=== PATIENT | male | born 1940 | race Caucasian/White ===

== ENCOUNTER 2017-06-18 17:03 | Inpatient (IN) ==
[2017-06-18] MEDS ORDERED: CEFTRIAXONE 1 G in NS 100 ML IV ONE (17:29)
[2017-06-18] MEDS ORDERED: NS 1,000 ML IV ONE (17:29)
--- OUTSIDE RECORDS SUMMARY | 2017-06-18 17:30 | External Medical Summary | Referral Summary ---
:1940 Author Organization [facility] [place], [address] [place] [address] Care Team Providers Name Role Phone Bhaskar Echols Primary Care Physician Encounter VC Date(s): 09/06/15 - 09/06/15 [facility] [place] [place] [phone] [place] Discharge Disposition: 01-Home or Self Care Attending Physician: Bhaskar Echols MD Admitting Physician: Bhaskar Echols MD Vital Signs Most recent to oldest [Reference Range]: 1 Blood Pressure [90-140/60-90 mmHg] 154/62 mmHg *HI* (09/06/15 4:07 PM) Problem List Condition Effective Dates Status Health Status Informant Allergies(Confirmed) Active Benign prostatic Active hypertrophy(Confirmed) Bronchitis(Confirmed) Active Cardiomegaly - Active hypertensive(Confirmed) Cataracts(Confirmed) Active Angina/Chest Pain(Confirmed) < 08/18/14 Resolved Chronic gingivitis, plaque Active induced(Confirmed) Coronary artery disease(Confirmed) Active Macular degeneration(Confirmed) Active Depression(Confirmed) Active Hearing loss(Confirmed) Active Herpes zoster(Confirmed) Active Hyperlipidemia(Confirmed) Active Hypertension(Confirmed) Active Ear infections(Confirmed) Active Bronchitis with flu(Confirmed) Active Irritable bowel syndrome(Confirmed) Active Obesity(Confirmed) Active patient Osteoarthritis(Confirmed) Active Peptic ulcers(Confirmed) Active Pneumonia(Confirmed) Active Sinus infections(Confirmed) Active Tinea cruris(Confirmed) Active Chicken pox(Confirmed) Active Allergies, Adverse Reactions, Alerts Substance Reaction Severity Status pseudoephedrine Active Medications Aspir 81 81 mg, Oral, Daily, 0 Refill(s) Start Date: 04/07/14 Status: Orderedatenolol 25 mg oral tablet 25 mg 1 tabs, Oral, Daily, # 30 tabs, 3 Refill(s), Pharmacy: [facility] # [id number], Pt needs to be seen for further refills or refer to PCP., 1 tabs Oral Daily Start Date: 06/14/15 Status: Orderedcitalopram 40 mg oral tablet tabs, Oral, Daily, 0 Refill(s) Start Date: 04/07/14 Status: Ordereddocusate Daily, as needed, 0 Refill(s) Start Date: 04/07/14 Status: OrderedFiberCon 625 mg oral tablet 635m 3 daily, 0 Refill(s) Start Date: 04/07/14 Status: OrderedLovaza 1 gm, Oral, BID, 0 Refill(s) Start Date: 04/07/14 Status: Orderedpravastatin 40 mg oral tablet See Instructions, TAKE ONE TABLET BY MOUTH EVERY DAY, # 90 tabs, 3 Refill(s), eRx: [facility] #[id number], TAKE ONE TABLET BY MOUTH EVERY DAY Start Date: 04/20/15 Status: OrderedVitamin B Complex oral tablet 1 tabs, Oral, Daily, 0 Refill(s) Start Date: 04/07/14 Status: OrderedVitamin D3 400 Intl_Units, Oral, Daily, 0 Refill(s) Start Date: 08/24/15 Status: OrderedWellbutrin 100 mg oral tablet 1 tabs, Oral, Daily, 0 Refill(s) Start Date: 04/07/14 Status: Ordered Results No data available for this section Immunizations Vaccine Date Refusal Reason influenza virus vaccine, live 08/26/12 pneumococcal 23-polyvalent vaccine 08/06/06 Procedures Procedure Date Related Diagnosis Body Site Colonoscopy 10/21/99 Cardiac Bypass Tonsillectomy Social History Social History Type Response Smoking Status Never smoker Assessment and Plan No data available for this section
--- OUTSIDE RECORDS SUMMARY | 2017-06-18 17:31 | External Medical Summary | Referral Summary ---
:1940 Author Organization [facility] [place] [place] [address] Care Team Providers Name Role Phone Bhaskar Echols Primary Care Physician Encounter [facility] [id number] Date(s): 08/01/16 - 08/01/16 [facility] [place] [place] [phone] [place] Discharge Diagnosis: Chronic gingivitis Discharge Disposition: 01-Home or Self Care Attending Physician: Bhaskar Echols MD Admitting Physician: Bhaskar Echols MD Vital Signs Most recent to oldest [Reference Range]: 1 Peripheral Pulse Rate [60-100 bpm] 77 bpm (08/01/16 2:48 PM) Blood Pressure [90-140/60-90 mmHg] 160/68 mmHg *HI* (08/01/16 2:48 PM) SpO2 92 % (08/01/16 2:48 PM) Problem List Condition Effective Dates Status [...] Active Sinus infections(Confirmed) Active Tinea cruris(Confirmed) Active Tinea cruris(Confirmed) Active Chicken pox(Confirmed) Active Allergies, Adverse Reactions, Alerts Substance Reaction Severity Status pseudoephedrine Active Medications Aspir 81 81 mg, Oral, Daily, 0 Refill(s) Start Date: 04/07/14 Status: Orderedatenolol 25 mg oral tablet 25 mg 1 tabs, Oral, Daily, # 90 tabs, 2 Refill(s), Pharmacy: [id number], 1 tabs Oral Daily Start Date: 04/19/16 Status: Orderedcitalopram 40 mg oral tablet tabs, Oral, Daily, 0 Refill(s) Start Date: 04/07/14 Status: OrderedFiberCon 625 mg oral tablet 635m 3 daily, 0 Refill(s) Start Date: 04/07/14 Status: OrderedKeflex 500 mg oral capsule 500 mg 1 caps, Oral, QID, X 10 days, # 40 caps, 0 Refill(s), Pharmacy: [id number], 1 caps Oral QID,x10 days Start Date: 07/31/16 Stop Date: 08/10/16 Status: OrderedLovaza 1 gm, Oral, BID, 0 Refill(s) Start Date: 04/07/14 Status: Orderedpravastatin 40 mg oral tablet 40 mg 1 tabs, Oral, Bedtime (once a day), X 90 days, # 90 tabs, 2 Refill(s), Pharmacy: [id number], 1 tabs Oral Bedtime (once a day),x90 days Start Date: 04/19/16 Stop Date: 01/14/17 Status: OrderedVitamin B Complex oral tablet 1 tabs, Oral, Daily, 0 Refill(s) Start Date: 04/07/14 Status: OrderedWellbutrin 100 mg oral tablet 200 mg 2 tabs, Oral, Daily, 0 Refill(s) Start Date: 04/07/14 Status: Ordered Results No data available for this section Immunizations Vaccine Date Refusal Reason influenza virus vaccine, live 08/26/12 pneumococcal 23-polyvalent vaccine 08/06/06 Procedures Procedure Date Related Diagnosis Body Site Colonoscopy 10/21/99 Cardiac Bypass Tonsillectomy Social History Social History Type Response Smoking Status Never smoker Assessment and Plan Extracted from: Title: Ambulatory Patient Education Author: Bhaskar Echols MD Date: Dentistry Gingivitis Gingivitis is a form of gum (periodontal) disease that causes redness, soreness , and swelling (inflammation) of your gums. CAUSES The most common cause of gingivitis is poor oral hygiene. A sticky substance made of bacteria, mucus, and food particles (plaque), is deposited on the exposed part of teeth. As plaque builds up, it reac ts with the saliva in your mouth to form something called tartar. Tartar is a hard deposit that becomes trapped around the base of the tooth. Plaque and tartar irritate the gums, leading to the formati on of gingivitis. Other factors that increase your risk for gingivitis include: Tobacco use. Diabetes. Older age. Certain medications. Certain viral or fungal infections. Dry mouth. Hormonal changes such as during . Poor nutrition. Substance abuse. Poor fitting dental restorations or appliances. SYMPTOMS You may notice inflammation of the soft tissue (gingiva) around the teeth. When these tissues become inflamed, they bleed easily, especially during flossing or brushing. The gums may also be: Tender to the touch. Bright red, purple red, or have a shiny appearance. Swollen. Wearing away from the teeth (receding), which exposes more of the tooth. Bad breath is often present. Continued infection around teeth can eventually cause cavities and loosen teeth. This may lead to eventual tooth loss. DIAGNOSIS A medical and dental history will be taken. Your mouth, teeth, and gums will be examined. Your dentist will look for soft, swollen purple-red, irritated gums. There may be deposits of plaque and tartar at the base of the teeth. Your gums will be looked at for the degree of redness , puffiness, and bleeding tendencies. Your dentist will see if any of the teeth are loose. X-rays may be taken to see if th e inflammation has spread to the supporting structures of the teeth. TREATMENT The goal is to reduce and reverse the inflammation. Proper treatment can usually reverse the symptoms of gingivitis and prevent further progression of the disease. Have your teeth cleaned. During the cl eaning, all plaque and tartar will be removed. Instruction for proper home care will be given. You will need regular professional cleanings and check-ups in the future. HOME CARE INSTRUCTIONS [place] your teeth twice a day and floss at least once per day. When flossing, it is best to floss first then brush. Limit sugar between meals and maintain a well-balanced diet. Even the best dental hygiene will not prevent plaque from developing. It is necessary for you to see your dentist on a regular basis for cleaning and regular checkups. Your dentist can recommend proper oral hygiene and mouth care and suggest special toothpastes or mouth rinses. Stop smoking. SEEK DENTAL OR MEDICAL CARE IF: You have painful, reddened tissue around your teeth, or you have puffy swollen gums. You have difficulty chewing. You notice any loose or infected teeth. You have swollen glands. Your gums bleed easily when you brush your teeth or are very tender to the touch. This information is not intended to replace advice given to you by your health care provider. Make sure you discuss any questions you have with your health care provider. Document Released: 03/19/2002 Document Revised: 12/15/2012 Document Reviewed: 12/28/2011 [employer] Patient Education 2016 [employer] No follow up information was provided. Extracted from: Title: Office Visit Note Author: Bhaskar Echols MD Date: 08/01/16 Assessment/Plan 1.Chronic gingivitis Continue with the Keflex which seems to be working and he can afford it. Also would suggest warm salt water gargles. He needs to get into the dentist and have the teeth pulled. Ordered: Office Visit Level 2 Est 38588
--- OUTSIDE RECORDS SUMMARY | 2017-06-18 17:31 | External Medical Summary | Referral Summary ---
:1940 [facility] Address [address] [place] [address] [place] [address] Care Team Providers Name Role Phone Bhaskar Echols Primary Care Physician Encounter [facility] Date(s): 11/25/15 - 11/25/15 [facility] [place] [place] [phone] [place] Discharge Disposition: 01-Home or Self Care Attending Physician: Bhaskar Echols MD Admitting Physician: Bhaskar Echols MD Vital Signs Most recent to oldest [Reference Range]: 1 Peripheral Pulse Rate [60-100 bpm] 67 bpm (11/25/15 2:58 PM) Blood Pressure [90-140/60-90 mmHg] 132/64 mmHg (11/25/15 2:58 PM) SpO2 93 % (11/25/15 2:58 PM) Problem List Condition Effective Dates Status [...] 04/07/14 Status: Orderedatenolol 25 mg oral tablet See Instructions, TAKE ONE TABLET BY MOUTH DAILY; needs to schedule appt for further refills, or getfrom PCP, # 14 tabs, 0 Refill(s), Pharmacy: [facility] #[id number], TAKE ONE TABLET BY MOUTH DAILY; needs to schedule appt for further refills, or g... Start Date: 11/18/15 Status: Orderedcitalopram 40 mg oral tablet tabs, Oral, Daily, 0 Refill(s) Start Date: 04/07/14 Status: OrderedFiberCon 625 mg oral tablet 635m 3 daily, 0 Refill(s) Start Date: 04/07/14 Status: OrderedLovaza 1 gm, Oral, BID, 0 Refill(s) Start Date: 04/07/14 Status: Orderedpravastatin 40 mg oral tablet See Instructions, TAKE ONE TABLET BY MOUTH EVERY DAY, # 90 tabs, 3 Refill(s), eRx: [facility] #[id number], TAKE ONE TABLET BY MOUTH EVERY DAY Start Date: 04/20/15 Status: OrderedVitamin B Complex oral tablet 1 tabs, Oral, Daily, 0 Refill(s) Start Date: 04/07/14 Status: OrderedVitamin D3 400 Intl_Units, Oral, Daily, 0 Refill(s) Start Date: 08/24/15 Status: OrderedWellbutrin 100 mg oral tablet 200 [...]
--- OUTSIDE RECORDS SUMMARY | 2017-06-18 17:31 | External Medical Summary | Referral Summary ---
:1940 Author [facility] Address [address] [place] [address] [place] [address] Care Team Providers Name Role Phone Bhaskar Echols Primary Care Physician Encounter VC [facility] [id number] Date(s): 07/21/15 - 07/21/15 [facility] [place] [place] [phone] [place] Discharge Diagnosis: Tinea unguium Discharge Diagnosis: Abscess of pulp of tooth Discharge Diagnosis: Tinea cruris Discharge Disposition: 01-Home or Self Care Attending Physician: Bhaskar Echols MD Admitting Physician: Bhaskar Echols MD Vital Signs Most recent to oldest [Reference Range]: 1 Temperature Tympanic [36.6-38.1 degC] 37.6 degC (07/21/15 1:04 PM) Peripheral Pulse Rate [60-100 bpm] 76 bpm (07/21/15 1:04 PM) Respiratory Rate [14-20 br/min] 20 br/min (07/21/15 1:04 PM) Blood Pressure [90-140/60-90 mmHg] 140/68 mmHg (07/21/15 1:04 PM) Problem List Condition Effective Dates Status [...] 1 tabs, Oral, Daily, # 90 tabs, 3 Refill(s), Pharmacy: [facility] # [id number], 1 tabs Oral Daily Start Date: 01/04/16 Status: Orderedcitalopram 40 mg oral tablet tabs, Oral, Daily, 0 Refill(s) Start Date: 04/07/14 Status: OrderedFiberCon 625 mg oral tablet 635m 3 daily, 0 Refill(s) Start Date: 04/07/14 Status: OrderedLovaza 1 gm, Oral, BID, 0 Refill(s) Start Date: 04/07/14 Status: Orderedpravastatin 40 mg oral tablet 40 mg 1 tabs, Oral, Bedtime (once a day), # 90 tabs, 3 Refill(s), Pharmacy: [facility] #[id number], 1 tabs Oral Bedtime (once a day) Start Date: 01/04/16 Status: OrderedVitamin B Complex oral tablet 1 [...] Education Author: Bhaskar Echols MD Date: Dentistry Dental Care and Dentist Visits Dental care supports good overall health. Regular dental visits can also help you avoid dental pain, bleeding, infection, and other more serious health problems in the future. It is important to keep th e mouth healthy because diseases in the teeth, gums, and other oral tissues can spread to other areas of the body. Some problems, such as diabetes, heart disease, and pre-term labor have been associated with poor oral health. See your dentist every 6 months. If you experience emergency problems such as a toothache or broken tooth, go to the dentist right away. If you see your dentist regularly, you may catch problems early. It is easier to be treated for problems in the early stages. WHAT TO EXPECT AT A DENTIST VISIT Your dentist will look for many common oral health problems and recommend proper treatment. At your regular dental visit, you can expect: Gentle cleaning of the teeth and gums. This includes scraping and polishing. This helps to remove the sticky substance around the teeth and gums ( plaque). Plaque forms in the mouth shortly after ea ting. Over time, plaque hardens on the teeth as tartar. If tartar is not removed regularly, it can cause problems. Cleaning also helps remove stains. Periodic X-rays. These pictures of the teeth and supporting bone will help your dentist assess the health of your teeth. Periodic fluoride treatments. Fluoride is a natural mineral shown to help strengthen teeth. Fluoride treatmentinvolves applying a fluoride gel or varnish to the teeth. It is most commonly done in children. Examination of the mouth, tongue, jaws, teeth, and gums to look for any oral health problems, such as: Cavities (dental caries). This is decay on the tooth caused by plaque, sugar, and acid in the mouth. It is best to catch a cavity when it is small. Inflammation of the gums caused by plaque buildup (gingivitis). Problems with the mouth or malformed or misaligned teeth. Oral cancer or other diseases of the soft tissues or jaws. KEEP YOUR TEETH AND GUMS HEALTHY For healthy teeth and gums, follow these general guidelines as well as your dentist's specific advice: Have your teeth professionally cleaned at the dentist every 6 months. [place] twice daily with a fluoride toothpaste. Floss your teeth daily. Ask your dentist if you need fluoride supplements, treatments, or fluoride toothpaste. Eat a healthy diet. Reduce foods and drinks with added sugar. Avoid smoking. TREATMENT FOR ORAL HEALTH PROBLEMS If you have oral health problems, treatment varies depending on the conditions present in your teeth and gums. Your caregiver will most likely recommend good oral hygiene at each visit. For cavities, gingivitis, or other oral health disease, your caregiver will perform a procedure to treat the problem. This is typically done at a separate appointment. Sometimes your caregiver will refer you to another dental specialist for specific tooth problems or for surgery. SEEK IMMEDIATE DENTAL CARE IF: You have pain, bleeding, or soreness in the gum, tooth, jaw, or mouth area. A permanent tooth becomes loose or from the gum socket. You experience a blow or injury to the mouth or jaw area. Document Released: 06/04/2012 Document Revised: 12/15/2012 Document Reviewed: 06/04/2012 [facility] Patient Information 2015 [employer]. This information is not intended to replace advice given to you by your health care provider. Make sure you discuss any questions you have with your health care provider. Infectious Disease Jock Itch Jock itch is a fungal infection of the skin in the groin area. It is sometimes called "ringworm" even though it is not caused by a worm. A fungus is a type of germ that thrives in dark, damp places. CAUSES This infection may spread from: A fungus infection elsewhere on the body (such as athlete's foot). Sharing towels or clothing. This infection is more common in: Hot, humid climates. People who wear tight-fitting clothing or wet bathing suits for long periods of time. Athletes. Overweight people. People with diabetes. SYMPTOMS Jock itch causes the following symptoms: Red, pink or brown rash in the groin. Rash may spread to the thighs, anus , and buttocks. Itching. DIAGNOSIS Your caregiver may make the diagnosis by looking at the rash. Sometimes a skin scraping will be sent to test for fungus. Testing can be done either by looking under the microscope or by doing a culture (test to try to grow the fungus). A culture can take up to 2 weeks to come back. TREATMENT Jock itch may be treated with: Skin cream or ointment to kill fungus. Medicine by mouth to kill fungus. Skin cream or ointment to calm the itching. Compresses or medicated powders to dry the infected skin. HOME CARE INSTRUCTIONS Be sure to treat the rash completely. Follow your caregiver's instructions. It can take a couple of weeks to treat. If you do not treat the infection long enough, the rash can come back. Wear loose-fitting clothing. Men should wear cotton boxer shorts. Women should wear cotton underwear. Avoid hot baths. Dry the groin area well after bathing. SEEK MEDICAL CARE IF: Your rash is worse. Your rash is spreading. Your rash returns after treatment is finished. Your rash is not gone in 4 weeks. Fungal infections are slow to respond to treatment. Some redness may remain for several weeks after the fungus is gone. SEEK IMMEDIATE MEDICAL CARE IF: The area becomes red, warm, tender, and swollen. You have a fever. Document Released: 09/13/2003 Document Revised: 12/15/2012 Document Reviewed: 08/12/2009 [facility] Patient Information 2015 [employer]. This information is not intended to replace advice given to you by your health care provider. Make sure you discuss any questions you have with your health care provider. No follow up information was provided. Extracted from: Title: Office Visit Note Author: Bhaskar Echols MD Date: 07/21/15 Assessment/Plan Abscess of pulp of tooth, Pulpitis Rx for Keflex 500mg tid. Also suggest warm salt water gargles. Ordered: Office Visit Level 4 Est 06674 Tinea cruris, Tinea cruris [place] Exira. Rx for Lotrisone cream. Ordered: Office Visit Level 4 Est 40219 Tinea unguium, Tinea unguium Refer back to the podiatry. Ordered: Office Visit Level 4 Est 08763 Orders: cephalexin, 500 mg 1 caps, Oral, q8hr, # 30 caps, 0 Refill(s), Pharmacy: [facility] #[id number], 1 caps Oral q8hr clotrimazole-betamethasone topical, See Instructions, 1app Topical BID sparingly., # 15 g, 3 Refill(s) HYDROcodone-acetaminophen, 1 tabs, Oral, q6hr, as needed for pain, # 30 tabs , 0 Refill(s) tamsulosin, 0.4 mg 1 caps, Oral, Daily, # 30 caps, 3 Refill(s)
--- OUTSIDE RECORDS SUMMARY | 2017-06-18 17:31 | External Medical Summary | Referral Summary ---
:1940 Author Organization [facility] [place], [facility] Address [address] [place] [address] [place] [address] Care Team Providers Name Role Phone Bhaskar Echols Primary Care Physician Encounter [facility] Date(s): 02/29/16 - 02/29/16 [facility] [place], [address] [place] [phone] [place] Discharge Disposition: 01-Home or Self Care Attending Physician: Riley Roque PA-C Admitting Physician: Riley Roque PA-C Vital Signs Most recent to oldest [Reference Range]: 1 Temperature Tympanic [36.6-38.1 degC] 37 degC (02/29/16 5:48 PM) Peripheral Pulse Rate [60-100 bpm] 88 bpm (02/29/16 5:48 PM) Blood Pressure [90-140/60-90 mmHg] 132/62 mmHg (02/29/16 5:48 PM) SpO2 96 % (02/29/16 5:48 PM) Problem List Condition Effective Dates Status [...] Daily, # 90 tabs, 3 Refill(s), Pharmacy: [facility] # [id number], 1 tabs Oral Daily Start Date: 01/04/16 Status: Orderedcitalopram 40 mg oral tablet tabs, Oral, Daily, 0 Refill(s) Start Date: 04/07/14 Status: OrderedFiberCon 625 mg oral tablet 635m 3 daily, 0 Refill(s) Start Date: 04/07/14 Status: OrderedhydrOXYzine hydrochloride 25 mg oral tablet 25 mg 1 tabs, Oral, QID, as needed for anxiety, # 40 tabs, 0 Refill(s) Start Date: 02/03/16 Status: OrderedKeflex 500 mg oral capsule 500 mg 1 caps, Oral, TID, X 10 days, # 30 caps, 0 Refill(s), Pharmacy: [facility] #[id number], 1 caps Oral TID,x10 days Start Date: 02/22/16 Stop Date: 03/03/16 Status: OrderedLovaza 1 gm, Oral, BID, 0 Refill(s) Start Date: 04/07/14 Status: Orderedpravastatin 40 mg oral tablet 40 mg 1 tabs, Oral, Bedtime (once a day), # 90 tabs, 3 Refill(s), Pharmacy: [facility] #[id number], 1 tabs Oral Bedtime (once a day) [...]
--- OUTSIDE RECORDS SUMMARY | 2017-06-18 17:31 | External Medical Summary | Referral Summary ---
:1940 Author [facility] Address [address] [place] [address] [place] [address] Care Team Providers Name Role Phone Bhaskar Echols Primary Care Physician Encounter [facility] Date(s): 02/03/16 - 02/03/16 [facility] [place] [address] [place] [phone] [place] Discharge Disposition: 01-Home or Self Care Attending Physician: Bhaskar Echols MD Admitting Physician: Bhaskar Echols MD Vital Signs Most recent to oldest [Reference Range]: 1 Peripheral Pulse Rate [60-100 bpm] 65 bpm (02/03/16 10:25 AM) Blood Pressure [90-140/60-90 mmHg] 136/60 mmHg (02/03/16 10:25 AM) SpO2 95 % (02/03/16 10:25 AM) Problem List Condition Effective Dates Status Health [...] Daily, # 90 tabs, 3 Refill(s), Pharmacy: [facility] # [id number], 1 tabs Oral Daily Start Date: 01/04/16 Status: Orderedcitalopram 40 mg oral tablet tabs, Oral, Daily, 0 Refill(s) Start Date: 04/07/14 Status: OrderedFiberCon 625 mg oral tablet 635m 3 daily, 0 Refill(s) Start Date: 04/07/14 Status: OrderedhydrOXYzine hydrochloride 25 mg oral tablet 25 mg 1 tabs, Oral, QID, as needed for anxiety, # 40 tabs, 0 Refill(s) Start Date: 02/03/16 Status: OrderedLovaza 1 gm, Oral, BID, 0 Refill(s) Start Date: 04/07/14 Status: Orderedpravastatin 40 mg oral tablet 40 mg 1 tabs, Oral, Bedtime (once a day), # 90 tabs, 3 Refill(s), Pharmacy: [facility] #[id number], 1 tabs Oral Bedtime (once a day) Start Date: 01/04/16 Status: OrderedpredniSONE 10 mg oral tablet See Instructions, 3 tab oral daily x4 days, then 2 tabs oral daily x4 days, then 1 tab oral daily x 4 days., # 24 tabs, 0 Refill(s) Start Date: 02/03/16 Stop Date: 02/15/16 Status: OrderedVitamin B Complex oral tablet 1 [...]
--- OUTSIDE RECORDS SUMMARY | 2017-06-18 17:31 | External Medical Summary | Referral Summary ---
:1940 Author Organization [facility] Address [address] [place] [address] [place] [address] Care Team Providers Name Role Phone Bhaskar Echols Primary Care Physician Encounter [facility] [id number] Date(s): 01/04/16 - 01/04/16 [facility], [address] [place] [phone] [place] Discharge Diagnosis: Hypercholesteremia Discharge Diagnosis: H/O coronary artery bypass surgery Discharge Diagnosis: Coronary heart disease Discharge Diagnosis: Back ache Discharge Disposition: -Home or Self Care Attending Physician: Lior Whitfield MD Admitting Physician: Lior Whitfield MD Referring Physician: Bhaskar Echols MD Vital Signs Most recent to oldest [Reference Range]: 1 Peripheral Pulse Rate [60-100 bpm] 72 bpm (01/04/16 12:03 PM) Blood Pressure [90-140/60-90 mmHg] 136/60 mmHg (01/04/16 12:03 PM) Problem List Condition Effective Dates Status [...] Daily, # 90 tabs, 3 Refill(s), Pharmacy: [facility] # [id number], 1 tabs Oral Daily Start Date: 01/04/16 [...] day), # 90 tabs, 3 Refill(s), Pharmacy: [facility] #[id number], 1 tabs Oral Bedtime (once a day) [...]
--- OUTSIDE RECORDS SUMMARY | 2017-06-18 17:31 | External Medical Summary | Referral Summary ---
:1940 Author Organization [facility] [place] [address] Care Team Providers Name Role Phone Bhaskar Echols Primary Care Physician Encounter [facility] Date(s): 06/21/16 - 06/21/16 [facility] [place] [phone] [place] Discharge Diagnosis: Acute URI Discharge Disposition: 01-Home or Self Care Attending Physician: Bhaskar Echols MD Admitting Physician: Bhaskar Echols MD Vital Signs Most recent to oldest [Reference Range]: 1 Peripheral Pulse Rate [60-100 bpm] 66 bpm (06/21/16 2:02 PM) Blood Pressure [90-140/60-90 mmHg] 126/62 mmHg (06/21/16 2:02 PM) SpO2 95 % (06/21/16 2:02 PM) Problem List Condition Effective Dates Status [...] Daily, # 90 tabs, 2 Refill(s), Pharmacy: [id number], 1 tabs Oral Daily [...] days, # 90 tabs, 2 Refill(s), Pharmacy: [id number], 1 tabs Oral Bedtime (once a day),x90 days Start Date: 04/19/16 Stop Date: 01/14/17 Status: OrderedVitamin B Complex oral tablet 1 tabs, Oral, Daily, 0 Refill(s) Start Date: 04/07/14 Status: OrderedWellbutrin 100 mg oral tablet 200 mg 2 tabs, Oral, Daily, 0 Refill(s) Start Date: 04/07/14 Status: OrderedZithromax Z-Koby 250 mg oral tablet 1 packets, Oral, Daily, as directed on package labeling, X 5 days, # 6 tabs, 0 Refill(s), Pharmacy: [id number], 1 packets Oral Daily,x5 days,Instr: as directed on package labeling Start Date: 06/21/16 Stop Date: 06/26/16 Status: Ordered Results No data available for this section Immunizations Vaccine Date Refusal Reason influenza virus vaccine, live 08/26/12 pneumococcal 23-polyvalent vaccine 08/06/06 Procedures Procedure Date Related Diagnosis Body Site Colonoscopy 10/21/99 Cardiac Bypass Tonsillectomy Social History Social History Type Response Smoking Status Never smoker Assessment and Plan No data available for this section
--- OUTSIDE RECORDS SUMMARY | 2017-06-18 17:31 | External Medical Summary | Referral Summary ---
:1940 Author Organization [facility] [place] [address] Care Team Providers Name Role Phone Bhaskar Echols Primary Care Physician Encounter [facility] Date(s): 11/05/16 - 11/05/16 [facility] [place] [phone] [place] Discharge Diagnosis: COPD (chronic obstructive pulmonary disease) Discharge Diagnosis: Acute URI Discharge Disposition: 01-Home or Self Care Attending Physician: Bhaskar Echols MD Admitting Physician: Bhaskar Echols MD Vital Signs Most recent to oldest [Reference Range]: 1 Peripheral Pulse Rate [60-100 bpm] 80 bpm (11/05/16 1:23 PM) Blood Pressure [90-140/60-90 mmHg] 136/58 mmHg (11/05/16 1:23 PM) SpO2 92 % (11/05/16 1:23 PM) Problem List Condition Effective Dates Status [...] Osteoarthritis(Confirmed) Active Peptic ulcers(Confirmed) Active Pneumonia(Confirmed) Active COPD (chronic obstructive pulmonary Active disease)(Confirmed) Sinus infections(Confirmed) Active Tinea cruris(Confirmed) Active Tinea cruris(Confirmed) Active Chicken pox(Confirmed) Active Allergies, Adverse Reactions, Alerts Substance Reaction Severity Status pseudoephedrine Active Medications Advair Diskus 250 mcg-50 mcg inhalation powder 1 puffs, Inhalation, Daily, 0 Refill(s) Start Date: 11/05/16 Status: OrderedAspir 81 81 mg, Oral, Daily, 0 Refill(s) Start Date: 04/07/14 Status: Orderedatenolol 25 mg oral tablet 25 mg 1 tabs, Oral, Daily, # 90 tabs, 2 Refill(s), Pharmacy: [facility], 1 tabs Oral Daily Start Date: 04/19/16 Status: Orderedcitalopram 40 mg oral tablet tabs, Oral, Daily, 0 Refill(s) Start Date: 04/07/14 Status: OrderedFiberCon 625 mg oral tablet 635m 3 daily, 0 Refill(s) Start Date: 04/07/14 Status: Orderedpravastatin 40 mg oral tablet 40 mg 1 tabs, Oral, Bedtime (once a day), X 90 days, # 90 tabs, 2 Refill(s), Pharmacy: [facility], 1 tabs Oral Bedtime (once a day),x90 days Start Date: 04/19/16 Stop Date: 01/14/17 Status: OrderedVitamin B Complex oral tablet 1 tabs, Oral, Daily, 0 Refill(s) Start Date: 04/07/14 Status: Ordered Results No data available for this section Immunizations Given and Recorded Vaccine Date Status Refusal Reason influenza virus vaccine, live 08/26/12 Given pneumococcal 23-polyvalent vaccine 08/06/06 Recorded Procedures Procedure Date Related Diagnosis Body Site Colonoscopy 10/21/99 Cardiac Bypass Tonsillectomy Social History Social History Type Response Smoking Status Never smoker Assessment and Plan Extracted from: Title: Ambulatory Patient Education Author: Bhaskar Echols MD Date: [place] Upper Respiratory Infection, Adult Most upper respiratory infections (URIs) are caused by a virus. A URI affects the nose, throat, and upper air passages. The most common type of URI is often called "the common cold." HOME CARE Take medicines only as told by your doctor. Gargle warm saltwater or take cough drops to comfort your throat as told by your doctor. Use a warm mist humidifier or inhale steam from a shower to increase air moisture. This may make it easier to breathe. Drink enough fluid to keep your pee (urine) clear or pale yellow. Eat soups and other clear broths. Have a healthy diet. Rest as needed. Go back to work when your fever is gone or your doctor says it is okay. You may need to stay home longer to avoid giving your URI to others. You can also wear a face mask and wash your hands often to prevent spread of the virus. Use your inhaler more if you have asthma. Do not use any tobacco products, including cigarettes, chewing tobacco, or electronic cigarettes. If you need help quitting, ask your doctor. GET HELP IF: You are getting worse, not better. Your symptoms are not helped by medicine. You have chills. You are getting more short of breath. You have brown or red mucus. You have yellow or brown discharge from your nose. You have pain in your face, especially when you bend forward. You have a fever. You have puffy (swollen) neck glands. You have pain while swallowing. You have white areas in the back of your throat. GET HELP RIGHT AWAY IF: You have very bad or constant: Headache. Ear pain. Pain in your forehead, behind your eyes, and over your cheekbones ( sinus pain). Chest pain. You have long-lasting (chronic) lung disease and any of the following: Wheezing. Long-lasting cough. Coughing up blood. A change in your usual mucus. You have a stiff neck. You have changes in your: Vision. Hearing. Thinking. Mood. MAKE SURE YOU: Understand these instructions. Will watch your condition. Will get help right away if you are not doing well or get worse. This information is not intended to replace advice given to you by your health care provider. Make sure you discuss any questions you have with your health care provider. Document Released: 03/11/2009 Document Revised: 02/07/2016 Document Reviewed: 12/29/2014 [employer] Patient Education 2016 [employer] Family Medicine Chronic Obstructive Pulmonary Disease Exacerbation Chronic obstructive pulmonary disease (COPD) is a common lung problem. In COPD , the flow of air from the lungs is limited. COPD exacerbations are times that breathing gets worse and you need extra treat ment. Without treatment they can be life threatening. If they happen often, your lungs can become more damaged. If your COPD gets worse, your doctor may treat you with: Medicines. Oxygen. Different ways to clear your airway, such as using a mask. HOME CARE Do not smoke. Avoid tobacco smoke and other things that bother your lungs. If given, take your antibiotic medicine as told. Finish the medicine even if you start to feel better. Only take medicines as told by your doctor. Drink enough fluids to keep your pee (urine) clear or pale yellow ( unless your doctor has told you not to). Use a cool mist machine (vaporizer). If you use oxygen or a machine that turns liquid medicine into a mist ( nebulizer), continue to use them as told. Keep up with shots (vaccinations) as told by your doctor. Exercise regularly. Eat healthy foods. Keep all doctor visits as told. GET HELP RIGHT AWAY IF: You are very short of breath and it gets worse. You have trouble talking. You have bad chest pain. You have blood in your spit (sputum). You have a fever. You keep throwing up (vomiting). You feel weak, or you pass out (faint). You feel confused. You keep getting worse. MAKE SURE YOU: Understand these instructions. Will watch your condition. Will get help right away if you are not doing well or get worse. This information is not intended to replace advice given to you by your health care provider. Make sure you discuss any questions you have with your health care provider. Document Released: 09/11/2012 Document Revised: 10/14/2015 Document Reviewed: 05/28/2014 [employer] Patient Education 2016 [employer] No follow up information was provided. Extracted from: Title: Office Visit Note Author: Bhaskar Echols MD Date: 11/05/16 Assessment/Plan 1.COPD (chronic obstructive pulmonary disease) Continue with the nebulizer and Advair inhaler. Ordered: Office Visit Level 3 Est 41186 2.Acute URI Repeat the Z-pack sincehe seem to do well. Ordered: Office Visit Level 3 Est 17307
--- OUTSIDE RECORDS SUMMARY | 2017-06-18 17:31 | External Medical Summary | Referral Summary ---
:1940 [facility] Address [address] [place] [address] [place] [address] Care Team Providers Name Role Phone Bhaskar Echols Primary Care Physician Encounter [facility] Date(s): 11/23/16 - 11/23/16 [facility] [place] [address] [place] Discharge Disposition: 01-Home or Self Care Attending Physician: Bhaskar Echols MD Admitting Physician: Bhaskar Echols MD Vital Signs Most recent to oldest [Reference Range]: 1 Temperature Tympanic [36.6-38.1 degC] 36.5 degC *LOW* (11/23/16 1:36 PM) Peripheral Pulse Rate [60-100 bpm] 80 bpm (11/23/16 1:36 PM) Blood Pressure [90-140/60-90 mmHg] 132/74 mmHg (11/23/16 1:36 PM) SpO2 94 % (11/23/16 1:36 PM) Problem List Condition Effective Dates Status [...] Daily, # 90 tabs, 2 Refill(s), Pharmacy: [id number], 1 tabs Oral Daily Start Date: 04/19/16 Status: Orderedcitalopram 40 mg oral tablet tabs, Oral, Daily, 0 Refill(s) Start Date: 04/07/14 Status: OrderedFiberCon 625 mg oral tablet 635m 3 daily, 0 Refill(s) Start Date: 04/07/14 Status: OrderedLasix 20 mg oral tablet 20 mg 1 tabs, Oral, Daily, # 30 tabs, 2 Refill(s), Pharmacy: [facility], 1 tabs Oral Daily Start Date: 11/23/16 Status: Orderedpravastatin 40 mg oral tablet 40 mg 1 tabs, Oral, Bedtime (once a day), X 90 days, # 90 tabs, 2 Refill(s), Pharmacy: [facility], 1 tabs Oral Bedtime (once [...]
--- OUTSIDE RECORDS SUMMARY | 2017-06-18 17:31 | External Medical Summary | Referral Summary ---
:1940 Author Organization [facility] [place] [address] Care Team Providers Name Role Phone Bhaskar Echols Primary Care Physician Encounter [facility] Date(s): 10/24/16 - 10/24/16 [facility] [place] [phone] [place] Discharge Diagnosis: COPD (chronic obstructive pulmonary disease) Discharge Disposition: 01-Home or Self Care Attending Physician: Bhaskar Echols MD Admitting Physician: Bhaskar Echols MD Vital Signs Most recent to oldest [Reference Range]: 1 Peripheral Pulse Rate [60-100 bpm] 62 bpm (10/24/16 2:35 PM) Blood Pressure [90-140/60-90 mmHg] 146/70 mmHg *HI* (10/24/16 2:35 PM) SpO2 94 % (10/24/16 2:35 PM) Problem List Condition Effective Dates Status [...] Daily, # 90 tabs, 2 Refill(s), Pharmacy: [id number], 1 tabs Oral Daily Start Date: 04/19/16 Status: Orderedcitalopram 40 mg oral tablet tabs, Oral, Daily, 0 Refill(s) Start Date: 04/07/14 Status: OrderedFiberCon 625 mg oral tablet 635m 3 daily, 0 Refill(s) Start Date: 04/07/14 Status: Orderedpravastatin 40 mg oral tablet 40 mg 1 tabs, Oral, Bedtime (once a day), X 90 days, # 90 tabs, 2 Refill(s), Pharmacy: [facility], 1 tabs Oral Bedtime [...]
--- OUTSIDE RECORDS SUMMARY | 2017-06-18 17:31 | External Medical Summary | Referral Summary ---
:1940 Author Organization [facility] [place] [address] Care Team Providers Name Role Phone Onesimo Bhaskar Colton Primary Care Physician Encounter [facility] [id number] Date(s): 03/12/16 - 03/12/16 [facility] [place] [address] [place] Discharge Diagnosis: Exposure to strep throat Discharge Diagnosis: Acute pharyngitis Discharge Disposition: 01-Home or Self Care Attending Physician: Lisandra Russell APRN Admitting Physician: Lisandra Russell APRN Vital Signs Most recent to oldest [Reference Range]: 1 Temperature Tympanic [36.6-38.1 degC] 36.7 degC (03/12/16 1:55 PM) Apical Heart Rate [60-100 bpm] 62 bpm (03/12/16 1:55 PM) Blood Pressure [90-140/60-90 mmHg] 140/62 mmHg (03/12/16 1:55 PM) SpO2 95 % (03/12/16 1:55 PM) Problem List Condition Effective Dates Status [...] Daily, # 90 tabs, 3 Refill(s), Pharmacy: [facility] # [id number], 1 tabs Oral Daily Start Date: 01/04/16 [...] day), # 90 tabs, 3 Refill(s), Pharmacy: [facility] #[id number], 1 tabs Oral Bedtime (once a day) [...]
--- OUTSIDE RECORDS SUMMARY | 2017-06-18 17:31 | External Medical Summary | Referral Summary ---
:1940 Author Organization [facility] [place] [address] Care Team Providers Name Role Phone Echols Bhaskar Colton Primary Care Physician Encounter VC [facility] [id number] Date(s): 09/11/16 - 09/11/16 [facility] [place] [address] [place] Discharge Diagnosis: Cardiomegaly Discharge Diagnosis: Dyspnea on exertion Discharge Diagnosis: COPD (chronic obstructive pulmonary disease) Discharge Disposition: 01-Home or Self Care Attending Physician: Miriam Forte PA-C Admitting Physician: Miriam Forte PA-C Vital Signs Most recent to oldest [Reference Range]: 1 Peripheral Pulse Rate [60-100 bpm] 82 bpm (09/11/16 2:34 PM) Respiratory Rate [14-20 br/min] 18 br/min (09/11/16 2:34 PM) Blood Pressure [90-140/60-90 mmHg] 132/78 mmHg (09/11/16 2:34 PM) Problem List Condition Effective Dates Status Health Status Informant Allergies(Confirmed) Active Benign prostatic Active hypertrophy(Confirmed) Bronchitis(Confirmed) Active Cardiomegaly - Active hypertensive(Confirmed) Cataracts(Confirmed) Active Angina/Chest Pain(Confirmed) < 08/18/14 Resolved Chronic gingivitis, plaque Active induced(Confirmed) COPD (chronic obstructive pulmonary Active disease)(Confirmed) Coronary artery disease(Confirmed) Active Macular degeneration(Confirmed) Active [...] Daily, # 90 tabs, 2 Refill(s), Pharmacy: [id number], 1 tabs Oral Daily Start [...] days, # 90 tabs, 2 Refill(s), Pharmacy: [id number], 1 tabs Oral Bedtime (once [...]
--- OUTSIDE RECORDS SUMMARY | 2017-06-18 17:31 | External Medical Summary | Referral Summary ---
:1940 Author Organization [facility] [place] [address] Care Team Providers Name Role Phone Bhaskar Echols Primary Care Physician Encounter [facility] Date(s): 08/24/15 - 08/24/15 [facility] [place] [address] [place] Discharge Diagnosis: Superficial laceration of right hand Discharge Disposition: 01-Home or Self Care Attending Physician: Miriam Forte PA-C Admitting Physician: Miriam Forte PA-C Vital Signs Most recent to oldest [Reference Range]: 1 Temperature Tympanic [36.6-38.1 degC] 36.3 degC *LOW* (08/24/15 8:40 AM) Peripheral Pulse Rate [60-100 bpm] 64 bpm (08/24/15 8:40 AM) Blood Pressure [90-140/60-90 mmHg] 142/64 mmHg *HI* (08/24/15 8:40 AM) Problem List Condition Effective Dates Status [...] Daily, # 30 tabs, 3 Refill(s), Pharmacy: [facility] # [id number], Pt needs to be seen for further [...] DAY, # 90 tabs, 3 Refill(s), eRx: [facility] #[id number], TAKE ONE TABLET BY MOUTH EVERY DAY [...] Extracted from: Title: Ambulatory Patient Education Author: Miriam Forte PA-C Date: 08/24/15 Family Medicine Laceration Care, Adult A laceration is a cut or lesion that goes through all layers of the skin and into the tissue just beneath the skin. TREATMENT Some lacerations may not require closure. Some lacerations may not be able to be closed due to an increased risk of infection. It is important to see your caregiver as soon as possible after an injury t o minimize the risk of infection and maximize the opportunity for successful closure. If closure is appropriate, pain medicines may be given, if needed. The wound will be cleaned to help prevent infection. Your caregiver will use stitches ( sutures), darrell, wound glue (adhesive), or ski n adhesive strips to repair the laceration. These tools bring the skin edges together to allow for faster healing and a better cosmetic outcome. However, all wounds will heal with a scar. Once the wound has healed, scarring can be minimized by covering the wound with sunscreen during the day for 1 full year. HOME CARE INSTRUCTIONS For sutures or darrell: Keep the wound clean and dry. If you were given a bandage (dressing), you should change it at least once a day. Also, change the dressing if it becomes wet or dirty, or as directed by your caregiver. Wash the wound with soap and water 2 times a day. Rinse the wound off with water to remove all soap. Pat the wound dry with a clean towel. After cleaning, apply a thin layer of the antibiotic ointment as recommended by your caregiver. This will help prevent infection and keep the dressing from sticking. You may shower as usual after the first 24 hours. Do not soak the wound in water until the sutures are removed. Only take [id number] or prescription medicines for pain, discomfort , or fever as directed by your caregiver. Get your sutures or darrell removed as directed by your caregiver. For skin adhesive strips: Keep the wound clean and dry. Do not get the skin adhesive strips wet. You may bathe carefully, using caution to keep the wound dry. If the wound gets wet, pat it dry with a clean towel. Skin adhesive strips will fall off on their own. You may trim the strips as the wound heals. Do not remove skin adhesive strips that are still stuck to the wound. They will fall off in time. For wound adhesive: You may briefly wet your wound in the shower or bath. Do not soak or scrub the wound. Do not swim. Avoid periods of heavy perspiration until the skin adhesive has fallen off on its own. After showe ring or bathing, gently pat the wound dry with a clean towel. Do not apply liquid medicine, cream medicine, or ointment medicine to your wound while the skin adhesive is in place. This may loosen the film before your wound is healed. If a dressing is placed over the wound, be careful not to apply tape directly over the skin adhesive. This may cause the adhesive to be pulled off before the wound is healed. Avoid prolonged exposure to sunlight or tanning lamps while the skin adhesive is in place. Exposure to ultraviolet light in the first year will darken the scar. The skin adhesive will usually remain in place for 5 to 10 days, then naturally fall off the skin. Do not pick at the adhesive film. You may need a tetanus shot if: You cannot remember when you had your last tetanus shot. You have never had a tetanus shot. If you get a tetanus shot, your arm may swell, get red, and feel warm to the touch. This is common and not a problem. If you need a tetanus shot and you choose not to have one, there is a rare chance of getting tetanus. Sickness from tetanus can be serious. SEEK MEDICAL CARE IF: You have redness, swelling, or increasing pain in the wound. You see a red line that goes away from the wound. You have yellowish-white fluid (pus) coming from the wound. You have a fever. You notice a bad smell coming from the wound or dressing. Your wound breaks open before or after sutures have been removed. You notice something coming out of the wound such as wood or glass. Your wound is on your hand or foot and you cannot move a finger or toe. SEEK IMMEDIATE MEDICAL CARE IF: Your pain is not controlled with prescribed medicine. You have severe swelling around the wound causing pain and numbness or a change in color in your arm, hand, leg, or foot. Your wound splits open and starts bleeding. You have worsening numbness, weakness, or loss of function of any joint around or beyond the wound. You develop painful lumps near the wound or on the skin anywhere on your body. MAKE SURE YOU: Understand these instructions. Will watch your condition. Will get help right away if you are not doing well or get worse. Document Released: 09/23/2006 Document Revised: 12/15/2012 Document Reviewed: 03/18/2012 [employer] Patient Information 2015 [facility], [facility]. This information is not intended to replace advice given to you by your health care provider. Make sure you discuss any questions you have with your health care provider. No follow up information was provided. Extracted from: Title: Office Visit Note Author: Miriam Forte PA-C Date: 08/24/15 Assessment/Plan Superficial laceration of right hand This was a very superficial laceration. D/w pt that he needs to change the bandage AT LEAST once a day, and clean with soap and water. Jane use GE if he would like, but keep covered to keep dirt out.The cut to the thumb was also superficial and healing well. He may keep open to airor place bandage on the area. I did not find evidence oftetanus update, andd/w pt that heneeded this today. When the nurse went in togive this to him, he stated that he [facility]. Ordered: Office Visit Level 3 Est 96608
--- OUTSIDE RECORDS SUMMARY | 2017-06-18 17:31 | External Medical Summary | Referral Summary ---
:1940 Author Organization [facility] Address [address] [place] [address] J[place]EN[place] Shaikh [address] Care Team Providers Name Role Phone Bhaskar Echols Primary Care Physician Encounter VC Date(s): 05/02/16 - 05/02/16 [facility] [address] [place] [address] Discharge Disposition: 01-Home or Self Care Attending Physician: Bhaskar Echols MD Admitting Physician: Bhaskar Echols MD Vital Signs Most recent to oldest [Reference Range]: 1 Temperature Tympanic [36.6-38.1 degC] 37.0 degC (05/02/16 3:01 PM) Peripheral Pulse Rate [60-100 bpm] 78 bpm (05/02/16 3:01 PM) Blood Pressure [90-140/60-90 mmHg] 110/60 mmHg (05/02/16 3:01 PM) SpO2 97 % (05/02/16 3:01 PM) Problem List Condition Effective Dates Status [...] Daily, # 90 tabs, 2 Refill(s), Pharmacy: [id number], 1 tabs Oral Daily [...] days, # 90 tabs, 2 Refill(s), Pharmacy: [id number], 1 tabs Oral Bedtime [...]
--- OUTSIDE RECORDS SUMMARY | 2017-06-18 17:32 | External Medical Summary | Referral Summary ---
:1940 Author Organization [facility] [place] [address] [place] Shaikh [address] Care Team Providers Name Role Phone Bhaskar Echols Primary Care Physician Encounter VC Date(s): 07/21/15 - 07/21/15 [facility] [place] [address] [place] [address] [place] Discharge Diagnosis: [...] # 30 tabs, 3 Refill(s), Pharmacy: [facility] # [id number], Pt needs to be seen for further refills or refer to PCP., 1 tabs Oral Daily Start Date: 06/14/15 Status: Orderedcholecalciferol See Instructions, 1 daily. Unsure of dosage., 0 Refill(s) Start Date: 07/21/15 Status: Orderedcitalopram 40 mg oral tablet tabs, Oral, Daily, 0 Refill(s) Start Date: 04/07/14 Status: Ordereddocusate Daily, as needed, 0 Refill(s) Start Date: 04/07/14 Status: OrderedFiberCon 625 mg oral tablet 635m 3 daily, 0 Refill(s) Start Date: 04/07/14 Status: OrderedFlomax 0.4 mg oral capsule 0.4 mg 1 caps, Oral, Daily, # 30 caps, 3 Refill(s) Start Date: 07/21/15 Status: OrderedKeflex 500 mg oral capsule 500 mg 1 caps, Oral, q8hr, # 30 caps, 0 Refill(s), Pharmacy: [facility] # [id number], 1 caps Oral q8hr Start Date: 07/21/15 Stop Date: 10/06/15 Status: OrderedLotrisone 1%-0.05% topical cream See Instructions, 1app Topical BID sparingly., # 15 g, 3 Refill(s) Start Date: 07/21/15 Stop Date: 10/06/15 Status: OrderedLovaza 1 gm, Oral, BID, 0 Refill(s) Start Date: 04/07/14 Status: OrderedNorco 7.5 mg-325 mg oral tablet 1 tabs, Oral, q6hr, as needed for pain, # 30 tabs, 0 Refill(s) Start Date: 07/21/15 Stop Date: 10/06/15 Status: Orderedpravastatin 40 mg oral tablet See Instructions, TAKE ONE TABLET BY MOUTH EVERY DAY, # 90 tabs, 3 Refill(s), eRx: [facility] #[id number], TAKE ONE TABLET BY MOUTH EVERY DAY Start Date: 04/20/15 Status: OrderedVitamin B Complex oral tablet 1 tabs, Oral, Daily, 0 Refill(s) Start Date: 04/07/14 Status: OrderedWellbutrin 100 mg oral tablet 1 [...] cleaned at the dentist every 6 months. [place] twice daily with a fluoride toothpaste. Floss [...] 06/04/2012 Document Revised: 12/15/2012 Document Reviewed: 06/04/2012 [facility] Patient Information 2015 [employer] [facility]. This information is not intended to [...] 09/13/2003 Document Revised: 12/15/2012 Document Reviewed: 08/12/2009 ExitCare Patient Information 2015 [employer]. This information is not intended to replace [...] gargles. Ordered: Office Visit Level 4 Est 18427 Tinea cruris, Tinea cruris [place]. Rx for Lotrisone cream. Ordered: Office Visit Level 4 Est 32178 Tinea unguium, Tinea unguium Refer back to the podiatry. Ordered: Office Visit Level 4 Est 43848 Orders: cephalexin, 500 mg 1 caps, Oral, q8hr, # 30 caps, 0 Refill(s), Pharmacy: [facility] #[id number], 1 caps Oral q8hr clotrimazole-betamethasone topical, See Instructions, 1app Topical BID sparingly., # 15 g, 3 Refill(s) HYDROcodone-acetaminophen, 1 tabs, Oral, q6hr, as needed for pain, # 30 tabs , 0 Refill(s) tamsulosin, 0.4 mg 1 caps, Oral, Daily, # 30 caps, 3 Refill(s)
--- OUTSIDE RECORDS SUMMARY | 2017-06-18 17:32 | External Medical Summary | Referral Summary ---
:1940 Author Organization [facility] Address [address] [place] [address] Care Team Providers Name Role Phone Onesimo Bhaskar Colton Primary Care Physician Encounter VC Date(s): 10/19/16 - 10/19/16 [facility] [address] [place] [address] - [place] Discharge Diagnosis: COPD exacerbation Discharge Disposition: 01-Home or Self Care Attending Physician: Provider, Immediate Care Attending Physician: Fernandez Anna PA-C Admitting Physician: Provider, Immediate Care Vital Signs Most recent to oldest [Reference Range]: 1 Temperature Oral [35.8-37.3 degC] 36.8 degC (10/19/16 1:56 PM) Peripheral Pulse Rate [60-100 bpm] 92 bpm (10/19/16 1:56 PM) Blood Pressure [90-140/60-90 mmHg] 170/76 mmHg *HI* (10/19/16 1:56 PM) SpO2 93 % (10/19/16 1:56 PM) Problem List Condition Effective Dates Status [...] Daily, # 90 tabs, 2 Refill(s), Pharmacy: [id number], 1 tabs Oral Daily Start Date: 04/19/16 Status: Orderedcitalopram 40 mg oral tablet tabs, Oral, Daily, 0 Refill(s) Start Date: 04/07/14 Status: OrderedFiberCon 625 mg oral tablet 635m 3 daily, 0 Refill(s) Start Date: 04/07/14 Status: Orderedpravastatin 40 mg oral tablet 40 mg 1 tabs, Oral, Bedtime (once a day), X 90 days, # 90 tabs, 2 Refill(s), Pharmacy: [facility], 1 tabs Oral Bedtime (once a day),x90 days Start Date: 04/19/16 Stop Date: 01/14/17 Status: OrderedpredniSONE 10 mg oral tablet See Instructions, 4 tabs daily for 3 days 3 tabs daily for 3 days 2 tabs daily for 3 days 1 tab daily for 3 days 1/2 tab daily for 2 days with food, # 31 tabs, 0 Refill(s), Pharmacy: [facility], 4 tabs daily for 3 days; 3 tabs daily f... Start Date: 10/19/16 Stop Date: 10/24/16 Status: OrderedVitamin B Complex oral tablet 1 [...] smoker Assessment and Plan Extracted from: Title: Office Visit Note Author: Fernandez Anna PA-C Date: 10/19/16 Assessment/Plan I reviewed my findings and impressions with the patient at length. On repeat his blood pressure is 138/62. He states he has not taken his atenolol yet today. Prescriptions for Z-Koby and predni sone taper are sent to his pharmacy. He states he has plenty of his 2 inhalers to get him through the weekend. Patient states that he has limited monetary funds and would like the cheapest medicatio ns possible. If the ones that are sent to his pharmacy are too expensive he is instructed to call urgent care back and I will adjust his medications accordingly. Instructed patient if symptoms worse n or new symptoms arise to seek medical attention here, with family physician or at the ER. Instructed patient if symptoms do not improve follow up with PCP in 2-3 days. Patient voiced understanding an d agreed with treatment plan. Patient dismissed in stable condition. COPD exacerbation Ordered: predniSONE, See Instructions, 4 tabs daily for 3 days 3 tabs daily for 3 days 2 tabs daily for 3 days 1 tab daily for 3 days 1/2 tab daily for 2 days with food, # 31 tabs, 0 Refill(s), Pharmacy: [facility], 4 tabs daily for 3 days; 3 tabs daily f... Office Visit Level 3 Est 16192 Cough Ordered: Office Visit Level 3 Est 78275
--- OUTSIDE RECORDS SUMMARY | 2017-06-18 17:32 | External Medical Summary | Referral Summary ---
:1940 Author Organization [facility], [facility] Address [address] [place] [address] [place] Shaikh [address] Care Team Providers Name Role Phone Onesimo Bhaskar Segura Primary Care Physician Encounter VC Date(s): 06/18/16 - 06/18/16 [facility], [address] [place] [address] [place] Discharge Diagnosis: Viral URI Discharge Diagnosis: Low grade fever Discharge Disposition: 01-Home or Self Care Attending Physician: Riley Roque PA-C Admitting Physician: Riley Roque PA-C Vital Signs Most recent to oldest [Reference Range]: 1 Temperature Tympanic [36.6-38.1 degC] 37.6 degC (06/18/16 1:38 PM) Peripheral Pulse Rate [60-100 bpm] 87 bpm (06/18/16 1:38 PM) Blood Pressure [90-140/60-90 mmHg] 120/54 mmHg (06/18/16 1:38 PM) SpO2 95 % (06/18/16 1:38 PM) Problem List Condition Effective Dates Status [...] Daily, # 90 tabs, 2 Refill(s), Pharmacy: [facility], 1 tabs Oral [...] days, # 90 tabs, 2 Refill(s), Pharmacy: [facility], 1 tabs Oral [...] smoker Assessment and Plan Extracted from: Title: uri, low grade fever Author: Riley Roque PA-C Date: 06/18/16 Assessment/Plan Low grade fever Recommended follow-up with primary carehe says he has an appointment arranged for tomorrow. Also recommended [facility] [facility] [facility] [place] [facility]. Viral URI Recommend supportive care. Rest. Practice good hand hygiene. Increase fluids.FU with PCP if not improving, worsening symptoms, or as needed. Questions were answered. Patient verbaliz ed understanding. Patient left in stable condition.
--- OUTSIDE RECORDS SUMMARY | 2017-06-18 17:32 | External Medical Summary | Referral Summary ---
:1940 Author Organization [facility], [facility] Address [address] [place] [address] [place] Shaikh [address] Care Team Providers Name Role Phone Onesimo Bhaskar Segura Primary Care Physician Encounter VC Date(s): 09/16/15 - 09/16/15 [facility], [address] [place] [address] [place] Discharge Diagnosis: Acute URI Discharge Diagnosis: Cough Discharge Diagnosis: Wheeze Discharge Disposition: 01-Home or Self Care Attending Physician: Riley Roque PA-C Admitting Physician: Riley Roque PA-C Vital Signs Most recent to oldest [Reference Range]: 1 Temperature Tympanic [36.6-38.1 degC] 36.5 degC *LOW* (09/16/15 5:36 PM) Apical Heart Rate [60-100 bpm] 76 bpm (09/16/15 5:36 PM) Blood Pressure [90-140/60-90 mmHg] 134/68 mmHg (09/16/15 5:36 PM) SpO2 97 % (09/16/15 5:36 PM) Problem List Condition Effective Dates Status [...] Substance Reaction Severity Status pseudoephedrine Active Medications albuterol 2.5 mg/3 mL (0.083%) inhalation solution 2.5 mg 3 mL, NEB, q6hr (scheduled), # 75 mL, 0 Refill(s), Pharmacy: [facility] #[id number], 3 mL NEB q6hr (scheduled) Start Date: 09/16/15 Status: OrderedAspir 81 81 mg, Oral, Daily, 0 Refill(s) Start Date: 04/07/14 Status: Orderedatenolol 25 mg oral tablet 25 mg 1 tabs, Oral, Daily, # 30 tabs, 3 Refill(s), Pharmacy: [facility] # [id number], Pt needs to be seen for further [...] DAY, # 90 tabs, 3 Refill(s), eRx: [facility] #[id number], TAKE ONE TABLET BY MOUTH EVERY DAY [...] smoker Assessment and Plan Extracted from: Title: cough, uri Author: Riley Roque PA-C Date: 09/16/15 Assessment/Plan Acute URI Recommend supportive care. Rest. Practice good hand hygiene. Increase fluids. Okay to use [id number] cough and cold medication as needed. Tylenol/Ibuprofen as needed for fever or pain. FU with PCP if not improving, worsening symptoms, or as needed. Questions were answered. Patient verbalized understanding. Patient left in stable condition. Cough As above Wheeze Albuterol0.083% as ordered off bilirubins $4 list. I recommended patient use this every 6 hours as neededfor wheezing. Extracted from: Title: cough Author: Riley Roque PA-C Date: 09/16/15 Assessment/Plan Addendum by Riley Roque PA-C on Patient has cough, upper respiratory September 16, 2015 18:26:53 [employer] infection, and reports wheezing which was not auscultated during exam.
--- OUTSIDE RECORDS SUMMARY | 2017-06-18 17:32 | External Medical Summary | Referral Summary ---
:1940 Author Organization [facility], [facility] Address [address] [place] [address] [place] Shaikh [address] Care Team Providers Name Role Phone Echols Bhaskar Colton Primary Care Physician Encounter VC [facility] [id number] Date(s): 08/29/16 - 08/29/16 [facility] [place] [facility], [address] [place] [address] [place] Discharge Diagnosis: Chronic obstructive pulmonary disease (COPD) Discharge Diagnosis: Osteoarthritis of right shoulder Discharge Diagnosis: Complete rotator cuff tear or rupture of right shoulder, not specified as traumatic Discharge Disposition: 01-Home or Self Care Attending Physician: Riley Roque PA-C Admitting Physician: Riley Roque PA-C Vital Signs Most recent to oldest [Reference Range]: 1 Temperature Tympanic [36.6-38.1 degC] 36.7 degC (08/29/16 4:42 PM) Peripheral Pulse Rate [60-100 bpm] 88 bpm (08/29/16 4:42 PM) Blood Pressure [90-140/60-90 mmHg] 153/78 mmHg *HI* (08/29/16 4:42 PM) SpO2 95 % (08/29/16 4:42 PM) Problem List Condition Effective Dates Status [...] Daily, # 90 tabs, 2 Refill(s), Pharmacy: [facility], 1 tabs Oral Daily Start [...] days, # 90 tabs, 2 Refill(s), Pharmacy: [facility], 1 tabs Oral Bedtime (once [...] smoker Assessment and Plan Extracted from: Title: BANDAR Author: Riley Roque PA-C Date: 08/29/16 Assessment/Plan Chronic obstructive pulmonary disease (COPD) Recommended use of the albuterol he wasgiven Xopenex treatment in office. Recommended follow-up with primary careor ER if severe shortness of bing th, chest pain. Overan hourwas spent with this patient. Complete rotator cuff tear or rupture of right shoulder, not specified as traumatic Patient notes unable to afford Lortab, notes Tylenol does not help. Osteoarthritis of right shoulder Shortness of breath As above Shoulder pain Ordered: XR Shoulder Complete Right
--- OUTSIDE RECORDS SUMMARY | 2017-06-18 17:32 | External Medical Summary | Referral Summary ---
:1940 Author Organization [facility], [facility] Address [address] [place] [address] [place] Shaikh [address] Care Team Providers Name Role Phone Bhaskar Echols Primary Care Physician Encounter VC Date(s): 04/03/16 - 04/03/16 [facility] [address] [place] [address] [place] Discharge Disposition: 01-Home or Self Care Attending Physician: Bhaskar Echols MD Admitting Physician: Bhaskar Echols MD Vital Signs Most recent to oldest [Reference Range]: 1 Blood Pressure [90-140/60-90 mmHg] 150/64 mmHg *HI* (04/03/16 3:09 PM) Problem List Condition Effective Dates Status [...] Daily, # 90 tabs, 3 Refill(s), Pharmacy: [facility] # [id number], 1 tabs Oral Daily Start Date: 01/04/16 [...] day), # 90 tabs, 3 Refill(s), Pharmacy: [facility] #[id number], 1 tabs Oral Bedtime (once a day) [...]
--- OUTSIDE RECORDS SUMMARY | 2017-06-18 17:32 | External Medical Summary | Referral Summary ---
:1940 Author Organization [facility] [place] [id number] Care Team Providers Name Role Phone Onesimo Bhaskar Segura Primary Care Physician Encounter VC Date(s): 12/21/15 - 12/21/15 [facility] [place] [phone] [phone] Discharge Diagnosis: H/O vitamin D deficiency Discharge Diagnosis: Urticaria Discharge Diagnosis: Intertrigo Discharge Disposition: 01-Home or Self Care Attending Physician: Miriam Forte PA-C Admitting Physician: Miriam Forte PA-C Vital Signs Most recent to oldest [Reference Range]: 1 Peripheral Pulse Rate [60-100 bpm] 60 bpm (12/21/15 3:10 PM) Respiratory Rate [14-20 br/min] 18 br/min (12/21/15 3:10 PM) Blood Pressure [90-140/60-90 mmHg] 152/74 mmHg *HI* (12/21/15 3:10 PM) Problem List Condition Effective Dates Status [...] See Instructions, TAKE ONE TABLET BY MOUTH DAILY MUST KEEP APPT ON 12/27 FOR FURTHER REFILLS, # 25 tabs, 0 Refill(s), Pharmacy: [facility] #[id number], TAKE ONE TABLET BY MOUTH DAILY MUST KEEP APPT ON 12/27 FOR FURTHER REFILLS Start Date: 12/05/15 Status: Orderedcitalopram 40 mg oral tablet tabs, Oral, Daily, 0 Refill(s) Start Date: 04/07/14 Status: OrderedFiberCon 625 mg oral tablet 635m 3 daily, 0 Refill(s) Start Date: 04/07/14 Status: OrderedLovaza 1 gm, Oral, BID, 0 Refill(s) Start Date: 04/07/14 Status: Orderedpravastatin 40 mg oral tablet See Instructions, TAKE ONE TABLET BY MOUTH EVERY DAY, # 90 tabs, 3 Refill(s), eRx: [facility] #[id number], TAKE ONE TABLET BY MOUTH EVERY DAY [...] Patient Education Author: Miriam Forte PA-C Date: Allergy Hives Hives are itchy, red, swollen areas of the skin. They can vary in size and location on your body. Hives can come and go for hours or several days (acute hives) or for several weeks (chronic hives). Hive s do not spread from person to person (noncontagious). They may get worse with scratching, exercise, and emotional stress. CAUSES Allergic reaction to food, additives, or drugs. Infections, including the common cold. Illness, such as vasculitis, lupus, or thyroid disease. Exposure to sunlight, heat, or cold. Exercise. Stress. Contact with chemicals. SYMPTOMS Red or white swollen patches on the skin. The patches may change size, shape, and location quickly and repeatedly. Itching. Swelling of the hands, feet, and face. This may occur if hives develop deeper in the skin. DIAGNOSIS Your caregiver can usually tell what is wrong by performing a physical exam. Skin or blood tests may also be done to determine the cause of your hives. In some cases, the cause cannot be determined. TREATMENT Mild cases usually get better with medicines such as antihistamines. Severe cases may require an emergency epinephrine injection. If the cause of your hives is known, treatment includes avoiding that trigger. HOME CARE INSTRUCTIONS Avoid causes that trigger your hives. Take antihistamines as directed by your caregiver to reduce the severity of your hives. Non-sedating or low-sedating antihistamines are usually recommended. Do not drive while taking an antihistamine. Take any other medicines prescribed for itching as directed by your caregiver. Wear loose-fitting clothing. Keep all follow-up appointments as directed by your caregiver. SEEK MEDICAL CARE IF: You have persistent or severe itching that is not relieved with medicine. You have painful or swollen joints. SEEK IMMEDIATE MEDICAL CARE IF: You have a fever. Your tongue or lips are swollen. You have trouble breathing or swallowing. You feel tightness in the throat or chest. You have abdominal pain. These problems may be the first sign of a life-threatening allergic reaction. Call your local emergency services (911 in [place] MAKE SURE YOU: Understand these instructions. Will watch your condition. Will get help right away if you are not doing well or get worse. This information is not intended to replace advice given to you by your health care provider. Make sure you discuss any questions you have with your health care provider. Document Released: 09/23/2006 Document Revised: 09/28/2014 Document Reviewed: 12/16/2012 [facility] Patient Information 2015 [facility]. Dentistry Vitamin D Deficiency Vitamin D is an important vitamin that your body needs. Having too little of it in your body is called a deficiency. A very bad deficiency can make your bones soft and can cause a condition called rickets. Vitamin D is important to your body for different reasons, such as: It helps your body absorb 2 minerals called calcium and phosphorus. It helps make your bones healthy. It may prevent some diseases, such as diabetes and multiple sclerosis. It helps your muscles and heart. You can get vitamin D in several ways. It is a natural part of some foods. The vitamin is also added to some dairy products and cereals. Some people take vitamin D supplements. Also, your body makes vit panda D when you are in the sun. It changes the sun's rays into a form of the vitamin that your body can use. CAUSES Not eating enough foods that contain vitamin D. Not getting enough sunlight. Having certain digestive system diseases that make it hard to absorb vitamin D. These diseases include Crohn's disease, chronic pancreatitis, and cystic fibrosis. Having a surgery in which part of the stomach or small intestine is removed. Being obese. Fat cells pull vitamin D out of your blood. That means that obese people may not have enough vitamin D left in their blood and in other body tissues. Having chronic kidney or liver disease. RISK FACTORS Risk factors are things that make you more likely to develop a vitamin D deficiency. They include: Being older. Not being able to get outside very much. Living in a snf. Having had broken bones. Having weak or thin bones (osteoporosis). Having a disease or condition that changes how your body absorbs vitamin D. Having dark skin. Some medicines such as seizure medicines or steroids. Being overweight or obese. SYMPTOMS Mild cases of vitamin D deficiency may not have any symptoms. If you have a very bad case, symptoms may include: Bone pain. Muscle pain. Falling often. Broken bones caused by a minor injury, due to osteoporosis. DIAGNOSIS A blood test is the best way to tell if you have a vitamin D deficiency. TREATMENT Vitamin D deficiency can be treated in different ways. Treatment for vitamin D deficiency depends on what is causing it. Options include: Taking vitamin D supplements. Taking a calcium supplement. Your caregiver will suggest what dose is best for you. HOME CARE INSTRUCTIONS Take any supplements that your caregiver prescribes. Follow the directions carefully. Take only the suggested amount. Have your blood tested 2 months after you start taking supplements. Eat foods that contain vitamin D. Healthy choices include: Fortified dairy products, cereals, or juices. Fortified means vitamin D has been added to the food. Check the label on the package to be sure. Fatty fish like salmon or trout. Eggs. Oysters. Do not use a tanning bed. Keep your weight at a healthy level. Lose weight if you need to. Keep all follow-up appointments. Your caregiver will need to perform blood tests to make sure your vitamin D deficiency is going away. SEEK MEDICAL CARE IF: You have any questions about your treatment. You continue to have symptoms of vitamin D deficiency. You have nausea or vomiting. You are constipated. You feel confused. You have severe abdominal or back pain. MAKE SURE YOU: Understand these instructions. Will watch your condition. Will get help right away if you are not doing well or get worse. This information is not intended to replace advice given to you by your health care provider. Make sure you discuss any questions you have with your health care provider. Document Released: 12/15/2012 Document Revised: 01/18/2014 Document Reviewed: 12/15/2012 [facility] Patient Information 2015 [facility], [facility]. [facility] Intertrigo Intertrigo is a skin condition that occurs in between folds of skin in places on the body that rub together a lot and do not get much ventilation. It is caused by heat, moisture, friction, sweat retenti on, and lack of air circulation, which produces red, irritated patches and, sometimes, scaling or drainage. People who have diabetes, who are obese, or who have treatment with antibiotics are at increased risk for intertrigo. The most common sites for intertrigo to occur include: The groin. The breasts. The armpits. Folds of abdominal skin. Webbed spaces between the fingers or toes. Intertrigo may be aggravated by: Sweat. Feces. Yeast or bacteria that are present near skin folds. Urine. Vaginal discharge. HOME CARE INSTRUCTIONS The following steps can be taken to reduce friction and keep the affected area cool and dry: Expose skin folds to the air. Keep deep skin folds with cotton or linen cloth. Avoid tight fitting clothing that could cause chafing. Wear open-toed shoes or sandals to help reduce moisture between the toes. Apply absorbent powders to affected areas as directed by your caregiver. Apply tyed-[id number]-[id number] barrier pastes, such as zinc oxide, as directed by your caregiver. If you develop a fungal infection in the affected area, your caregiver may have you use antifungal creams. SEEK MEDICAL CARE IF: The rash is not improving after 1 week of treatment. The rash is getting worse (more red, more swollen, more painful, or spreading). You have a fever or chills. MAKE SURE YOU: Understand these instructions. Will watch your condition. Will get help right away if you are not doing well or get worse. This information is not intended to replace advice given to you by your health care provider. Make sure you discuss any questions you have with your health care provider. Document Released: 09/23/2006 Document Revised: 12/15/2012 Document Reviewed: 03/08/2011 [facility] Patient Information 2015 [place]. No follow up information was provided. Extracted from: Title: Office Visit Note- Rash Author: Miriam Forte PA-C Date: Assessment/Plan H/O vitamin D deficiency D/w pt that he should continue on the Vit-D indefinitely. He is also advised that he may have his level checked if he would like. His lab order is in the system already. Ordered: Office Visit Level 4 Est 67262 Intertrigo D/w pt that he does not need more Diflucan at this time. Just advised the pt to keep the area very dry if he can. After showers, make sure to dry off completely and use hair-dryer on cool s etting if needed. May try to apply cornstarch to the area. He is to put socks on first before underwear to avoid spreading any tinea on the feet to the groin. Ordered: Office Visit Level 4 Est 65128 Urticaria These appear to be some sort of allergic reaction to something. I advised some Triamcinolone cream to the lesions, but he states that he cannot afford it. He has hydrocortisone cream at home , and I advised that he use this to the lesions BID. RTCif not improving. Ordered: Office Visit Level 4 Est [id number]
--- NOTE | 2017-06-18 17:49 | Emergency Department Report ---
Extremity Problem HPI - General Chief complaint: Extremity Problem,Nontraumatic <HayleyMichael Ford - 06/18/17 19:22> Stated complaint: rt & lt legs red & swollen <HayleyMichael Ford - 06/18/17 19: 22> Time Seen by Provider: 06/18/17 17:19 <Michael Hardy - 06/18/17 19:22> - History of Present Illness HPI Narrative: 77-year-old male with bilateral lower extremity swelling and pain. Patient has chronic redness of his lower extremity, he was at his massage therapist today and she commented that it was much more red than usual. He went to his primary care provider's office, was seen and referred to the ED for workup. He's had no fever or chills. Has been on Keflex 500 mg 3 times a day for the last week, but has only remember to take it once or twice a day typically. He normally takes his medications once a day, and has a hard time remembering to do more than that. And told he has a history of renal insufficiency with his kidneys functioning at about 50%. He also has a mass on the left kidney but is uncertain what it is, as it is being followed by specialist. No acute shortness of breath, no chest pain. <Vince Ballard - 06/18/17 17:52> - Related Data Home Medications Medication Instructions Recorded Confirmed Vitamin B Complex [Balanced B-50] 1 tab PO DAILY #0 11/24/11 06/18/17 Atenolol 25 mg PO DAILY #0 03/07/12 06/18/17 Aspirin [Adult Low Dose Aspirin EC] 81 mg PO DAILY 06/18/17 06/18/17 Calcium Polycarbophil [Fiber] 1,250 mg PO DAILY 06/18/17 06/18/17 Citalopram [Celexa] 20 mg PO DAILY 06/18/17 06/18/17 Lovastatin [Mevacor] 40 mg PO DAILY 06/18/17 06/18/17 Ben Bolt-3 Acid Ethyl Esters [Lovaza] 2 gm PO DAILY 06/18/17 06/18/17 cephALEXin [Cephalexin] 500 mg PO TID 06/18/17 06/18/17 <Michael Hardy - 06/18/17 19:22> Allergies Allergy/AdvReac Type Severity Reaction Status Date / Time decongestant AdvReac Uncoded 06/18/17 17:13 <Michael Hardy 06/18/17 19:22> Review of Systems All systems: reviewed and negative except as stated <Vince Ballard 17:52> [facility] Patient Stated Medical History Hypertension Yes Depression Yes ADD Memory Impairment <Michael Hardy 06/18/17 19:14> Patient Stated Medical History Hypertension Yes Depression Yes BPH, hypertension, renal insufficiency, patient cannot remember her other medical issues. <Vince Ballard 06/18/17 17:52> Surgical History: Negative <Vince Ballard 06/18/17 17:52> Family History: Negative <Vince Ballard 06/18/17 17:52> - Social History Smoking status: Never smoker <Vince Ballard 06/18/17 17:52> Substance use type: does not use <Vince Ballard 06/18/17 17:52> Physical Exam - Limitations Limitations: no limitations <Vince Ballard 06/18/17 17:52> - General General appearance: alert, in no apparent distress <Vince Ballard 06/18/17 17:52> - Normal Exams: Head:: Normocephalic without trauma <Vince Ballard 06/18/17 17:52> Neck:: Full range of motion, without adenopathy, JVD, bruits or thyromegaly < Vince Ballard 06/18/17 17:52> Cardiovascular:: Regular rate and rhythm, without murmur or gallop, Pulses 2+ all extremities, capillary refill, <2 seconds all extremities <Vince Ballard 06/18/17 17:52> Abdomen:: Bowel sounds positive, soft, non-tender, non-distended, no hepatosplenomegaly, masses or bruits noted <Vince Ballard 06/18/17 17:52> Neurological:: Patient is alert, and oriented, cranial nerves, motor/sensory/ cerebellar, exams w/o gross deficits, to observation <NellieVince Garcia 17:52> Psychiatric:: Patient exhibits, appropriate attention, emotion and affect < [place] early 06/18/17 17:52> - Respiratory Respiratory exam: Present: other (very mild bibasilar rales.) <NellieVince Radha 06/18/17 17:52> - Expanded Lower Extremity Exam Lower leg exam: Present: tenderness (bilateral), swelling (bilateral), other ( significant swelling, 4+ bilateral pitting edema. Skin is red and warm to the touch.). Absent: abrasion, laceration, ecchymosis <NellieVince Radha - 06/18/17 17:52> Course Vital Signs Temperature 98.8 F 06/18/17 17:13 Pulse Rate 88 06/18/17 17:13 Respiratory Rate 17 06/18/17 17:13 Blood Pressure 171/77 H 06/18/17 17:13 Pulse Oximetry 96 06/18/17 17:13 Temperature 98.8 F 06/18/17 17:13 Pulse Rate 88 06/18/17 17:13 Respiratory Rate 17 06/18/17 17:13 Blood Pressure 171/77 H 06/18/17 17:13 Pulse Oximetry 96 06/18/17 17:13 <Michael Hardy - 06/18/17 19:22> Extremity Problem, Nontraumati - MDM Narrative Medical decision making narrative: CBC, CMP normal Patient has a DVT study that was negative However due to the patient's poor living conditions as well as his inability to take medications routinely, as well as ongoing recurrent dental infections, etc. looks suggestive that the patient be given clindamycin. Patient states that he would never be able to take that much medicine on his own, and has no assistance. Currently the patient is unable to live in his home due to dilapidation, and is actually living out of his car. Case discussed with Dr. Jeremias Owen due to failed outpatient treatment, we will admit the patient for IV antibiotics inpatient and executive secretary social welfare consultations <Michael Hardy 06/18/17 19:22> - Lab Data Result diagrams: 06/18/17 17:47 06/18/17 17:44 <Michael Hardy 06/18/17 19:22> Lab Results 06/18/17 06/18/17 06/18/17 Range/Units 17:44 17:47 18:56 WBC 6.7 (4.5-11.0) T/MM3 RBC 4.24 L (4.50-5.90) M/MM3 Hgb 12.6 L (13.5-17.5) GM/DL Hct 37.9 L (41-53) % MCV 89.4 (80-100) UM3 MCH 29.7 (26-34) UUG MCHC 33.2 (31-37) GM/DL RDW Std Deviation 43.7 (36.9-50.2) FL Plt Count 148 (130-400) T/MM3 MPV 9.2 L (9.4-12.4) UM3 Immature Gran % (Auto) 0.3 (0.0-0.5) % Neut % (Auto) 70.0 H (33-66) % Lymph % (Auto) 14.1 L (23-45) % [place] % (Auto) 9.4 H (0-9.0) % Eos % (Auto) 5.6 H (0-4) % Baso % (Auto) 0.6 (0-2) % Neut # 4.7 (1.8-7.7) T/MM3 Lymph # 1.0 (1-4.8) T/MM3 [place] # 0.6 (0-0.8) T/MM3 Eos # 0.4 (0-0.5) T/MM3 Baso # 0.0 (0-0.2) T/MM3 Abs Immat Gran (auto) 0.02 (0.00-0.03) T/MM3 Turbidity < 20 (0-20) Sodium 142 (134-144) MEQ/L Potassium 4.0 (3.6-5) MEQ/L Chloride 109 H (98-107) MEQ/L Carbon Dioxide 21 L (22-30) MEQ/L Anion Gap 12 (5-15) MEQ/L BUN 26.0 H (9-20) MG/DL Creatinine 1.4 (0.8-1.5) MG/DL GFR Calculation 49 BUN/Creatinine Ratio 19 (6-26) RATIO Glucose 116 H (75-110) MG/DL Calculated Osmolality 279 (261-280) MOSM/KG Calcium 9.1 (8.4-10.2) MG/DL Icterus Index < 2 (0-7) B-Natriuretic Peptide 515 H (0-175) pg/mL Specimen Hemolysis 19 (0-25) Ur Collection Type Urine, clean catch Urine Color Yellow (YELLOW) Urine Clarity Clear Urine pH 5.0 (5.0-8.0) Ur Specific [place] 1.020 (1.015-1.025) Urine Protein Negative (NEGATIVE) Urine Glucose (UA) Negative (NEGATIVE) Urine Ketones Negative (NEGATIVE) Urine Occult Blood Negative (NEGATIVE) Urine Nitrate Negative (NEGATIVE) Urine Bilirubin Negative (NEGATIVE) Urine Urobilinogen 0.2 (NORMAL) EU/DL Ur Leukocyte Esterase Negative (NEGATIVE) Urinalysis Comment Microscopic not ind. <Vince Ballard E - 06/18/17 17:46> Lab Results 06/18/17 06/18/17 06/18/17 Range/Units 17:44 17:47 18:56 WBC 6.7 (4.5-11.0) T/MM3 RBC 4.24 L (4.50-5.90) M/MM3 Hgb 12.6 L (13.5-17.5) GM/DL Hct 37.9 L (41-53) % MCV 89.4 (80-100) UM3 MCH 29.7 (26-34) UUG MCHC 33.2 (31-37) GM/DL RDW Std Deviation 43.7 (36.9-50.2) FL Plt Count 148 (130-400) T/MM3 MPV 9.2 L (9.4-12.4) UM3 Immature Gran % (Auto) 0.3 (0.0-0.5) % Neut % (Auto) 70.0 H (33-66) % Lymph % (Auto) 14.1 L (23-45) % [place] % (Auto) 9.4 H (0-9.0) % Eos % (Auto) 5.6 H (0-4) % Baso % (Auto) 0.6 (0-2) % Neut # 4.7 (1.8-7.7) T/MM3 Lymph # 1.0 (1-4.8) T/MM3 [place] # 0.6 (0-0.8) T/MM3 Eos # 0.4 (0-0.5) T/MM3 Baso # 0.0 (0-0.2) T/MM3 Abs Immat Gran (auto) 0.02 (0.00-0.03) T/MM3 Turbidity < 20 (0-20) Sodium 142 (134-144) MEQ/L Potassium 4.0 (3.6-5) MEQ/L Chloride 109 H (98-107) MEQ/L Carbon Dioxide 21 L (22-30) MEQ/L Anion Gap 12 (5-15) MEQ/L BUN 26.0 H (9-20) MG/DL Creatinine 1.4 (0.8-1.5) MG/DL GFR Calculation 49 BUN/Creatinine Ratio 19 (6-26) RATIO Glucose 116 H (75-110) MG/DL Calculated Osmolality 279 (261-280) MOSM/KG Calcium 9.1 (8.4-10.2) MG/DL Icterus Index < 2 (0-7) B-Natriuretic Peptide 515 H (0-175) pg/mL Specimen Hemolysis 19 (0-25) Ur Collection Type Urine, clean catch Urine Color Yellow (YELLOW) Urine Clarity Clear Urine pH 5.0 (5.0-8.0) Ur Specific [place] 1.020 (1.015-1.025) Urine Protein Negative (NEGATIVE) Urine Glucose (UA) Negative (NEGATIVE) Urine Ketones Negative (NEGATIVE) Urine Occult Blood Negative (NEGATIVE) Urine Nitrate Negative (NEGATIVE) Urine Bilirubin Negative (NEGATIVE) Urine Urobilinogen 0.2 (NORMAL) EU/DL Ur Leukocyte Esterase Negative (NEGATIVE) Urinalysis Comment Microscopic not ind. <Michael Hardy 06/18/17 19:14> Disposition Clinical Impression: Lower extremity cellulitis Qualifiers: Laterality: left Qualified Code(s): L03.116 - Cellulitis of left lower limb <Michael Hardy 06/18/17 19:22> [place]: [place] [facility] [place] <Michael Hardy 06/18/17 19:22> Condition: Stable <Michael Hardy 06/18/17 19:22> Instructions: <Michael Hardy 06/18/17 19:22> Prescriptions: No Action Lovastatin [Mevacor] 40 mg PO DAILY Calcium Polycarbophil [Fiber] 1,250 mg PO DAILY Aspirin [Adult Low Dose Aspirin EC] 81 mg PO DAILY Citalopram [Celexa] 20 mg PO DAILY Vitamin B Complex [Balanced B-50] 1 tab PO DAILY #0 Atenolol 25 mg PO DAILY #0 cephALEXin [Cephalexin] 500 mg PO TID Ben Bolt-3 Acid Ethyl Esters [Lovaza] 2 gm PO DAILY <Michael Hardy - 19:22> Referrals: Bhaskar Echols MD [Family Provider] - <Michael Hardy - 06/18 19:22> Forms: <Michael Hardy - 06/18/17 19:22> - Seen By: physician <Michael Hardy - 06/18/17 19:22>
[2017-06-18] MEDS: CLINDAMYCIN PB 600 MG/50 ML BAG IV SCH (20:07)
[2017-06-18 20:50] VITALS: BMI 37.9
[2017-06-18] MEDS ORDERED: HYDROCODONE/APAP 5mg/325mg TABLET PO PRN (21:11)
[2017-06-18] MEDS ORDERED: ONDANSETRON 4 MG/2 ML INJECTION IVP PRN (21:11)
[2017-06-18] MEDS ORDERED: Bisacodyl EC TAB 5 MG TABLET PO PRN (21:11)
--- NOTE | 2017-06-18 21:49 | History & Physical Report ---
<Ruddy Owen I - Last Filed: 06/18/17 21:41> History of Present Illness Date: 06/18/17 Chief complaint: Leg swelling and redness HPI: This is a pleasant 77 year old white male who has had chronic lower extremity swelling, with some redness, he states for at least 4-5 months. However in the last week it has become much worse, exacerbated by a change in his living arrangements, he is currently sleeping in his car which does not allow him to elevate his legs at night. He was seen in clinic after referred there by a massage therapist, they apparently referred him to the ED. He denies recent fevers or chills. He has been partially treating his legs and what sounds like some smouldering dental infections/abscesses with Keflex which was prescribed for dental infections, although he admits that he has trouble remembering to take regularly scheduled meds like antibiotics, as he has memory struggles. In the ER, he was felt to have cellulitis, L>R, of the lower extremities which has failed outpatient treatment, albeit for obvious reasons; it certainly is reasonable to admit him for IV antibiotics at this time before it gets any worse. Venous doppler was negative for DVT. Review of Systems - Constitutional Constitutional: Present: fatigue. Absent: anorexia, chills, fever(s), headache( s), night sweats - EENMT Eyes: Absent: blurry vision, change in vision - Cardiovascular Cardiovascular: Present: dyspnea on exertion (Some chronic LIU, has not changed ). Absent: chest pain, palpitations, syncope Vascular: Present: pedal edema, varicosities (Chronic ) - Respiratory Respiratory: Present: dyspnea on exertion (As above, is chronic and unchanged). Absent: cough, dyspnea - Gastrointestinal Gastrointestinal: Absent: abdominal pain, change in bowel habits, diarrhea - Genitourinary Genitourinary: Present: difficulty urinating (Chronic with known BPH, off flomax and proscar), urinary frequency - Musculoskeletal Musculoskeletal: Absent: back pain - Integumentary/Breasts Integumentary: Present: pruritus (on legs and thighs), rash - Allergic/Immunologic Allergic/Immunologic: Absent: tongue swelling, throat swelling PFS Patient Stated Medical History Hypertension Yes Other Yes: left kidney mass Cellulitis Yes: current 06/18/17 Depression Yes CABG 2012, He was age 64 CKD BPH ADD/Memory Impairment Recurrent dental infections/problems with implants Surgical History: CABG 2012 - Social History Smoking status: Never smoker Housing: other (Most recently there were problems with his mobile home and he has been sleeping in his car apparently) Medications Home Medications Medication Instructions Recorded Confirmed Type Vitamin B Complex [Balanced B-50] 1 tab PO DAILY #0 11/24/11 06/18/17 History Atenolol 25 mg PO DAILY #0 03/07/12 06/18/17 History Aspirin [Adult Low Dose Aspirin EC] 81 mg PO DAILY 06/18/17 06/18/17 History Calcium Polycarbophil [Fiber] 1,250 mg PO DAILY 06/18/17 06/18/17 History Citalopram [Celexa] 20 mg PO DAILY 06/18/17 06/18/17 History Lovastatin [Mevacor] 40 mg PO DAILY 06/18/17 06/18/17 History [place]es[place]-3 Acid Ethyl Esters [Lovaza] 2 gm PO DAILY 06/18/17 06/18/17 History cephALEXin [Cephalexin] 500 mg PO TID 06/18/17 06/18/17 History Allergies Allergy/AdvReac Type Severity Reaction Status Date / Time decongestant AdvReac Uncoded 06/18/17 17:13 Exam Vital Signs: Temperature 96.8 F 06/18/17 20:28 Pulse Rate 67 06/18/17 20:28 Respiratory Rate 18 06/18/17 20:28 Blood Pressure 155/71 H 06/18/17 20:28 Pulse Oximetry 98 06/18/17 20:28 Height/Weight/BMI: Height 5 ft 8 in Weight 113.2 kg Body Mass Index 37.9 - Constitutional Present: no acute distress - Routine HEENT Exam Head: Present: normocephalic, atraumatic Eye: Present: EOMI, PERRL ENT: Present: mucous membranes moist. Absent: dentition normal - Routine Neck Exam Present: supple. Absent: JVD - Routine Chest/Breast/Axilla Exam Chest wall: Absent: tenderness - Routine Respiratory Exam Present: CTA bilaterally. Absent: accessory muscle use, dyspnea - Routine Cardiovascular Exam Present: RRR, S1, S2, no murmur - Routine Abdominal Exam Present: normoactive bowel sounds, non distended, non tender - Routine Extremities Exam Present: edema (1-2 + LE's, Pedal 2+, erythema L>R, no open lesions or drainage) . Absent: cyanosis, clubbing - Routine Skin Exam Present: rash Comments: See above, also some excoriations and ?xerosis R thigh, groin - Routine Neurological Exam Present: alert, oriented X3, CN II-XII intact, vision grossly intact, hearing grossly intact - Routine Psychiatric Exam Present: normal thought process, cooperative Comments: pleasant Results - Labs CBC & Chem 7: 06/18/17 17:47 06/18/17 17:44 Assessment and Plan DVT Prophylaxis: Lovenox Resuscitation Status: Full Code Assessment and Plan: 1. Cellulitis of bilateral lower extremities, L > R, failed outpatient treatment with Keflex. Admitted to continue serial examination, elevation, IV Clindamycin. He does not appear septic, and some of this issue is acute on subacute/chronic. Nevertheless he is understandably felt to be high risk for readmission at a later date much sicker if this is not addressed appropriately at this time. Case management consult placed on admission; he is a very pleasant and honest appearing liz, but currently apparently living in his car, and he forgets to take his medications on a regular basis. 2. CKD. He was given 1L NS in the ER, recheck BUN/SCr in the am. He may have a trace of prerenal azotemia at this time. 3. CAD. He is s/p CABG ~14 years ago, no active concerns here, he has stable LIU likely from deconditioning. 4. Obesity and deconditioning with BMI ~38 kg/m2. PT/OT. Lovenox for DVT PPx. 5. Rash on thighs. Somewhat difficult to see on telemed exam, but concern for bedbugs or scabies or similar infestation. Nursing was already aware; consider trial of treatment for this PTD. 6. BPH. Restart Flomax. 7. Further symptomatic, supportive, and diagnostic cares will be provided as the current workup, or changes in his clinical scenario, indicate. Plan of care was discussed with the patient with RN at the bedside and they expressed understanding and desire to proceed. This included a review of his desire to be "Full Code Status." Hospital Course Summary Disclaimer: The visit summary below is not to be considered part of the above Progress Note. <Javi Jones - Last Filed: 06/19/17 11:55> History of Present Illness Date: 06/19/17 [facility] Patient Stated Medical History Hypertension Yes Other Yes: left kidney mass Cellulitis Yes: current 06/18/17 Depression Yes Exam Vital Signs: Temperature 96.8 F 06/19/17 08:00 Pulse Rate 78 06/19/17 08:00 Respiratory Rate 16 06/19/17 08:00 Blood Pressure 126/69 06/19/17 08:00 Pulse Oximetry 93 06/19/17 08:00 Height/Weight/BMI: Height 5 ft 8 in Weight 113.6 kg Body Mass Index 37.9 Results - Labs CBC & Chem 7: 06/19/17 04:53 06/19/17 04:53 Assessment and Plan Assessment and Plan: Pt was seen and examined and history and physical exam are cosistent with above impression. Pt states he had been missing his other medications, due to ADD that he has "Really bad". Pt takes an SSRI for his and Lovaza. He is not on Adderall. On Physical exam Pt has bilateral lower extremity erythema, suggestive of superinfection over chronic lymphedema and onychomycosis. Labs reviewed no fever, no Blood cultures done yet. Plan 1) Continue antibiotics for Cellulitis 2) CKD - Appears to be stable. 3) CAD - Will check a baseline EKG. 4) Obesity and deconditioning - stable. 5) BPH - As above. 6) Full code. Hospital Course Summary Disclaimer: The visit summary below is not to be considered part of the above Progress Note.
[2017-06-19] MEDS: CLINDAMYCIN PB 600 MG/50 ML BAG IV SCH ×5 (04:25→19:31)
[2017-06-19] MEDS: SALINE FLUSH 10ml SYRINGE IVF PRN ×3 (05:24→20:27)
--- NOTE | 2017-06-19 08:27 | Ultrasound Report ---
Indication: swelling lower legs PROCEDURE: US venous doppler LE BI: Encounter: Initial Comparison: None Technique: Color Doppler duplex and grayscale sonographic imaging of both lower extremities was performed. Findings: There is no evidence for acute deep venous thrombosis in either thigh. Specifically, serial graded compression was performed from the inguinal ligament to the popliteal bifurcation, bilaterally, demonstrating appropriate compressibility of the deep venous system. In addition, color and pulsed Doppler demonstrate appropriate spontaneous flow, variation with respiration, and augmentation with calf compression. At the ankle, normal flow is identified in the posterior tibial veins; these vessels are also normal in caliber. Impression: No evidence of acute DVT in either lower limb. There is a preliminary report by virtual radiologic. .
[2017-06-19] MEDS: OMEGA-3 ACID ESTERS 1 GM CAPSULE PO SCH (09:55)
[2017-06-19] MEDS: ASPIRIN *EC* 81 MG TABLET PO SCH (09:55)
[2017-06-19] MEDS: CITALOPRAM 20 MG TABLET PO SCH (09:56)
[2017-06-19] MEDS: ENOXAPARIN 40 MG/0.4 ML INJECTION SQ SCH (09:56)
[2017-06-19] MEDS: ATENOLOL 25 MG TABLET PO SCH (09:56)
[2017-06-19] MEDS: CALCIUM POLYCARBOPHIL 625 MG TABLET PO SCH (14:05)
[2017-06-19] MEDS: ZINC PO SCH (14:06)
[2017-06-19] MEDS: STRESS FORMULA PO SCH (14:06)
[2017-06-19] MEDS: LOVASTATIN 40 MG TABLET PO SCH (20:27)
[2017-06-20] MEDS: CLINDAMYCIN PB 600 MG/50 ML BAG IV SCH ×4 (01:06→20:20)
[2017-06-20] MEDS: NS FLUSH BAG 500ml IV PRN (01:06)
[2017-06-20] MEDS: SALINE FLUSH 10ml SYRINGE IVF PRN ×4 (01:07→20:21)
[2017-06-20] MEDS: CALCIUM POLYCARBOPHIL 625 MG TABLET PO SCH (09:34)
[2017-06-20] MEDS: ZINC PO SCH (09:34)
[2017-06-20] MEDS: ATENOLOL 25 MG TABLET PO SCH (09:34)
[2017-06-20] MEDS: STRESS FORMULA PO SCH (09:34)
[2017-06-20] MEDS: ASPIRIN *EC* 81 MG TABLET PO SCH (09:34)
[2017-06-20] MEDS: CITALOPRAM 20 MG TABLET PO SCH (09:34)
[2017-06-20] MEDS: ENOXAPARIN 40 MG/0.4 ML INJECTION SQ SCH (09:35)
[2017-06-20] MEDS: OMEGA-3 ACID ESTERS 1 GM CAPSULE PO SCH (09:35)
--- NOTE | 2017-06-20 11:17 | Progress Note ---
Subjective: Pt reports feeling well, denies any malaise or discomfort. Objective Vital signs: Temperature 96.9 F 06/20/17 07:51 Pulse Rate 69 06/20/17 07:51 Respiratory Rate 20 06/20/17 07:51 Blood Pressure 110/49 06/20/17 07:51 Pulse Oximetry 95 06/20/17 07:51 Rhythm: Normal Sinus Rhythm Height/Weight/BMI: Height 5 ft 8 in Weight 113.2 kg Body Mass Index 37.9 - Constitutional Present: no acute distress - Routine HEENT Exam Head: Present: normocephalic, atraumatic Eye: Present: EOMI, PERRL - Routine Respiratory Exam Present: CTA bilaterally - Routine Cardiovascular Exam Present: RRR - Routine Abdominal Exam Present: soft, non distended, non tender - Routine Extremities Exam Present: edema. Absent: cyanosis, clubbing Comments: Pt has bilateral erythema, that is about the same as yesterday C/W cellulitis. Also has onychomycosis - Routine Skin Exam Present: erythema - Routine Neurological Exam Present: alert, oriented X3, CN II-XII intact - Routine Psychiatric Exam Present: normal affect, cooperative Results - Labs CBC & Chem 7: 06/20/17 09:44 06/20/17 09:44 Assessment and Plan Assessment and Plan: 1) Cellulitis of the lower extremities (Bilateral) superimposed on chronic lymphedema and onychomycosis. - Add vancomicyn - Get blood cultures x 2 now - Stop Clindamicyn 2) CKD - Appears to be stable. - Start Vanco - with kinetics consult. 3) CAD - - Baseline EKG showed a first degree AVB with a MA of 260 msec and inverted T waves in V5 and V6 4) Obesity and deconditioning 5) BPH 6) Full code. Prevention Lovenox PPI - Time spent with patient 25 - 35 minutes Sepsis Assessment - Evaluation Sepsis screening result: No Definite Risk Hospital Course Summary Disclaimer: The visit summary below is not to be considered part of the above Progress Note.
--- NOTE | 2017-06-20 13:47 | Pharmacy Consult-Antibiotics ---
Pharmacy Consult-Vancomycin - Laboratory Information WBC 6.6 T/MM3 (4.5-11.0) 06/20/17 09:44 BUN 22.0 MG/DL (9-20) H 06/20/17 09:44 Creatinine 1.4 MG/DL (0.8-1.5) 06/20/17 09:44 - Consult Information Vancomycin consult noted by Dr Jones for Mr Ocampo, who is 77 yo and weighs 113kg. He has cellulitis. His serum creatinine is 1.4 mg/dl. Will give a loading dose of 2000mg vancomycin and follow that 8 hours later with vancomycin 1500mg IV q18h. Will continue to monitor. Thank you.
[2017-06-20] MEDS: LORATADINE 10 MG TABLET PO SCH (17:41)
[2017-06-20] MEDS: OMEPRAZOLE 20 MG CAPSULE PO SCH (17:41)
[2017-06-20] MEDS: LOVASTATIN 40 MG TABLET PO SCH (20:21)
[2017-06-21] MEDS: CLINDAMYCIN PB 600 MG/50 ML BAG IV SCH ×2 (00:47→17:07)
[2017-06-21] MEDS: LORATADINE 10 MG TABLET PO SCH (05:45)
[2017-06-21] MEDS: OMEPRAZOLE 20 MG CAPSULE PO SCH ×2 (05:45→17:17)
[2017-06-21] MEDS: CALCIUM POLYCARBOPHIL 625 MG TABLET PO SCH (10:31)
[2017-06-21] MEDS: ZINC PO SCH (10:32)
[2017-06-21] MEDS: STRESS FORMULA PO SCH (10:32)
[2017-06-21] MEDS: OMEGA-3 ACID ESTERS 1 GM CAPSULE PO SCH (10:32)
[2017-06-21] MEDS: ATENOLOL 25 MG TABLET PO SCH (10:32)
[2017-06-21] MEDS: CITALOPRAM 20 MG TABLET PO SCH (10:32)
[2017-06-21] MEDS: ASPIRIN *EC* 81 MG TABLET PO SCH (10:32)
[2017-06-21] MEDS: ENOXAPARIN 40 MG/0.4 ML INJECTION SQ SCH (10:33)
--- NOTE | 2017-06-21 12:09 | Progress Note ---
Subjective: Pt has no complaints today. Objective Vital signs: Temperature 96.4 F L 06/21/17 07:00 Pulse Rate 63 06/21/17 07:00 Respiratory Rate 16 06/21/17 07:00 Blood Pressure 136/67 06/21/17 07:00 Pulse Oximetry 95 06/21/17 07:00 Rhythm: Normal Sinus Rhythm Height/Weight/BMI: Height 5 ft 8 in Weight 113.8 kg Body Mass Index 37.9 - Constitutional Present: no acute distress - Routine HEENT Exam Head: Present: normocephalic, atraumatic Eye: Present: EOMI, PERRL - Routine Respiratory Exam Present: CTA bilaterally - Routine Cardiovascular Exam Present: RRR, S1, S2 - Routine Abdominal Exam Present: soft, non distended, non tender - Routine Extremities Exam Present: edema. Absent: cyanosis, clubbing - Routine Skin Exam Comments: Pt has a rash on his lower extremities of multiple erythematous macules which are very small and also some petechiae. This has not improved since yesterday - Routine Neurological Exam Present: alert, oriented X3, CN II-XII intact - Routine Psychiatric Exam Present: normal affect, cooperative Results - Labs CBC & Chem 7: 06/20/17 09:44 06/20/17 09:44 Microbiology Results: Microbiology 06/20/17 11:23 Peripheral/Iv Start Blood Culture - Preliminary No Growth After 1 Day 06/20/17 11:26 Peripheral/Iv Start Blood Culture - Preliminary No Growth After 1 Day Assessment and Plan DVT Prophylaxis: Lovenox GI Prophylaxis: other Resuscitation Status: Full Code Assessment and Plan: Summary - Renato is a 77 YO male that came with what seems to be bilateral lower extremity cellulitis. He apparently has a home which is full of stuff and he can not live there anymore. He recently moved to his car that is also full of stuff. He will need to go to a [facility] or [facility] to complete antibiotics once we see a response. 1) Cellulitis of the lower extremities (Bilateral) superimposed on chronic lymphedema and onychomycosis. His antibiotic was changed from Clindamicyn to Vanco on 06/20. - No change on the rash - not better not worse - Get blood cultures x 2 now - Stop Clindamicyn 2) CKD - Appears to be stable. . 3) CAD - - Baseline EKG showed a first degree AVB with a AK of 260 msec and inverted T waves in V5 and V6 - Not sure if pt has orthopnea since he has been sleeping in his car. No reports of orthopnea here. - Check nocturnal saturation study. 4) Obesity and deconditioning 5) BPH 6) Full code. Prevention Lovenox PPI - Time spent with patient 25 - 35 minutes Sepsis Assessment - Evaluation Sepsis screening result: No Definite Risk Hospital Course Summary Disclaimer: The visit summary below is not to be considered part of the above Progress Note.
[2017-06-21] MEDS ORDERED: DiphenhydrAMINE 25 MG CAPSULE PO ONE (13:13)
[2017-06-21] MEDS: LOVASTATIN 40 MG TABLET PO SCH (21:07)
[2017-06-21] MEDS ORDERED: CETIRIZINE 10 MG TABLET PO ONE (21:19)
[2017-06-22] MEDS: OMEPRAZOLE 20 MG CAPSULE PO SCH ×2 (07:29→17:03)
[2017-06-22] MEDS: LORATADINE 10 MG TABLET PO SCH (07:29)
--- NOTE | 2017-06-22 09:43 | Pharmacy Consult-Antibiotics ---
Pharmacy Consult-Vancomycin - Laboratory Information WBC 7.2 T/MM3 (4.5-11.0) 06/22/17 07:39 BUN 24.0 MG/DL (9-20) H 06/22/17 07:39 Creatinine 1.4 MG/DL (0.8-1.5) 06/22/17 07:39 Vancomycin Trough 16.38 UG/ML (15-20) 06/22/17 07:39 - Consult Information VANCOMYCIN CONSULT: Vancomycin Trough = 16.4 mcg/ml. Today's SCr = 1.4 mg/dl. Will continue Vancomycin 1,500 mg IV q18hrs. Will continue to monitor and make adjustments accordingly. Thank you.
[2017-06-22] MEDS: ENOXAPARIN 40 MG/0.4 ML INJECTION SQ SCH (09:44)
[2017-06-22] MEDS: ATENOLOL 25 MG TABLET PO SCH (09:44)
[2017-06-22] MEDS: ASPIRIN *EC* 81 MG TABLET PO SCH (09:45)
[2017-06-22] MEDS: ZINC PO SCH (09:45)
[2017-06-22] MEDS: CITALOPRAM 20 MG TABLET PO SCH (09:45)
[2017-06-22] MEDS: CALCIUM POLYCARBOPHIL 625 MG TABLET PO SCH (09:45)
[2017-06-22] MEDS: OMEGA-3 ACID ESTERS 1 GM CAPSULE PO SCH (09:45)
[2017-06-22] MEDS: STRESS FORMULA PO SCH (09:45)
--- NOTE | 2017-06-22 17:01 | Progress Note ---
Subjective: Pt appears to be doing fairly well. Denies any fever or chills. Today his lower extremity rash is a bit less "Bright red" colored. Objective Vital signs: Temperature 98.4 F 06/22/17 15:00 Pulse Rate 65 06/22/17 15:00 Respiratory Rate 18 06/22/17 15:00 Blood Pressure 134/64 06/22/17 15:00 Pulse Oximetry 95 06/22/17 15:00 Rhythm: Normal Sinus Rhythm Height/Weight/BMI: Height 5 ft 8 in Weight 113.852 kg Body Mass Index 37.9 - Constitutional Present: no acute distress - Routine HEENT Exam Head: Present: normocephalic, atraumatic Eye: Present: EOMI, PERRL - Routine Cardiovascular Exam Present: RRR - Routine Abdominal Exam Present: soft, non distended, non tender - Routine Extremities Exam Present: edema Comments: Pt has a rash on both extremities distally. The rash has 2 components - one is erythema (Clears with pressure) the second one appears to be petechial (does not clear with pressure). hyperthermia on his legs has decreased as well as his edema. - Routine Musculoskeletal Exam Musculoskeletal: Present: no clubbing or cyanosis - Routine Skin Exam Present: erythema, petechiae - Routine Neurological Exam Present: alert, oriented X3 - Routine Psychiatric Exam Present: normal affect, cooperative Results - Labs CBC & Chem 7: 06/22/17 07:39 06/22/17 07:39 Microbiology Results: Microbiology 06/20/17 11:23 Peripheral/Iv Start Blood Culture - Preliminary No Growth After 2 Days 06/20/17 11:26 Peripheral/Iv Start Blood Culture - Preliminary No Growth After 2 Days Assessment and Plan DVT Prophylaxis: Lovenox GI Prophylaxis: other Resuscitation Status: Full Code Assessment and Plan: Summary - Renato is a 77 YO male that came with what seems to be bilateral lower extremity cellulitis. He apparently has a home which is full of stuff and he can not live there anymore. He recently moved to his car that is also full of stuff. He will need to go to a [facility] or [facility] to complete antibiotics once we see a response. 1) Cellulitis of the lower extremities (Bilateral) superimposed on chronic lymphedema and onychomycosis. His antibiotic was changed from Clindamicyn to Vanco on 06/20. His erythema is a bit less "Angry" today (06/22). - Rash a bit less hyperemic today. - Blood cultures x 2 negative, but were NOT done prior to starting antibiotics. - On admisison there was a mention of pt having scabies. Pt has eosinophilia today - this has been trending up. He is not itching on his area of rash. - Nystatin to groin rash. 2) CKD - Appears to be stable. - BUN/Cr today 1.4/24 . 3) CAD - no CP. - Baseline EKG showed a first degree AVB with a IA of 260 msec and inverted T waves in V5 and V6 - Not sure if pt has orthopnea since he has been sleeping in his car. No reports of orthopnea here. 4) Obesity and deconditioning 5) BPH - stable 6) Complicating social factors - Pt has been living in a car, due to his home and RV being full of his "Stuff" . Not sure what intervention can be done to assist. This can complicate his D/C process. Pt is a Full code. Prevention Lovenox PPI - Time spent with patient 25 - 35 minutes Sepsis Assessment - Evaluation Sepsis screening result: No Definite Risk Hospital Course Summary Disclaimer: The visit summary below is not to be considered part of the above Progress Note.
[2017-06-22] MEDS: LOVASTATIN 40 MG TABLET PO SCH (20:51)
[2017-06-23] MEDS: NS FLUSH BAG 500ml IV PRN (01:59)
[2017-06-23] MEDS: OMEPRAZOLE 20 MG CAPSULE PO SCH (05:50)
[2017-06-23] MEDS: LORATADINE 10 MG TABLET PO SCH (05:50)
[2017-06-23] MEDS: ZINC PO SCH (09:44)
[2017-06-23] MEDS: OMEGA-3 ACID ESTERS 1 GM CAPSULE PO SCH (09:44)
[2017-06-23] MEDS: STRESS FORMULA PO SCH (09:44)
[2017-06-23] MEDS: ATENOLOL 25 MG TABLET PO SCH (09:44)
[2017-06-23] MEDS: CITALOPRAM 20 MG TABLET PO SCH (09:44)
[2017-06-23] MEDS: CALCIUM POLYCARBOPHIL 625 MG TABLET PO SCH (09:45)
[2017-06-23] MEDS: ENOXAPARIN 40 MG/0.4 ML INJECTION SQ SCH (09:45)
[2017-06-23] MEDS: ASPIRIN *EC* 81 MG TABLET PO SCH (09:45)
[2017-06-23] MEDS: HYDROCORTISONE 1% CREAM 28.35gm TOP PRN ×2 (09:58→21:04)
[2017-06-23] MEDS ORDERED: CEFTRIAXONE 1 G in NS 100 ML IV SCH (14:00)
--- NOTE | 2017-06-23 14:08 | Progress Note ---
<Bridgette Galvin - Last Filed: 06/23/17 14:03> Subjective: Renato is seen today in follow up. He is very involved in ordering his meals. He defers interacting in his exam in torres of ordering a large amount of food. He is noted to have several piles of food covering his bedside table. He does report that he feels his legs look "no better" today. Chart is reviewed at length. Case management notes reviewed. Patient has a home, a 5th wheel and two storage sheds full of belongings. He has been living in his car. He is not willing to consider a new apartment. Does not want his belongings to be cleaned out w/o him being present. Not willing to go to homeless alf. SNU may not be an option as he is more ambulatory. He does see a provider at [facility] [place], but no therapist. Objective Vital signs: Temperature 96.1 F L 06/23/17 08:05 Pulse Rate 70 06/23/17 08:05 Respiratory Rate 18 06/23/17 08:05 Blood Pressure 133/67 06/23/17 08:05 Pulse Oximetry 93 06/23/17 08:05 Rhythm: Normal Sinus Rhythm Height/Weight/BMI: Height 1.73 m Weight 113.9 kg Body Mass Index 37.9 - Constitutional Present: no acute distress, well nourished, well developed, cooperative - Routine HEENT Exam Head: Present: normocephalic, atraumatic Eye: Present: EOMI, PERRL ENT: Present: mucous membranes moist - Routine Respiratory Exam Present: CTA bilaterally. Absent: rhonchi, stridor, wheezes, crackles - Routine Cardiovascular Exam Present: RRR, S1, S2, no murmur - Routine Abdominal Exam Present: soft, non distended, non tender - Routine Extremities Exam Present: edema (Trace LE) Comments: Significant redness/purple discoloration on bilateral legs. Left > right. mild edema. Appears c/w strep cellulitis. - Routine Back/Spine/Pelvis Exam Back/Spine: Present: full ROM - Routine Skin Exam Present: intact, warm, rash Comments: See above. - Routine Neurological Exam Present: alert, moving all extremities - Routine Psychiatric Exam Present: cooperative. Absent: good insight, good judgment Results - Labs CBC & Chem 7: 06/22/17 07:39 06/22/17 07:39 Microbiology Results: Microbiology 06/20/17 11:23 Peripheral/Iv Start Blood Culture - Preliminary No Growth After 3 Days 06/20/17 11:26 Peripheral/Iv Start Blood Culture - Preliminary No Growth After 3 Days - Impressions Venous doppler Impression: No evidence of acute DVT in either lower limb. There is a preliminary report by virtual radiologic. Assessment and Plan (1) Lower extremity cellulitis Current visit: Yes Status: Acute DVT Prophylaxis: Lovenox GI Prophylaxis: other (DC PPI) Resuscitation Status: Full Code Assessment and Plan: Assessment: 1. Bilateral LE Cellulitis 2. Atypical skin rash, R/O Scabies 3. HTN 4. HLD 5. Self care deficit 6. Hoarding, extreme 7. Risk for total self care failure 8. Recurrent dental infections with hx of implants 9. concern for cognitive decline Plan: 06/23/17 *Patient was previously on Clinda, changed to Vanco. No significant improvement on either. Continue Vanco, add Ceftriaxone. Rash appearance c/w strep infection. If no improvement, consider ID consult next week. Will obtain scabies scraping due to living situation. Will empirically treat with permethrin cream. *Continue ASA, Statin. *SW/CM following for possible placement. I am strongly concerned that patient is at risk for self care deficit. Will place psych consult for cognitive/competency eval. He will need SW to complete APS report on Saturday. May need NH placement if he is not competent. *Hx of dental infections- May need to consider further imaging if recurrent infections reported. Continue LMWH for px. DC PPI. No evidence of need at this time. - Time spent with patient 25 - 35 minutes Sepsis Assessment - Evaluation Sepsis screening result: No Definite Risk Hospital Course Summary Disclaimer: The visit summary below is not to be considered part of the above Progress Note. Hospital Course: 06/23/17 14:16 Summary - Renato is a 77 YO male that came with what seems to be bilateral lower extremity cellulitis. He apparently has a home which is full of stuff and he can not live there anymore. He recently moved to his car that is also full of stuff. He will need to go to a [facility] or [facility] to complete antibiotics once we see a response. 1) Cellulitis of the lower extremities (Bilateral) superimposed on chronic lymphedema and onychomycosis. His antibiotic was changed from Clindamicyn to Vanco on 06/20. His erythema is a bit less "Angry" today (06/22). - Rash a bit less hyperemic today. - Blood cultures x 2 negative, but were NOT done prior to starting antibiotics. - On admisison there was a mention of pt having scabies. Pt has eosinophilia today - this has been trending up. He is not itching on his area of rash. - Nystatin to groin rash. 2) CKD - Appears to be stable. - BUN/Cr today 1.01/28 3) CAD - no CP. - Baseline EKG showed a first degree AVB with a SC of 260 msec and inverted T waves in V5 and V6 - Not sure if pt has orthopnea since he has been sleeping in his car. No reports of orthopnea here. 4) Obesity and deconditioning 5) BPH - stable 6) Complicating social factors - Pt has been living in a car, due to his home and RV being full of his "Stuff" . Not sure what intervention can be done to assist. This can complicate his D/C process. Pt is a Full code. Prevention Lovenox PPI 06/23/17 14:25 Assessment: 1. Bilateral LE Cellulitis 2. Atypical skin rash, R/O Scabies 3. HTN 4. HLD 5. Self care deficit 6. Hoarding, extreme 7. Risk for total self care failure 8. Recurrent dental infections with hx of implants 9. concern for cognitive decline Plan: 06/23/17 *Patient was previously on Clinda, changed to Vanco. No significant improvement on either. Continue Vanco, add Ceftriaxone. Rash appearance c/w strep infection. If no improvement, consider ID consult next week. Will obtain scabies scraping due to living situation. Will empirically treat with permethrin cream. *Continue ASA, Statin. *SW/CM following for possible placement. I am strongly concerned that patient is at risk for self care deficit. Will place psych consult for cognitive/competency eval. He will need SW to complete APS report on Saturday. May need NH placement if he is not competent. *Hx of dental infections- May need to consider further imaging if recurrent infections reported. Continue LMWH for px. DC PPI. No evidence of need at this time. <Dulce Lambert - Last Filed: 06/23/17 17:35> Objective Vital signs: Temperature 95.9 F L 06/23/17 15:54 Pulse Rate 67 06/23/17 15:54 Respiratory Rate 20 06/23/17 15:54 Blood Pressure 150/67 H 06/23/17 15:54 Pulse Oximetry 95 06/23/17 15:54 Height/Weight/BMI: Height 1.73 m Weight 113.9 kg Body Mass Index 37.9 Results - Labs CBC & Chem 7: 06/22/17 07:39 06/22/17 07:39 Microbiology Results: Microbiology 06/20/17 11:23 Peripheral/Iv Start Blood Culture - Preliminary No Growth After 3 Days 06/20/17 11:26 Peripheral/Iv Start Blood Culture - Preliminary No Growth After 3 Days Assessment and Plan (1) Lower extremity cellulitis Current visit: Yes Status: Acute Assessment and Plan: I have independently evaluated and examined this patient. I reviewed the chart, the patient's history, and the TRAFFIC SURVEY TECHNICIAN/PA's documented findings as above. We discussed and formulated the assessment and plan as above with additions as below: Mr. Ocampo reported that his legs are doing well and that he has increased itching in his feet in addition to more proximal legs today. He described increased erythema above his knees today and that he always has trouble with itching and "spots"on his thighs and lower back. He expressed concern about risk of necrosis in his toes (no indication of this) and renal failure. NAD, talkative Respirations nonlabored, good airflow, breath sounds clear Regular rhythm Lower extremity with extensive erythematous petechial rash extending above the knees with some areas of confluence on the calves; multiple small scabbed areas on the lateral proximal thighs extending to the low back. +2 bilateral lower extremity edema. Feet are warm bilaterally and dorsalis pedis pulses palpable. Remains afebrile, white count normal; blood cultures negative after 3 days. Patient clearly has rash on his lower extremities which is getting worse on antibiotics by patient report. Bilateral cellulitis is unlikely and appearance could reflect a vasculitis or drug eruption. CRP, PAUL, ESR to be obtained in the morning. Dr. Jones will return tomorrow and can compare rash to admission exam. Continue antibiotics at present. Patient reassured that blood flow to his lower extremities appears to be good and that renal function is stable. Hospital Course Summary Disclaimer: The visit summary below is not to be considered part of the above Progress Note.
[2017-06-23] MEDS: SALINE FLUSH 10ml SYRINGE IVF PRN (19:58)
[2017-06-23] MEDS: LOVASTATIN 40 MG TABLET PO SCH (20:01)
[2017-06-24] MEDS: HYDROCORTISONE 1% CREAM 28.35gm TOP PRN ×2 (00:02→15:55)
[2017-06-24] MEDS: LORATADINE 10 MG TABLET PO SCH (05:57)
[2017-06-24] MEDS: OMEGA-3 ACID ESTERS 1 GM CAPSULE PO SCH (09:41)
[2017-06-24] MEDS: ATENOLOL 25 MG TABLET PO SCH (09:41)
[2017-06-24] MEDS: CALCIUM POLYCARBOPHIL 625 MG TABLET PO SCH (09:41)
[2017-06-24] MEDS: ENOXAPARIN 40 MG/0.4 ML INJECTION SQ SCH (09:42)
[2017-06-24] MEDS: CITALOPRAM 20 MG TABLET PO SCH (09:42)
[2017-06-24] MEDS: ZINC PO SCH (09:42)
[2017-06-24] MEDS: STRESS FORMULA PO SCH (09:42)
[2017-06-24] MEDS: ASPIRIN *EC* 81 MG TABLET PO SCH (09:42)
--- NOTE | 2017-06-24 10:18 | Infectious Disease Consult ---
Infectious Disease Consult Date of Consultation: 06/24/17 Requesting Physician: Javi Jones Reason for Consultation: antibiotic recs History of Present Illness: Mr. Ocampo is a 77 y/o man who was admitted here on 06/18 with increased LE erythema and edema. He reports that he chronically has some LE erythema, but it was getting worse despite keflex. Per records, he has been living out of his car and not taking his medications regularly. Dopplers were negative for DVT on admission. He has not had fever. His WBC has been normal. Blood cultures on admission were negative. He has been on Vancomycin since 06/20. He received clindamycin 06/18-06/20 and he received ceftriaxone once on 06/18 and then it was restarted yesterday 06/23. He has also noted to be developing an eosinophilia. He does complain of itching. He thinks the redness near his feet is better, but on his legs, it seems worse. It's going up his medial legs and is on his R arm. Medications Home Medications Medication Instructions Recorded Confirmed Type Vitamin B Complex [Balanced B-50] 1 tab PO DAILY #0 11/24/11 06/18/17 History Atenolol 25 mg PO DAILY #0 03/07/12 06/18/17 History Aspirin [Adult Low Dose Aspirin EC] 81 mg PO DAILY 06/18/17 06/18/17 History Calcium Polycarbophil [Fiber] 1,250 mg PO DAILY 06/18/17 06/18/17 History Citalopram [Celexa] 20 mg PO DAILY 06/18/17 06/18/17 History Lovastatin [Mevacor] 40 mg PO DAILY 06/18/17 06/18/17 History Rice-3 Acid Ethyl Esters [Lovaza] 2 gm PO DAILY 06/18/17 06/18/17 History cephALEXin [Cephalexin] 500 mg PO TID 06/18/17 06/18/17 History Fluticasone/Salmeterol 500/50 1 puff PO DAILY 06/21/17 06/21/17 History [Advair 500-50Diskus] Furosemide 20 mg PO DAILY 06/21/17 06/21/17 History Allergies Allergy/AdvReac Type Severity Reaction Status Date / Time decongestant AdvReac Uncoded 06/18/17 17:13 PFS Patient Stated Medical History Hypertension Yes Other Yes: left kidney mass Cellulitis Yes: current 06/18/17 Depression Yes Surgical History: CABG 2013 Family History: reviewed and noncontributory - Social History Smoking status: Never smoker Housing: other (has been living in his car) Review of Systems Comprehensive ROS: completed and no additional positive findings except those as stated - Constitutional Constitutional: Absent: chills, fever(s) - Cardiovascular Cardiovascular: Absent: chest pain Vascular: Present: pedal edema, varicosities (Chronic ) - Respiratory Respiratory: Absent: dyspnea - Gastrointestinal Gastrointestinal: Absent: diarrhea, nausea, vomiting - Genitourinary Genitourinary: Present: difficulty urinating (Chronic with known BPH, off flomax and proscar), urinary frequency - Integumentary/Breasts Integumentary: Present: pruritus, rash (LEs, some on torso and RUE) - Psychiatric Psychiatric Comments: ADD per history, also has features of hoarding per records Exam Vital Signs: Temperature 96.9 F 06/24/17 07:50 Pulse Rate 70 06/24/17 07:50 Respiratory Rate 18 06/24/17 07:50 Blood Pressure 151/71 H 06/24/17 07:50 Pulse Oximetry 94 06/24/17 07:50 Height/Weight/BMI: Height 1.73 m Weight 114.7 kg Body Mass Index 37.9 - Constitutional Present: no acute distress, well nourished, well developed - Routine HEENT Exam Head: Present: normocephalic, atraumatic Eye: Present: EOMI, PERRL ENT: Present: mucous membranes moist - Routine Neck Exam Present: supple - Routine Respiratory Exam Present: CTA bilaterally - Routine Cardiovascular Exam Present: RRR. Absent: murmur - Routine Abdominal Exam Present: soft, normoactive bowel sounds, non distended, non tender - Routine Extremities Exam Present: edema (1-2+ LEs bilaterally). Absent: cyanosis, clubbing - Routine Skin Exam Present: rash (LEs that is petechial laterally, but medially seems more confluent. Medial thighs have the appearance of a maculopapular rash. He also has a maculopapular rash on flanks and lateral RUE. Peeling skin near toes consistent with tinea) Comments: onychomycosis of toenails - Routine Neurological Exam Present: alert, CN II-XII intact. Absent: motor deficit - Routine Psychiatric Exam Present: normal affect Results - Labs CBC & Chem 7: 06/24/17 04:05 06/24/17 04:05 Microbiology Results: Microbiology 06/20/17 11:23 Peripheral/Iv Start Blood Culture - Preliminary No Growth After 3 Days 06/20/17 11:26 Peripheral/Iv Start Blood Culture - Preliminary No Growth After 3 Days Impression: Drug rash involving LEs, etiology not clear but could be related to cephalosporins, less likely Vancomycin or clinda LE edema Peipheral eosinophilia Pruritis ADD CAD s/p CABG Hoarding and difficult social situation Recommendation: Recommend stopping current antibiotics, and elevating LEs at or above heart level. I would also recommend diuresis. I would try doxycycline in case there is still an element of cellulitis involving the LEs. Topical antifungal cream to feet BID. Sepsis Assessment - Evaluation Sepsis screening result: No Definite Risk
--- NOTE | 2017-06-24 15:59 | Progress Note ---
Subjective: Pt states he is feeling fine, except his legs are itching a lot. He states he was itching a lot prior to admission - then when he was admittted his itching went away and then after Vancomicyn the itching came back. He has developed eosinophilia. Objective Vital signs: Temperature 96.9 F 06/24/17 07:50 Pulse Rate 70 06/24/17 07:50 Respiratory Rate 18 06/24/17 07:50 Blood Pressure 151/71 H 06/24/17 07:50 Pulse Oximetry 94 06/24/17 07:50 Rhythm: First Degree AV-Block Height/Weight/BMI: Height 5 ft 8 in Weight 114.7 kg Body Mass Index 37.9 - Constitutional Present: no acute distress - Routine HEENT Exam Head: Present: normocephalic, atraumatic Eye: Present: EOMI, PERRL - Routine Respiratory Exam Present: CTA bilaterally - Routine Cardiovascular Exam Present: RRR, S1, S2 - Routine Abdominal Exam Present: soft - Routine Extremities Exam Present: edema. Absent: cyanosis, clubbing Comments: Erythma mixed with a petechial rash on both lower extremities, that is unchanged after the use of IV antibiotics. - Routine Skin Exam Present: rash - Routine Neurological Exam Present: alert, oriented X3, CN II-XII intact - Routine Psychiatric Exam Present: normal affect, cooperative Results - Labs CBC & Chem 7: 06/24/17 04:05 06/24/17 04:05 Microbiology Results: Microbiology 06/20/17 11:23 Peripheral/Iv Start Blood Culture - Preliminary No Growth After 4 Days 06/20/17 11:26 Peripheral/Iv Start Blood Culture - Preliminary No Growth After 4 Days Assessment and Plan (1) Lower extremity cellulitis Current visit: Yes Status: Acute DVT Prophylaxis: other GI Prophylaxis: other Resuscitation Status: Full Code Assessment and Plan: Summary - Renato is a 77 YO male that was admitted with an erythematous rash of both lower extremities distallly and was thought to have cellulitis, however he has not responded to IV antibiotics. He was seen by Dr Watts (Staff ID specialist) who thought this could be a drug reaction. A prep for scabies was ordered. A review of his meds showed that his beta hernandez could be associated with this kind of rash. The only way to confirm would be to stop this medication. DIANGOSIS - 1) Cellulitis of the lower extremities (Bilateral) superimposed on chronic lymphedema and onychomycosis. His antibiotic was changed from Clindamicyn to Vanco on 06/20. His erythema is a bit less "Angry" today (06/22). - No change in rash - due to BB ? - Pt has a first degree AVB, not sure the indication for BB - > change to Norvasc. - Per uptodate - < 1% lupus like reaction - psoriasiform reaction - - Blood cultures x 2 negative, but were NOT done prior to starting antibiotics. 2) CKD - Appears to be stable. - BUN/Cr today 1.01/29 . 3) CAD - no CP - Baseline EKG showed a first degree AVB with a GA of 260 msec and inverted T waves in V5 and V6 - Not sure if pt has orthopnea since he has been sleeping in his car. No reports of orthopnea here. - Check 2-D echo to check for indications for BB - Will stop Atenolol now and give Norvasc and observe. 4) Obesity and deconditioning 5) BPH - stable 6) Complicating social factors - Pt has been living in a car, due to his home and RV being full of his "Stuff" . Not sure what intervention can be done to assist. This can complicate his D/C process. Pt is a Full code. Prevention Lovenox PPI - Time spent with patient 25 - 35 minutes Sepsis Assessment - Evaluation Sepsis screening result: No Definite Risk Hospital Course Summary Disclaimer: The visit summary below is not to be considered part of the above Progress Note. Hospital Course: 06/23/17 14:16 Summary - Renato is a 77 YO male that came with what seems to be bilateral lower extremity cellulitis. He apparently has a home which is full of stuff and he can not live there anymore. He recently moved to his car that is also full of stuff. He will need to go to a [facility] or [facility] to complete antibiotics once we see a response. 1) Cellulitis of the lower extremities (Bilateral) superimposed on chronic lymphedema and onychomycosis. His antibiotic was changed from Clindamicyn to Vanco on 06/20. His erythema is a bit less "Angry" today (06/22). - Rash a bit less hyperemic today. - Blood cultures x 2 negative, but were NOT done prior to starting antibiotics. - On admisison there was a mention of pt having scabies. Pt has eosinophilia today - this has been trending up. He is not itching on his area of rash. - Nystatin to groin rash. 2) CKD - Appears to be stable. - BUN/Cr today 1.01/28 3) CAD - no CP. - Baseline EKG showed a first degree AVB with a GA of 260 msec and inverted T waves in V5 and V6 - Not sure if pt has orthopnea since he has been sleeping in his car. No reports of orthopnea here. 4) Obesity and deconditioning 5) BPH - stable 6) Complicating social factors - Pt has been living in a car, due to his home and RV being full of his "Stuff" . Not sure what intervention can be done to assist. This can complicate his D/C process. Pt is a Full code. Prevention Lovenox PPI 06/23/17 14:25 Assessment: 1. Bilateral LE Cellulitis 2. Atypical skin rash, R/O Scabies 3. HTN 4. HLD 5. Self care deficit 6. Hoarding, extreme 7. Risk for total self care failure 8. Recurrent dental infections with hx of implants 9. concern for cognitive decline Plan: 06/23/17 *Patient was previously on Clinda, changed to Vanco. No significant improvement on either. Continue Vanco, add Ceftriaxone. Rash appearance c/w strep infection. If no improvement, consider ID consult next week. Will obtain scabies scraping due to living situation. Will empirically treat with permethrin cream. *Continue ASA, Statin. *SW/CM following for possible placement. I am strongly concerned that patient is at risk for self care deficit. Will place psych consult for cognitive/competency eval. He will need SW to complete APS report on Saturday. May need NH placement if he is not competent. *Hx of dental infections- May need to consider further imaging if recurrent infections reported. Continue LMWH for px. DC PPI. No evidence of need at this time.
--- NOTE | 2017-06-24 20:47 | Neuropsychiatric Consult ---
[facility] Date: 06/25/17 Requesting Physician: Javi Jones Reason for Consultation: Capacity evaluation Start Time: 18:40 Stop Time: 19:20 History of Present Illness: Patient is a 77-year-old single, male being treated for cellulitis in lower extremities. Psychiatry was consulted for capacity evaluation as to whether patient can make his own medical decisions about treatment and discharge planning. Patient self-reports that he has a long history of ADD and OCD, and admits to hoarding as per other documentation. He is able to reason through diagnoses, recommended treatment and would like to follow doctor's recommendations in this regard. Patient is not wanting to go to a homeless longterm after discharge and this is where the question of capacity came in. He states that he would like to clean out his car as well as home, and obtain services to help him with this if possible. He would like to continue with psychiatric services if possible. He has been saving up money in order to pay for some assistance in doing the cleaning. If he were to go to the homeless longterm as recommended, they would reportedly require him to check in at 17:30 and he would not be able to work at his job as well as complete the other tasks above. He is able to provide logical reasoning behind of all of these decisions. I do not believe patient has any type of mental illness that is severe enough to impair his decision making at this time. Patient scored a 27/30 on his SLUMS and appears relatively cognitively intact. Patient denies any history of symptoms consistent with ngoc or psychosis. Patient denies any SI, HI or AVH. 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 Current residence: Homeless Social history: Reports he has lost several jobs due to ADD/OCD Review of Systems - Constitutional Constitutional: Present: as per HPI - Cardiovascular Vascular: Present: pedal edema, varicosities (Chronic ) - Genitourinary Genitourinary: Present: difficulty urinating (Chronic with known BPH, off flomax and proscar), urinary frequency - Psychiatric Psychiatric: Present: anxiety, difficulty concentrating Mental Status Exam Vitals: Last Vital Signs Temp 96.5 F L 06/24/17 17:57 Pulse 93 06/24/17 17:57 Resp 18 06/24/17 17:57 BP 79/51 06/24/17 17:57 Pulse Ox 98 06/24/17 17:57 Height: 1.73 m Weight: 113.7 kg - Mental Status Exam Muscle Strength/Tone: Normal Dressing: Casual Grooming: Fair Attitude: Cooperative Motor Activity: Normal Eye Contact: Good Speech: Normal Volume: Normal Rhythm: Appropriate Rhythm Orientation: Oriented X4 Mood: Anxious (mild) Affect: Anxious Rate of Thoughts: Appropriate Rate Thought Organization: Circumstantial Associations: Intact Abstract Reasoning: Poor abstract reasoning Computation: Intact Thought Content: Ruminations Perception/Psychotic: Perception Normal Language: Naming Intact Fund of Knowledge: Appropriate Memory: Grossly Intact Suicidal Ideation: Denies Homicidal Ideation: Denies Insight: Fair Judgement: Fair Impulse Control: Fair - Laboratory Result Diagrams: 06/25/17 04:44 06/25/17 04:44 Laboratory Results - last 24 hr 06/24/17 06/24/17 06/24/17 04:05 04:05 04:05 WBC 6.9 RBC 3.90 L Hgb 11.3 L Hct 35.3 L MCV 90.5 MCH 29.0 MCHC 32.0 RDW Std Deviation 45.3 Plt Count 139 MPV 9.4 Immature Gran % (Auto) 0.6 H Neut % (Auto) 63.9 Lymph % (Auto) 16.4 L [place] % (Auto) 9.0 Eos % (Auto) 9.8 H Baso % (Auto) 0.3 Neut # 4.4 Lymph # 1.1 [place] # 0.6 Eos # 0.7 H Baso # 0.0 Abs Immat Gran (auto) 0.04 H ESR 17 H Turbidity < 20 Sodium 140 Potassium 4.4 Chloride 108 H Carbon Dioxide 24 Anion Gap 8 BUN 25.0 H Creatinine 1.4 GFR Calculation 49 BUN/Creatinine Ratio 18 Glucose 150 H Calculated Osmolality 276 Calcium 9.0 Icterus Index < 2 C-Reactive Protein 9.6 H Specimen Hemolysis < 15 Assessment and Plan (1) Homelessness Current visit: Yes Status: Acute (2) Hoarding behavior Current visit: Yes Status: Acute (3) Obsessive compulsive disorder Qualifiers: Obsessive-compulsive disorder type: hoarding disorder Qualified Code(s): F42.3 - Hoarding disorder Current visit: Yes Status: Acute Patient DOES have capacity to make reasoned decisions in regards to healthcare and finances, and should be allowed to decide what he would like to do upon discharge. Will look into services available to help with hoarding behavior and agree with continuing with psychiatric services on an outpatient basis. Thank you for this consult - please contact me with further questions.
[2017-06-24] MEDS: LOVASTATIN 40 MG TABLET PO SCH (22:00)
[2017-06-24] MEDS: MICONAZOLE 2% TP SCH (22:00)
[2017-06-25] MEDS: HYDROCORTISONE 1% CREAM 28.35gm TOP PRN (00:12)
[2017-06-25] MEDS: LORATADINE 10 MG TABLET PO SCH (07:20)
[2017-06-25] MEDS: STRESS FORMULA PO SCH (09:15)
[2017-06-25] MEDS: CITALOPRAM 20 MG TABLET PO SCH (09:15)
[2017-06-25] MEDS: OMEGA-3 ACID ESTERS 1 GM CAPSULE PO SCH (09:15)
[2017-06-25] MEDS: ASPIRIN *EC* 81 MG TABLET PO SCH (09:15)
[2017-06-25] MEDS: ZINC PO SCH (09:15)
[2017-06-25] MEDS: ENOXAPARIN 40 MG/0.4 ML INJECTION SQ SCH (09:16)
[2017-06-25] MEDS: CALCIUM POLYCARBOPHIL 625 MG TABLET PO SCH (09:16)
[2017-06-25] MEDS: MICONAZOLE 2% TP SCH ×2 (10:48→21:09)
--- NOTE | 2017-06-25 12:43 | Echocardiogram ---
DATE OF PROCEDURE June 24, [address] Javi Jones This is a two-dimensional echo with spectral Doppler, color-flow and M-mode. Left atrium is dilated. Left ventricle end-diastolic dimension is normal. Left ventricle wall thickness is increased. LV systolic function is normal with ejection fraction of 60%. Right atrium is dilated. Right ventricle is normal. Aortic root dimension is normal. Mitral valve annulus is calcified. Mitral valve leaflets are normal with moderate mitral regurgitation. Aortic valve is a trileaflet structure with no stenosis. Mild aortic insufficiency is present. Tricuspid valve shows mild tricuspid regurgitation with moderate pulmonary hypertension with estimated pulmonary artery systolic pressure of 49. Pulmonary valve shows trace of pulmonary insufficiency. There is no pericardial effusion. IMPRESSION 1. Normal LV systolic function with ejection fraction of 60%. 2. Biatrial dilation. 3. Left ventricular hypertrophy. 4. Mitral annulus calcification with moderate mitral regurgitation. 5. Mild aortic insufficiency. 6. Mild tricuspid regurgitation with moderate pulmonary hypertension with estimated pulmonary artery systolic pressure of 49. 7. Trace of pulmonary insufficiency. MTDD
[2017-06-25] MEDS: AMLODIPINE 5 MG TABLET PO SCH (13:23)
--- NOTE | 2017-06-25 18:16 | Progress Note ---
Subjective: Pt states he is feeling worse with increased itching. His erythema looks worse. States he just remembered he was told he had a kidney mass - also states saw a baggage inspector years ago (for this rash) and was sent home with a cream called "Sarna" he used it for a long time with fair improvement of his symptoms. He signed a release for old records. Per the records I have, his PCP noticed this rash on 04/03/2017 and told him to use vaseline. He was recently found to have a renal mass (increasing in size) and had an abdominal U/S ordered (but he did not have it done). Also saw Dr Gomez for screening colonoscopy and was scheduled but did not have the colonoscopy yet. Called the lab several times as the scrapings for Scabies was reported as final but no result was available. Objective Vital signs: Temperature 96.2 F L 06/25/17 15:20 Pulse Rate 69 06/25/17 16:15 Respiratory Rate 16 06/25/17 15:20 Blood Pressure 145/70 H 06/25/17 15:20 Pulse Oximetry 96 06/25/17 15:20 Rhythm: First Degree AV-Block Height/Weight/BMI: Height 5 ft 8 in Weight 113.7 kg Body Mass Index 37.9 - Constitutional Present: no acute distress - Routine HEENT Exam Head: Present: normocephalic, atraumatic Eye: Present: EOMI, PERRL - Routine Cardiovascular Exam Present: RRR, S1, S2 - Routine Abdominal Exam Present: non tender, distended - Routine Extremities Exam Present: edema Comments: Pt has a rash on both lower extemities that extends from his feet above his knees. He also has parts of his back affected. The rash consists of petechiae, and areas of erythema. On his feet he has hyperkeratosis and what appears to be onychomycosis. - Routine Skin Exam Present: erythema - Routine Neurological Exam Present: alert, oriented X3, CN II-XII intact - Routine Psychiatric Exam Present: normal affect, cooperative Results - Labs CBC & Chem 7: 06/25/17 04:44 06/25/17 04:44 Microbiology Results: Microbiology 06/24/17 11:15 Skin Scraping - Final 06/20/17 11:23 Peripheral/Iv Start Blood Culture - Final No Growth After 5 Days 06/20/17 11:26 Peripheral/Iv Start Blood Culture - Final No Growth After 5 Days Assessment and Plan (1) Lower extremity cellulitis Current visit: Yes Status: Acute DVT Prophylaxis: Lovenox GI Prophylaxis: other Resuscitation Status: Full Code Assessment and Plan: Summary - Renato is a 77 YO male that was admitted with an erythematous rash of both lower extremities distallly and was thought to have cellulitis, superimposed on another chronic process (Rash had been there for > 2 months) however he has not responded to IV antibiotics. He was seen by Dr Watts (Staff ID specialist) who thought this could be a drug reaction or scabies. A prep for scabies was ordered and has not been resulted. A review of his meds showed that his beta hernandez could be associated with this kind of rash. His Labetalol was D/C on 06/24 and he was placed on telemetry (See below). He stated on 06/25 this rash had been there for a "Very long time" and he was seen by a baggage inspector for this in the past. He used a cream called "Sarna" for this with some improvement. He denies very having scabies. He also remembered he was diagnosed with a renal mass recently and was going to have an U/S. Records were requested and we have received a record of his renal mass - and a surgical evaluation for a surveillance colonoscopy. He does not recall the name of the Associate Team Physician he saw in the past. DIANGOSIS - 1) Erythematous rash of the lower extremities (Bilateral) superimposed on chronic lymphedema and onychomycosis. No reponse to Antibiotics ? of drug reaction ? Scabies ? Paraneoplastic (In view of renal mass). Increasing eosinophillia. - No change in rash - due to BB ? (Stopped on 06/24) - Per uptodate - < 1% lupus like reaction - psoriasiform reaction - with Labetalol. - PAUL negative - anti-histone done and PENDING. - Pt has a first degree AVB, not sure the indication for BB - > change to Norvasc (06/24) and placed on Telemetry - so far stable. - Pt has been developing Eosinophillia gradually - Absolute Eosinophil count today is 700. - Increasing eosinophilia, intense pruritus and lack of reponse to antibiotics suggest a possible drug reaction. - Will add Ivermectin and consider steroids (IV or PO). - If No response pt will need a skin biopsy. 2) CKD - Appears to be stable. Renal mass - had a retroperitoneal U/S ordered but not done. - BUN/Cr today .01/28 - Check renal U/S to evaluate for this mass. . 3) CAD - no CP Echocardiogram (Dr Pool - 06/24/2017) "............................... IMPRESSION 1. Normal LV systolic function with ejection fraction of 60%. 2. Biatrial dilation. 3. Left ventricular hypertrophy. 4. Mitral annulus calcification with moderate mitral regurgitation. 5. Mild aortic insufficiency. 6. Mild tricuspid regurgitation with moderate pulmonary hypertension with estimated pulmonary artery systolic pressure of 49. 7. Trace of pulmonary insufficiency. ............................................" - Baseline EKG showed a first degree AVB with a MD of 260 msec and inverted T waves in V5 and V6 - LVH could be due to HTN - No decreased LVEF, so Norvasc should be OK. 4) Obesity and deconditioning 5) BPH - stable 6) Complicating social factors - Pt has been living in a car, due to his home and RV being full of his "Stuff" . Not sure what intervention can be done to assist. This can complicate his D/C process. - Evaluated by Psychiatry - pt found to be competent. Pt is a Full code. Prevention Lovenox PPI - Time spent with patient 25 - 35 minutes Sepsis Assessment - Evaluation Sepsis screening result: No Definite Risk Hospital Course Summary Disclaimer: The visit summary below is not to be considered part of the above Progress Note. Hospital Course: 06/23/17 14:16 Summary - Renato is a 77 YO male that came with what seems to be bilateral lower extremity cellulitis. He apparently has a home which is full of stuff and he can not live there anymore. He recently moved to his car that is also full of stuff. He will need to go to a [facility] or SN to complete antibiotics once we see a response. 1) Cellulitis of the lower extremities (Bilateral) superimposed on chronic lymphedema and onychomycosis. His antibiotic was changed from Clindamicyn to Vanco on 06/20. His erythema is a bit less "Angry" today (06/22). - Rash a bit less hyperemic today. - Blood cultures x 2 negative, but were NOT done prior to starting antibiotics. - On admisison there was a mention of pt having scabies. Pt has eosinophilia today - this has been trending up. He is not itching on his area of rash. - Nystatin to groin rash. 2) CKD - Appears to be stable. - BUN/Cr today 1.01/28 3) CAD - no CP. - Baseline EKG showed a first degree AVB with a MD of 260 msec and inverted T waves in V5 and V6 - Not sure if pt has orthopnea since he has been sleeping in his car. No reports of orthopnea here. 4) Obesity and deconditioning 5) BPH - stable 6) Complicating social factors - Pt has been living in a car, due to his home and RV being full of his "Stuff" . Not sure what intervention can be done to assist. This can complicate his D/C process. Pt is a Full code. Prevention Lovenox PPI 06/23/17 14:25 Assessment: 1. Bilateral LE Cellulitis 2. Atypical skin rash, R/O Scabies 3. HTN 4. HLD 5. Self care deficit 6. Hoarding, extreme 7. Risk for total self care failure 8. Recurrent dental infections with hx of implants 9. concern for cognitive decline Plan: 06/23/17 *Patient was previously on Clinda, changed to Vanco. No significant improvement on either. Continue Vanco, add Ceftriaxone. Rash appearance c/w strep infection. If no improvement, consider ID consult next week. Will obtain scabies scraping due to living situation. Will empirically treat with permethrin cream. *Continue ASA, Statin. *SW/CM following for possible placement. I am strongly concerned that patient is at risk for self care deficit. Will place psych consult for cognitive/competency eval. He will need SW to complete APS report on Saturday. May need NH placement if he is not competent. *Hx of dental infections- May need to consider further imaging if recurrent infections reported. Continue LMWH for px. DC PPI. No evidence of need at this time.
[2017-06-25] MEDS ORDERED: IVERMECTIN 3 MG TABLET PO ONE (18:43)
[2017-06-25] MEDS: LOVASTATIN 40 MG TABLET PO SCH (21:08)
[2017-06-25] MEDS: SALINE FLUSH 10ml SYRINGE IVF PRN (21:08)
[2017-06-26] MEDS: LORATADINE 10 MG TABLET PO SCH (06:56)
[2017-06-26] MEDS: ZINC PO SCH (09:06)
[2017-06-26] MEDS: OMEGA-3 ACID ESTERS 1 GM CAPSULE PO SCH (09:06)
[2017-06-26] MEDS: CITALOPRAM 20 MG TABLET PO SCH (09:06)
[2017-06-26] MEDS: AMLODIPINE 5 MG TABLET PO SCH (09:06)
[2017-06-26] MEDS: ENOXAPARIN 40 MG/0.4 ML INJECTION SQ SCH (09:06)
[2017-06-26] MEDS: CALCIUM POLYCARBOPHIL 625 MG TABLET PO SCH (09:06)
[2017-06-26] MEDS: STRESS FORMULA PO SCH (09:06)
[2017-06-26] MEDS: ASPIRIN *EC* 81 MG TABLET PO SCH (09:06)
[2017-06-26] MEDS: MICONAZOLE 2% TP SCH ×2 (09:07→22:32)
--- NOTE | 2017-06-26 09:11 | Progress Note ---
Subjective Date: 06/26/17 Subjective: He reports that his legs are becoming more itchy. He's also noticed itchiness behind his ears and around his neck and face. He denies fever, N/V/D and denies much tenderness in his legs. He was treated with ivermectin yesterday. Exam Vital Signs: Temperature 96.5 F L 06/26/17 07:00 Pulse Rate 61 06/26/17 07:00 Respiratory Rate 18 06/26/17 07:00 Blood Pressure 137/66 06/26/17 07:00 Pulse Oximetry 95 06/26/17 07:00 Height/Weight/BMI: Height 1.73 m Weight 113.5 kg Body Mass Index 37.9 - Constitutional Present: well nourished, well developed - Routine HEENT Exam Head: Present: normocephalic, atraumatic Eye: Present: EOMI, PERRL ENT: Present: mucous membranes moist - Routine Neck Exam Present: supple - Routine Respiratory Exam Present: CTA bilaterally - Routine Cardiovascular Exam Present: RRR - Routine Abdominal Exam Present: soft, normoactive bowel sounds, non distended, non tender - Routine Extremities Exam Present: edema (1+ LEs). Absent: cyanosis, clubbing - Routine Skin Exam Present: intact, rash Comments: His LEs are solid red erythema without much warmth, and lateral LEs have a petechial-appearing rash. I can't see any significant rash on face/head or neck - Routine Neurological Exam Present: alert, oriented X3, CN II-XII intact - Routine Psychiatric Exam Present: normal affect Results - Labs CBC & Chem 7: 06/25/17 04:44 06/25/17 04:44 Microbiology Results: Microbiology 06/24/17 11:15 Skin Scraping - Final 06/20/17 11:23 Peripheral/Iv Start Blood Culture - Final No Growth After 5 Days 06/20/17 11:26 Peripheral/Iv Start Blood Culture - Final No Growth After 5 Days Impression: Drug rash vs non-infectious exanthem involving LEs, chronic LE edema Peipheral eosinophilia Pruritis ADD CAD s/p CABG Hoarding and difficult social situation Renal mass per history Recommendation: I don't think this rash represents an infectious etiology. Would d/c the doxycycline. Consider skin biopsy. Discussed with Dr. Jones. Sepsis Assessment - Evaluation Sepsis screening result: No Definite Risk
--- NOTE | 2017-06-26 10:23 | Ultrasound Report ---
Indication: renal mass - increasing size per recent CT PROCEDURE: US renal BI: Encounter: Initial Comparison: None Technique: Grayscale and color Doppler sonographic imaging of both kidneys was performed. FINDINGS: Both kidneys are present with normal cortical thickness and echogenicity. No evidence for collecting system dilatation, contour deforming mass, nephrolithiasis, or abnormal perinephric fluid collection. The right kidney measures 12 cm in length, and the left kidney measures 13 cm in length. 1.4 cm right renal cyst superiorly. Bilobed or septated cyst in the left kidney measuring 2.3 x 2.4 x 2.1 cm in size. No obvious renal mass. IMPRESSION: No hydronephrosis. No obvious renal mass seen by ultrasound. If there is clinical concern for a mass, renal mass protocol CT or contrast enhanced abdominal MRI is recommended for more detailed evaluation. There is a preliminary report by [employer]. .
--- NOTE | 2017-06-26 16:37 | Progress Note ---
Subjective: Pt is about the same, still with itching and redness of his legs. Received ivermectin yesterday. Awaiting records from Dr Del Toro (Deramtologist) pt states has never had a biopsy in the past and rash has been there apparently for years and this time has been there since late March. Objective Vital signs: Temperature 95.9 F L 06/26/17 15:59 Pulse Rate 70 06/26/17 15:59 Respiratory Rate 20 06/26/17 15:59 Blood Pressure 151/69 H 06/26/17 15:59 Pulse Oximetry 96 06/26/17 15:59 Rhythm: First Degree AV-Block Height/Weight/BMI: Height 5 ft 8 in Weight 113.5 kg Body Mass Index 37.9 - Constitutional Present: no acute distress - Routine HEENT Exam Head: Present: normocephalic, atraumatic Eye: Present: EOMI, PERRL - Routine Cardiovascular Exam Present: RRR, S1, S2 - Routine Abdominal Exam Present: soft, non distended, non tender - Routine Extremities Exam Present: edema. Absent: cyanosis, clubbing Comments: Pt has bilateral leg redness, due to rash that consists of multiple petechiae with areas of erythema. distally pt has thick dry scaly skin with some flakiness of the skin and probably onychomycosis. - Routine Skin Exam Present: petechiae, lesions, rash Comments: As above. - Routine Neurological Exam Present: alert, oriented X3, CN II-XII intact - Routine Psychiatric Exam Present: normal affect, cooperative, good insight Results - Labs CBC & Chem 7: 06/25/17 04:44 06/25/17 04:44 Microbiology Results: Microbiology 06/24/17 11:15 Skin Scraping - Final 06/20/17 11:23 Peripheral/Iv Start Blood Culture - Final No Growth After 5 Days 06/20/17 11:26 Peripheral/Iv Start Blood Culture - Final No Growth After 5 Days Assessment and Plan (1) Lower extremity cellulitis Current visit: Yes Status: Acute GI Prophylaxis: other Resuscitation Status: Full Code Assessment and Plan: Summary - Renato is a 77 YO male that was admitted with an erythematous rash of both lower extremities distallly and was thought to have cellulitis, superimposed on another chronic process (Rash had been there for > 2 months) however there was no response to IV antibiotics after 5 days; He was seen by Dr Watts (Staff ID specialist) who thought this could be a drug reaction or scabies. A prep for scabies was ordered and has not been resulted. A review of his meds showed that his beta hernandez could be associated with this kind of rash. His Labetalol was D/C on 06/24 and he was placed on telemetry (See below) and BP med changed to Norvasc. He stated on 06/25 this rash had been there for a "Very long time" and he was seen by a stitch separator for this in the past. He used a cream called "Sarna" for this with some improvement. He denies very having scabies. He also remembered he was diagnosed with a renal mass recently and was going to have an U/S. Records were requested and we have received a record of his renal mass - and a surgical evaluation for a surveillance colonoscopy (Dr Gomez). He stated his stitch separator is Dr Del Toro and we are waiting for his records to be sent to us (Second request sent today). Will also request surgery to evaluate for a skin biopsy. DIANGOSIS - 1) Erythematous rash of the lower extremities (Bilateral) superimposed on chronic lymphedema and onychomycosis. No reponse to Antibiotics ? of drug reaction ? Scabies ? Paraneoplastic (In view of renal mass). Increasing eosinophillia. - No change in rash - due to BB ? (Stopped on 06/24) - Per uptodate - < 1% lupus like reaction - psoriasiform reaction - with Labetalol. - PAUL negative - anti-histone NORMAL (NOT SUGGESTIVE OF DRUG INDUCED LUPUS) - Eosinophil count peaked at 700/cu mm and has not gone up highere - Check RPR for completeness. - Pt has a first degree AVB, not sure the indication for BB - > change to Norvasc (06/24) and placed on Telemetry - so far stable. - Pt has been developing Eosinophillia gradually - Absolute Eosinophil count today is 700. - Will add Ivermectin and consider steroids (IV or PO). - Will request surgical evaluation for a skin biopsy due to chronicity of changes. 2) CKD - Appears to be stable. Renal mass per previous records, had a retroperitoneal U/S ordered but not done. - BUN/Cr today 1.4/24 Renal U/S "............................................... FINDINGS: Both kidneys are present with normal cortical thickness and echogenicity. No evidence for collecting system dilatation, contour deforming mass, nephrolithiasis, or abnormal perinephric fluid collection. The right kidney measures 12 cm in length, and the left kidney measures 13 cm in length. 1.4 cm right renal cyst superiorly. Bilobed or septated cyst in the left kidney measuring 2.3 x 2.4 x 2.1 cm in size. No obvious renal mass. IMPRESSION: No hydronephrosis. No obvious renal mass seen by ultrasound. If there is clinical concern for a mass, renal mass protocol CT or contrast enhanced abdominal MRI is recommended for more detailed evaluation. There is a preliminary report by virtual radiologic. ............................................................" . 3) CAD - no CP Echocardiogram (Dr Pool - 06/24/2017) "............................... IMPRESSION 1. Normal LV systolic function with ejection fraction of 60%. 2. Biatrial dilation. 3. Left ventricular hypertrophy. 4. Mitral annulus calcification with moderate mitral regurgitation. 5. Mild aortic insufficiency. 6. Mild tricuspid regurgitation with moderate pulmonary hypertension with estimated pulmonary artery systolic pressure of 49. 7. Trace of pulmonary insufficiency. ............................................" - Baseline EKG showed a first degree AVB with a VA of 260 msec and inverted T waves in V5 and V6 - LVH could be due to HTN - No decreased LVEF, so Norvasc should be OK. 4) Obesity and deconditioning 5) BPH - stable 6) Complicating social factors - Pt has been living in a car, due to his home and RV being full of his "Stuff" . Not sure what intervention can be done to assist. This can complicate his D/C process. - Evaluated by Psychiatry - pt found to be competent. Pt is a Full code. Prevention Lovenox PPI - Time spent with patient 25 - 35 minutes Hospital Course Summary Disclaimer: The visit summary below is not to be considered part of the above Progress Note. Hospital Course: 06/23/17 14:16 Summary - Renato is a 77 YO male that came with what seems to be bilateral lower extremity cellulitis. He apparently has a home which is full of stuff and he can not live there anymore. He recently moved to his car that is also full of stuff. He will need to go to a [facility] or SN to complete antibiotics once we see a response. 1) Cellulitis of the lower extremities (Bilateral) superimposed on chronic lymphedema and onychomycosis. His antibiotic was changed from Clindamicyn to Vanco on 06/20. His erythema is a bit less "Angry" today (06/22). - Rash a bit less hyperemic today. - Blood cultures x 2 negative, but were NOT done prior to starting antibiotics. - On admisison there was a mention of pt having scabies. Pt has eosinophilia today - this has been trending up. He is not itching on his area of rash. - Nystatin to groin rash. 2) CKD - Appears to be stable. - BUN/Cr today 1.4/24 3) CAD - no CP. - Baseline EKG showed a first degree AVB with a VA of 260 msec and inverted T waves in V5 and V6 - Not sure if pt has orthopnea since he has been sleeping in his car. No reports of orthopnea here. 4) Obesity and deconditioning 5) BPH - stable 6) Complicating social factors - Pt has been living in a car, due to his home and RV being full of his "Stuff" . Not sure what intervention can be done to assist. This can complicate his D/C process. Pt is a Full code. Prevention Lovenox PPI 06/23/17 14:25 Assessment: 1. Bilateral LE Cellulitis 2. Atypical skin rash, R/O Scabies 3. HTN 4. HLD 5. Self care deficit 6. Hoarding, extreme 7. Risk for total self care failure 8. Recurrent dental infections with hx of implants 9. concern for cognitive decline Plan: 06/23/17 *Patient was previously on Clinda, changed to Vanco. No significant improvement on either. Continue Vanco, add Ceftriaxone. Rash appearance c/w strep infection. If no improvement, consider ID consult next week. Will obtain scabies scraping due to living situation. Will empirically treat with permethrin cream. *Continue ASA, Statin. *SW/CM following for possible placement. I am strongly concerned that patient is at risk for self care deficit. Will place psych consult for cognitive/competency eval. He will need SW to complete APS report on Saturday. May need NH placement if he is not competent. *Hx of dental infections- May need to consider further imaging if recurrent infections reported. Continue LMWH for px. DC PPI. No evidence of need at this time.
[2017-06-26] MEDS: HYDROCORTISONE 1% CREAM 28.35gm TOP PRN (22:31)
[2017-06-26] MEDS: LOVASTATIN 40 MG TABLET PO SCH (22:32)
[2017-06-26] MEDS ORDERED: REFRESH CLASSIC Eye Drops 0.4ml EACH EYE PRN (23:31)
[2017-06-27] MEDS: HYDROCORTISONE 1% CREAM 28.35gm TOP PRN ×4 (00:19→21:57)
[2017-06-27] MEDS: LORATADINE 10 MG TABLET PO SCH (06:15)
[2017-06-27] MEDS: CITALOPRAM 20 MG TABLET PO SCH (08:50)
[2017-06-27] MEDS: ENOXAPARIN 40 MG/0.4 ML INJECTION SQ SCH (08:51)
[2017-06-27] MEDS: ZINC PO SCH (08:51)
[2017-06-27] MEDS: STRESS FORMULA PO SCH (08:51)
[2017-06-27] MEDS: OMEGA-3 ACID ESTERS 1 GM CAPSULE PO SCH (08:51)
[2017-06-27] MEDS: MICONAZOLE 2% TP SCH ×2 (08:51→21:45)
[2017-06-27] MEDS: AMLODIPINE 5 MG TABLET PO SCH (08:51)
[2017-06-27] MEDS: ASPIRIN *EC* 81 MG TABLET PO SCH (08:51)
[2017-06-27] MEDS: CALCIUM POLYCARBOPHIL 625 MG TABLET PO SCH (08:51)
--- NOTE | 2017-06-27 15:55 | Progress Note ---
<Aziza Hoffman V - Last Filed: 06/27/17 15:44> Subjective: Renato is seen today in follow up. He has numerous list of questions regarding treatment, results. He overall feels that the itching has resolved. He does note some lower abdominal discomfort that is chronic however intermittent and is relieved with passing flatus. BP 119/64. Objective Vital signs: Temperature 96.7 F L 06/27/17 15:08 Pulse Rate 73 06/27/17 15:08 Respiratory Rate 16 06/27/17 15:08 Blood Pressure 119/64 06/27/17 15:08 Pulse Oximetry 91 06/27/17 15:08 Height/Weight/BMI: Height 1.73 m Weight 112.2 kg Body Mass Index 37.9 - Constitutional Present: well nourished, well developed - Routine HEENT Exam Eye: Present: EOMI ENT: Present: mucous membranes moist, dentition normal - Routine Respiratory Exam Present: CTA bilaterally. Absent: wheezes - Routine Cardiovascular Exam Present: RRR, S1, S2. Absent: murmur - Routine Abdominal Exam Present: soft, normoactive bowel sounds, non distended. Absent: tenderness - Routine Extremities Exam Present: edema (trace lower ext), normal capillary refill - Routine Back/Spine/Pelvis Exam Back/Spine: Present: full ROM - Routine Musculoskeletal Exam Musculoskeletal: Present: moving extremities well - Routine Skin Exam Present: erythema, dry, warm, rash - Routine Neurological Exam Present: alert, oriented X3, CN II-XII intact - Routine Lymphatic Exam Lymphatic: Absent: adenopathy - Routine Psychiatric Exam Present: normal affect, cooperative Results - Labs CBC & Chem 7: 06/27/17 06:18 06/27/17 06:18 Microbiology Results: Microbiology 06/24/17 11:15 Skin Scraping - Final 06/20/17 11:23 Peripheral/Iv Start Blood Culture - Final No Growth After 5 Days 06/20/17 11:26 Peripheral/Iv Start Blood Culture - Final No Growth After 5 Days Assessment and Plan (1) Lower extremity cellulitis Current visit: Yes Status: Acute Assessment and Plan: Impression Erythematous rash of the lower extremities (Bilateral) CKD CAD Obesity and deconditioning BPH Plan Consult was initially placed with Dr Raza for skin biopsy for further testing. After lengthy discussion patient is somewhat hesitant. Did inform patient that numerous test are pending and will likely be sent to PCP for outpatient follow up given this condition has been ongoing for several years Old records are received from Dr Laura Seymour (field marketing representative). He was seen May 2016 in which she had several cultures and biopsies. Reports do indicate that at that time. He did have a pustule area on his Botox that grew staph infection. DAYANNA and cultures at that time were positive for Dermatophyte. He was diagnosed with Seborrheic dermatitis with chronic dermatophyte infection. He was placed on Keflex as well as Lamisil and recommended to take over-the- counter antihistamine. He shouldn't does admit today that he did not take these medications as instructed, however, did utilize a topical cream, Sarna. He was seen again in November 2016 in which he was given T gel samples and recommended anti-histamine. Further orders and plan of care discussed with attending. Hospital Course Summary Disclaimer: The visit summary below is not to be considered part of the above Progress Note. Hospital Course: 06/23/17 14:16 Summary - Renato is a 77 YO male that came with what seems to be bilateral lower extremity cellulitis. He apparently has a home which is full of stuff and he can not live there anymore. He recently moved to his car that is also full of stuff. He will need to go to a [facility] or [facility] to complete antibiotics once we see a response. 1) Cellulitis of the lower extremities (Bilateral) superimposed on chronic lymphedema and onychomycosis. His antibiotic was changed from Clindamicyn to Vanco on 06/20. His erythema is a bit less "Angry" today (06/22). - Rash a bit less hyperemic today. - Blood cultures x 2 negative, but were NOT done prior to starting antibiotics. - On admisison there was a mention of pt having scabies. Pt has eosinophilia today - this has been trending up. He is not itching on his area of rash. - Nystatin to groin rash. 2) CKD - Appears to be stable. - BUN/Cr today 1.01/28 3) CAD - no CP. - Baseline EKG showed a first degree AVB with a NE of 260 msec and inverted T waves in V5 and V6 - Not sure if pt has orthopnea since he has been sleeping in his car. No reports of orthopnea here. 4) Obesity and deconditioning 5) BPH - stable 6) Complicating social factors - Pt has been living in a car, due to his home and RV being full of his "Stuff" . Not sure what intervention can be done to assist. This can complicate his D/C process. Pt is a Full code. Prevention Lovenox PPI 06/23/17 14:25 Assessment: 1. Bilateral LE Cellulitis 2. Atypical skin rash, R/O Scabies 3. HTN 4. HLD 5. Self care deficit 6. Hoarding, extreme 7. Risk for total self care failure 8. Recurrent dental infections with hx of implants 9. concern for cognitive decline Plan: 06/23/17 *Patient was previously on Clinda, changed to Vanco. No significant improvement on either. Continue Vanco, add Ceftriaxone. Rash appearance c/w strep infection. If no improvement, consider ID consult next week. Will obtain scabies scraping due to living situation. Will empirically treat with permethrin cream. *Continue ASA, Statin. *SW/CM following for possible placement. I am strongly concerned that patient is at risk for self care deficit. Will place psych consult for cognitive/competency eval. He will need SW to complete APS report on Saturday. May need NH placement if he is not competent. *Hx of dental infections- May need to consider further imaging if recurrent infections reported. Continue LMWH for px. DC PPI. No evidence of need at this time. 06/27/17 Plan Consult was initially placed with Dr Raza for skin biopsy for further testing. After lengthy discussion patient is somewhat hesitant. Did inform patient that numerous test are pending and will likely be sent to PCP for outpatient follow up given this condition has been ongoing for several years Old records are received from Dr Laura Seymour (field marketing representative). He was seen May 2016 in which she had several cultures and biopsies. Reports do indicate that at that time. He did have a pustule area on his Botox that grew staph infection. DAYANNA and cultures at that time were positive for Dermatophyte. He was diagnosed with Seborrheic dermatitis with chronic dermatophyte infection. He was placed on Keflex as well as Lamisil and recommended to take over-the- counter antihistamine. He shouldn't does admit today that he did not take these medications as instructed, however, did utilize a topical cream, Sarna. He was seen again in November 2016 in which he was given T gel samples and recommended anti-histamine. Further orders and plan of care discussed with attending. <Ash Hoang - Last Filed: 06/27/17 20:39> Objective Vital signs: Temperature 96.7 F L 06/27/17 15:08 Pulse Rate 92 06/27/17 16:00 Respiratory Rate 16 06/27/17 15:08 Blood Pressure 119/64 06/27/17 15:08 Pulse Oximetry 91 06/27/17 15:08 Height/Weight/BMI: Height 1.73 m Weight 112.2 kg Body Mass Index 37.9 Results - Labs CBC & Chem 7: 06/27/17 06:18 06/27/17 06:18 Microbiology Results: Microbiology 06/24/17 11:15 Skin Scraping - Final 06/20/17 11:23 Peripheral/Iv Start Blood Culture - Final No Growth After 5 Days 06/20/17 11:26 Peripheral/Iv Start Blood Culture - Final No Growth After 5 Days Assessment and Plan (1) Lower extremity cellulitis Current visit: Yes Status: Acute Assessment and Plan: Impression Erythematous rash of the lower extremities (Bilateral) CKD CAD Obesity and deconditioning BPH Have independently examined pt. Chart reviewed. Case discussed with my METAL MODEL BUILDER. Care plan developed with my supervision; agree with above. Sleeping soundly this evening. Not ready awaken to verbal stimuli. Lung: clear bilaterally, no distress on RA. CV: regular Plan: Skin Bx in outpatient setting. ID recommends stopping oral antibiotics. OTC antihistamines likely to be helpful for rash, but reluctant to use as causes urinary symptoms. Topical benadryl may be of benefit. Medically doing well-no evidence for sepsis. Anticipate discharge in near future. Hospital Course Summary Disclaimer: The visit summary below is not to be considered part of the above Progress Note.
[2017-06-27] MEDS: DIPHENHYDRAMINE 2% CREAM 28gm TOP SCH (21:45)
[2017-06-27] MEDS: LOVASTATIN 40 MG TABLET PO SCH (21:45)
--- NOTE | 2017-06-27 22:00 | Consultation ---
DATE OF CONSULTATION 06/27/2017 HISTORY OF PRESENT ILLNESS This patient is 77 years old. He states today that he has had itching at his body for the last three years. This occurs at various locations of his body. At one time or another, the itching has occurred at nearly every area of his body. It moves around from one location to the next. The patient states that he did see Dr. Laura Del Toro for a dermatology consultation about two years ago regarding a rash at his groin. Dr. Del Toro recommended three different medications for the patient. The patient did not take those medications. The patient has seen Dr. Dawson Gomez as his primary care physician. He states that Dr. Gomez has told him to apply some Vaseline to the dorsal surface of his feet for treatment of dryness and roughness of the skin at this area. The patient states that he develops a red rash at his feet, ankles and legs which comes and goes. This is a red rash which occurs at both lower extremities. The rash will be present for a while and go away for a while and then come back again for a while. This rash has most recently been present at his feet, ankles and lower legs bilaterally for the past three months. The patient was admitted to [facility] from the emergency room on 09/2017. His massage therapist suggested that he see Dr. Dawson Gomez regarding his legs. He was seen by Dr. Dawson Gomez and Dr. Dawson Gomez directed him to go to [facility] Emergency Room for evaluation of possible cellulitis of the lower extremities. The patient had been taking some Keflex which he had at home. It was thought at the emergency room that the patient might have bilateral lower extremity cellulitis which had failed outpatient therapy. The patient was admitted to [facility] from the emergency room on 2016 for possible bilateral lower extremity cellulitis treatment. The patient was started on some intravenous antibiotics. The patient was seen in consultation by Dr. Jennifer Ayala for an Infectious Disease consultation on 06/24/2017. Dr. Ayala thought that the patient could possibly have a drug rash involving the lower extremities. It was thought that it could be related to the cephalosporins which the patient had been taking. There was a less likely chance that it was related to the vancomycin and clindamycin which the patient received during this hospitalization. Dr. Ayala recommended stopping the current antibiotics. She recommended elevating the lower extremities above the heart level. She recommended diuresis. She thought that the patient could be placed on some treatment with doxycycline in case there was some element of cellulitis involving the lower extremities. She recommended topical antifungal cream to the feet b.i.d. The patient was seen for a followup visit by Dr. Jennifer Ayala on 06/26/2017. She did not think at this time that the rash represented any infectious etiology. She did recommend discontinuation of the doxycycline. She thought that skin biopsy might be considered at this time to help determine the nature of this bilateral lower extremity rash. She did discuss this with Dr. Jones who was the hospitalist taking care of the patient at that time. Dr. Jones discussed this option with the patient on 06/26/2017. General Surgery is consulted at this time for possible skin biopsy of the lower extremities to help determine the nature of this red rash. PHYSICAL EXAM EXTREMITIES: The patient does have a diffuse red rash at the dorsal surface of the feet, at the ankles and at the legs. The rash is not present at the soles of the feet. This is a diffuse rash with a relatively uniform appearance throughout the area where it is present. IMPRESSION Red rash at dorsal surface of feet, at ankles and at lower extremities bilaterally of at least three months' duration of unknown etiology. RECOMMENDATION Biopsy of skin at one of the lower extremities. PATIENT EDUCATION I did talk with the patient today about what would be involved with biopsy of the skin at the lower extremities. This can be done under local anesthesia. I told the patient we could either do a small elliptical incisional type of biopsy or we could use punch biopsy. Dr. Jones did talk with the patient about the possibility of punch biopsy. The nature of each of these two biopsy methods was described to the patient. Advantages and disadvantages were discussed. Expected benefits of biopsy were discussed. Alternatives were discussed. The patient did ask about exhausting all noninvasive options for evaluation of the rash before proceeding with biopsy. The patient did specifically ask about potential risks and complications of biopsy. The potential risks and complications of bleeding, infection, poor wound-healing, separation of skin margins following stitch removal and other type of poor wound -healing complications were all discussed with the patient. The patient did ask if there was a 100% guarantee that the biopsy would provide a diagnosis and he was told that there is no 100% guarantee of this. He was told that there is some chance that he could have a skin biopsy and still not have a diagnosis after the skin biopsy results were returned. Aziza Hoffman APRN, was in the room throughout all this discussion and participated in this discussion with the patient. PLAN At the end of all this discussion, the patient is not ready to give consent to have a skin biopsy at his leg yet at this time. He might be willing to do this at some point in the future but is not willing to give consent to have this done today. RENÉE
[2017-06-28] MEDS: LORATADINE 10 MG TABLET PO SCH (06:21)
[2017-06-28] MEDS: OMEGA-3 ACID ESTERS 1 GM CAPSULE PO SCH (09:49)
[2017-06-28] MEDS: CALCIUM POLYCARBOPHIL 625 MG TABLET PO SCH (09:49)
[2017-06-28] MEDS: CITALOPRAM 20 MG TABLET PO SCH (09:49)
[2017-06-28] MEDS: AMLODIPINE 5 MG TABLET PO SCH (09:50)
[2017-06-28] MEDS: ZINC PO SCH (09:50)
[2017-06-28] MEDS: MICONAZOLE 2% TP SCH (09:50)
[2017-06-28] MEDS: ENOXAPARIN 40 MG/0.4 ML INJECTION SQ SCH (09:50)
[2017-06-28] MEDS: STRESS FORMULA PO SCH (09:50)
[2017-06-28] MEDS: DIPHENHYDRAMINE 2% CREAM 28gm TOP SCH ×2 (09:51→15:54)
[2017-06-28] MEDS: ASPIRIN *EC* 81 MG TABLET PO SCH (09:53)
--- NOTE | 2017-06-28 14:47 | Progress Note ---
Subjective: F/U: Erythematous rash to B LE About the same. Does note some slight increase itch to legs-topical Benadryl help, but need to put on thick. Some frustration than we haven't found out ' what is causing' his skin problems. Not showing signs of sepsis. Ambulating well. Breathing well. Objective Vital signs: Temperature 97.3 F 06/28/17 09:00 Pulse Rate 87 06/28/17 09:00 Respiratory Rate 16 06/28/17 09:00 Blood Pressure 139/64 06/28/17 09:00 Pulse Oximetry 94 06/28/17 09:00 Rhythm: First Degree AV-Block Height/Weight/BMI: Height 1.73 m Weight 113 kg Body Mass Index 37.9 - Constitutional Present: no acute distress, well nourished, well developed, obese, cooperative - Routine HEENT Exam Head: Present: normocephalic, atraumatic Eye: Present: EOMI, PERRL ENT: Present: mucous membranes moist - Routine Respiratory Exam Present: decreased breath sounds. Absent: respiratory distress, wheezes, crackles - Routine Cardiovascular Exam Present: RRR, no murmur - Routine Abdominal Exam Present: soft, normoactive bowel sounds, non distended, non tender - Routine Extremities Exam Present: edema (+1 BLE). Absent: cyanosis, clubbing - Routine Skin Exam Present: erythema (Mild erythema over LE extending above the knee bilaterally. ) - Routine Neurological Exam Present: alert, CN II-XII intact, moving all extremities, vision grossly intact , hearing grossly intact. Absent: motor deficit - Routine Psychiatric Exam Present: normal affect. Absent: anxious, agitated Results - Labs CBC & Chem 7: 06/27/17 06:18 06/27/17 06:18 Microbiology Results: Microbiology 06/24/17 11:15 Skin Scraping - Final 06/20/17 11:23 Peripheral/Iv Start Blood Culture - Final No Growth After 5 Days 06/20/17 11:26 Peripheral/Iv Start Blood Culture - Final No Growth After 5 Days Assessment and Plan (1) Lower extremity cellulitis Current visit: Yes Status: Acute DVT Prophylaxis: Lovenox Resuscitation Status: Full Code Assessment and Plan: Impression Erythematous rash of the lower extremities (Bilateral) Uncertain etiology. ? Fungal in nature, ? Allergic Suspected cellulitis POA has resolves. ID not recommending continued antibiotic therapy. Stage III CKD CAD HDL Obesity and deconditioning BPH Plan Medically stable for discharge to home. Recommend topical antifungal (miconazole use here) and Benadryl to legs BID. Could potentially change to different OTC antifungal based on cost. Not seen significant improvement with Claritin-may stop. Watch for increase rash without this medication. Doubt if rash secondary to Atenolol. Watch for increased rash with restarting Atenolol. Will continue with Norvasc to help blood pressure control. Would recommend Skin Bx in outpatient setting. Could be done by Dr Gomez or Dr Raza (seen by Ry during hospitalization). Will have pt follow up with Dr Gomez in 1 week for reevaluation of legs and any further treatment recommendations. Case discussed with CM. Time spent with patient care and discharge greater than 60 minutes. - Time spent with patient discharge greater than 30 minutes Hospital Course Summary Disclaimer: The visit summary below is not to be considered part of the above Progress Note. Hospital Course: 06/18/17 Admission Assessment and Plan: 1. Cellulitis of bilateral lower extremities, L > R, failed outpatient treatment with Keflex. Admitted to continue serial examination, elevation, IV Clindamycin. He does not appear septic, and some of this issue is acute on subacute/chronic. Nevertheless he is understandably felt to be high risk for readmission at a later date much sicker if this is not addressed appropriately at this time. Case management consult placed on admission; he is a very pleasant and honest appearing liz, but currently apparently living in his car, and he forgets to take his medications on a regular basis. 2. CKD. He was given 1L NS in the ER, recheck BUN/SCr in the am. He may have a trace of prerenal azotemia at this time. 3. CAD. He is s/p CABG ~14 years ago, no active concerns here, he has stable LIU likely from deconditioning. 4. Obesity and deconditioning with BMI ~38 kg/m2. PT/OT. Lovenox for DVT PPx. 5. Rash on thighs. Somewhat difficult to see on telemed exam, but concern for bedbugs or scabies or similar infestation. Nursing was already aware; consider trial of treatment for this PTD. 6. BPH. Restart Flomax. 7. Further symptomatic, supportive, and diagnostic cares will be provided as the current workup, or changes in his clinical scenario, indicate. Plan of care was discussed with the patient with RN at the bedside and they expressed understanding and desire to proceed. This included a review of his desire to be "Full Code Status." 06/19/17 Continue antibiotics for Cellulitis 06/20/17 Add vancomicyn Get blood cultures x 2 now Stop Clindamicyn 06/21/17 No change on the rash - not better not worse Continue Vanco 06/22/17 Today his lower extremity rash is a bit less "Bright red" colored. Nystatin to groin rash. 06/23/17 *Patient was previously on Clinda, changed to Vanco. No significant improvement on either. Continue Vanco, add Ceftriaxone. Rash appearance c/w strep infection. If no improvement, consider ID consult next week. Will obtain scabies scraping due to living situation. Will empirically treat with permethrin cream. *Continue ASA, Statin. *SW/CM following for possible placement. I am strongly concerned that patient is at risk for self care deficit. Will place psych consult for cognitive/competency eval. He will need SW to complete APS report on Saturday. May need NH placement if he is not competent. *Hx of dental infections- May need to consider further imaging if recurrent infections reported. Continue LMWH for px. DC PPI. No evidence of need at this time. 06/24/17 ID evaluation: Drug rash involving LEs, etiology not clear but could be related to cephalosporins, less likely Vancomycin or clinda Recommend stopping current antibiotics, and elevating LEs at or above heart level. I would also recommend diuresis. I would try doxycycline in case there is still an element of cellulitis involving the LEs. Topical antifungal cream to feet BID. Psych evaluation: Homelessness Hoarding behavior Obsessive-compulsive disorder type: hoarding disorder Qualified Code(s): F42.3 - Hoarding disorder Patient DOES have capacity to make reasoned decisions in regards to healthcare and finances, and should be allowed to decide what he would like to do upon discharge. Will look into services available to help with hoarding behavior and agree with continuing with psychiatric services on an outpatient basis. Thank you for this consult - please contact me with further questions. 06/25/17 No change in rash - due to BB ? (Stopped on 06/24) - Per uptodate - < 1% lupus like reaction - psoriasiform reaction - with Labetalol. PAUL negative - anti-histone done and PENDING. Pt has a first degree AVB, not sure the indication for BB - > change to Norvasc (06/24) and placed on Telemetry - so far stable. Pt has been developing Eosinophillia gradually - Absolute Eosinophil count today is 700. Increasing eosinophilia, intense pruritus and lack of reponse to antibiotics suggest a possible drug reaction. Will add Ivermectin and consider steroids (IV or PO). If No response pt will need a skin biopsy. 06/26/17 ID reevaluation: I don't think this rash represents an infectious etiology. Would d/c the doxycycline. Consider skin biopsy. Discussed with Dr. Jones. 06/27/17 Consult was initially placed with Dr Raza for skin biopsy for further testing. After lengthy discussion patient is somewhat hesitant. Did inform patient that numerous test are pending and will likely be sent to PCP for outpatient follow up given this condition has been ongoing for several years Old records are received from Dr Laura Seymour (flight control specialist). He was seen May 2016 in which she had several cultures and biopsies. Reports do indicate that at that time. He did have a pustule area on his Botox that grew staph infection. DAYANNA and cultures at that time were positive for Dermatophyte. He was diagnosed with Seborrheic dermatitis with chronic dermatophyte infection. He was placed on Keflex as well as Lamisil and recommended to take over-the- counter antihistamine. He shouldn't does admit today that he did not take these medications as instructed, however, did utilize a topical cream, Sarna. He was seen again in November 2016 in which he was given T gel samples and recommended anti-histamine. Dr. Raza consult At the end of all this discussion, the patient is not ready to give consent to have a skin biopsy at his leg yet at this time. He might be willing to do this at some point in the future but is not willing to give consent to have this done today. 06/28/17 Medically stable for discharge to home. Recommend topical antifungal (miconazole use here) and Benadryl to legs BID. Could potentially change to different OTC antifungal based on cost. Not seen significant improvement with Claritin-may stop. Watch for increase rash without this medication. Doubt if rash secondary to Atenolol. Watch for increased rash with restarting Atenolol. Will continue with Norvasc to help blood pressure control. Would recommend Skin Bx in outpatient setting. Could be done by Dr Gomez or Dr Raza (seen by Ry during hospitalization). Will have pt follow up with Dr Gomez in 1 week for reevaluation of legs and any further treatment recommendations.
--- NOTE | 2017-06-28 15:28 | Discharge Summary ---
Discharge Information Date of admission: 06/18/17 19:23 Anticipated date of discharge: 06/28/17 Attending Physician: Javi Jones MD Primary care physician: Reza Gomez MD Consults: Physician Consult: Azul Hammer Reason For Exam: Competency eval, possible need for [facility] Physician Consult: Jennifer Ayala Reason For Exam: rash Physician Consult: Ja Raza Reason For Exam: skin biopsy - Discharge Diagnosis (1) Lower extremity cellulitis Status: Acute Discharge Diagnosis: Admitting diagnosis Cellulitis of bilateral lower extremities, L > R, failed outpatient treatment with Keflex. Discharge diagnosis Erythematous rash of the lower extremities (Bilateral) Uncertain etiology. ? Fungal in nature, ? Allergic Suspected cellulitis POA has resolves. ID not recommending continued antibiotic therapy. Associated conditions and complications Stage III CKD CAD HDL Obesity and deconditioning BPH Homelessness Hoarding behavior Obsessive-compulsive disorder type: hoarding disorder Qualified Code(s): F42.3 - Hoarding disorder - Procedures Procedures: Date of Exam: 06/24/17 Type of Exam: US echo doppler complete Left atrium is dilated. Left ventricle end-diastolic dimension is normal. Left ventricle wall thickness is increased. LV systolic function is normal with ejection fraction of 60%. Right atrium is dilated. Right ventricle is normal. Aortic root dimension is normal. Mitral valve annulus is calcified. Mitral valve leaflets are normal with moderate mitral regurgitation. Aortic valve is a trileaflet structure with no stenosis. Mild aortic insufficiency is present. Tricuspid valve shows mild tricuspid regurgitation with moderate pulmonary hypertension with estimated pulmonary artery systolic pressure of 49. Pulmonary valve shows trace of pulmonary insufficiency. There is no pericardial effusion. IMPRESSION 1. Normal LV systolic function with ejection fraction of 60%. 2. Biatrial dilation. 3. Left ventricular hypertrophy. 4. Mitral annulus calcification with moderate mitral regurgitation. 5. Mild aortic insufficiency. 6. Mild tricuspid regurgitation with moderate pulmonary hypertension with estimated pulmonary artery systolic pressure of 49. 7. Trace of pulmonary insufficiency. - Laboratory Labs: Admit Lab 06/20/17 09:44 WBC 6.6 Hgb 12.4 L Hct 37.6 L MCV 90.0 Plt Count 147 Neut % (Auto) 66.9 H Lymph % (Auto) 17.6 L Edmunds % (Auto) 8.0 Eos % (Auto) 6.7 H Admit Lab 09/14/17 09:44 Sodium 141 Potassium 4.4 Chloride 108 H Carbon Dioxide 24 BUN 22.0 H Creatinine 1.4 GFR Calculation 49 BUN/Creatinine Ratio 16 Glucose 109 Calculated Osmolality 275 Total Bilirubin 0.70 AST 19 ALT 35 Alkaline Phosphatase 53 06/27/17 06:18 06/27/17 06:18 - Microbiology Microbiology 06/24/17 11:15 Skin Scraping - Final 06/20/17 11:23 Peripheral/Iv Start Blood Culture - Final No Growth After 5 Days 06/20/17 11:26 Peripheral/Iv Start Blood Culture - Final No Growth After 5 Days - Radiology Radiology: Date of Exam: 06/18/17 PROCEDURE: US venous doppler LE BI Findings: There is no evidence for acute deep venous thrombosis in either thigh. Specifically, serial graded compression was performed from the inguinal ligament to the popliteal bifurcation, bilaterally, demonstrating appropriate compressibility of the deep venous system. In addition, color and pulsed Doppler demonstrate appropriate spontaneous flow, variation with respiration, and augmentation with calf compression. At the ankle, normal flow is identified in the posterior tibial veins; these vessels are also normal in caliber. Impression: No evidence of acute DVT in either lower limb. Date of Exam: 06/25/17 PROCEDURE: US renal BI FINDINGS: Both kidneys are present with normal cortical thickness andechogenicity. No evidence for collecting system dilatation, contour deforming mass, nephrolithiasis, or abnormal perinephric fluid collection.The right kidney measures 12 cm in length, and the left kidney measures 13 cm in length. 1.4 cm right renal cyst superiorly. Bilobed or septated cyst in the left kidney measuring 2.3 x 2.4 x 2.1 cm in size. No obvious renal mass. IMPRESSION: No hydronephrosis. No obvious renal mass seen by ultrasound. If there is clinical concern for a mass, renal mass protocol CT or contrast enhanced abdominal MRI is recommended for more detailed evaluation. History of Present Illness HPI: This is a pleasant 77 year old white male who has had chronic lower extremity swelling, with some redness, he states for at least 4-5 months. However in the last week it has become much worse, exacerbated by a change in his living arrangements, he is currently sleeping in his car which does not allow him to elevate his legs at night. He was seen in clinic after referred there by a massage therapist, they apparently referred him to the ED. He denies recent fevers or chills. He has been partially treating his legs and what sounds like some smouldering dental infections/abscesses with Keflex which was prescribed for dental infections, although he admits that he has trouble remembering to take regularly scheduled meds like antibiotics, as he has memory struggles. In the ER, he was felt to have cellulitis, L>R, of the lower extremities which has failed outpatient treatment, albeit for obvious reasons; it certainly is reasonable to admit him for IV antibiotics at this time before it gets any worse. Venous doppler was negative for DVT. For complete details of the H&P refer to that document. Objective Vital signs: Temperature 97.3 F 06/28/17 09:00 Pulse Rate 87 06/28/17 09:00 Respiratory Rate 16 06/28/17 09:00 Blood Pressure 139/64 06/28/17 09:00 Pulse Oximetry 94 06/28/17 09:00 Rhythm: First Degree AV-Block Height/Weight/BMI: Height 1.73 m Weight 113 kg Body Mass Index 37.9 Hospital Course This is a general summary of the patient's hospital course. For more details refer to the complete medical record. Hospital course: 06/18/17 Admission Assessment and Plan: 1. Cellulitis of bilateral lower extremities, L > R, failed outpatient treatment with Keflex. Admitted to continue serial examination, elevation, IV Clindamycin. He does not appear septic, and some of this issue is acute on subacute/chronic. Nevertheless he is understandably felt to be high risk for readmission at a later date much sicker if this is not addressed appropriately at this time. Case management consult placed on admission; he is a very pleasant and honest appearing liz, but currently apparently living in his car, and he forgets to take his medications on a regular basis. 2. CKD. He was given 1L NS in the ER, recheck BUN/SCr in the am. He may have a trace of prerenal azotemia at this time. 3. CAD. He is s/p CABG ~14 years ago, no active concerns here, he has stable LIU likely from deconditioning. 4. Obesity and deconditioning with BMI ~38 kg/m2. PT/OT. Lovenox for DVT PPx. 5. Rash on thighs. Somewhat difficult to see on telemed exam, but concern for bedbugs or scabies or similar infestation. Nursing was already aware; consider trial of treatment for this PTD. 6. BPH. Restart Flomax. 7. Further symptomatic, supportive, and diagnostic cares will be provided as the current workup, or changes in his clinical scenario, indicate. Plan of care was discussed with the patient with RN at the bedside and they expressed understanding and desire to proceed. This included a review of his desire to be "Full Code Status." 06/19/17 Continue antibiotics for Cellulitis 06/20/17 Add vancomycin Get blood cultures x 2 now Stop Clindamycin 06/21/17 No change on the rash - not better not worse Continue Vanco 06/22/17 Today his lower extremity rash is a bit less "Bright red" colored. Nystatin to groin rash. 06/23/17 *Patient was previously on Clinda, changed to Vanco. No significant improvement on either. Continue Vanco, add Ceftriaxone. Rash appearance c/w strep infection. If no improvement, consider ID consult next week. Will obtain scabies scraping due to living situation. Will empirically treat with permethrin cream. *Continue ASA, Statin. *SW/CM following for possible placement. I am strongly concerned that patient is at risk for self care deficit. Will place psych consult for cognitive/competency eval. He will need SW to complete APS report on Saturday. May need NH placement if he is not competent. *Hx of dental infections- May need to consider further imaging if recurrent infections reported. Continue LMWH for px. DC PPI. No evidence of need at this time. 06/24/17 ID evaluation: Drug rash involving LEs, etiology not clear but could be related to cephalosporins, less likely Vancomycin or clinda Recommend stopping current antibiotics, and elevating LEs at or above heart level. I would also recommend diuresis. I would try doxycycline in case there is still an element of cellulitis involving the LEs. Topical antifungal cream to feet BID. Psych evaluation: Homelessness Hoarding behavior Obsessive-compulsive disorder type: hoarding disorder Qualified Code(s): F42.3 - Hoarding disorder Patient DOES have capacity to make reasoned decisions in regards to healthcare and finances, and should be allowed to decide what he would like to do upon discharge. Will look into services available to help with hoarding behavior and agree with continuing with psychiatric services on an outpatient basis. Thank you for this consult - please contact me with further questions. 06/25/17 No change in rash - due to BB ? (Stopped on 06/24) - Per uptodate - < 1% lupus like reaction - psoriasiform reaction - with Labetalol. PAUL negative - anti-histone done and PENDING. Pt has a first degree AVB, not sure the indication for BB - > change to Norvasc (06/24) and placed on Telemetry - so far stable. Pt has been developing Eosinophillia gradually - Absolute Eosinophil count today is 700. Increasing eosinophilia, intense pruritus and lack of response to antibiotics suggest a possible drug reaction. Will add Ivermectin and consider steroids (IV or PO). If No response pt will need a skin biopsy. 06/26/17 ID reevaluation: I don't think this rash represents an infectious etiology. Would d/c the doxycycline. Consider skin biopsy. Discussed with Dr. Jones. 06/27/17 Consult was initially placed with Dr Raza for skin biopsy for further testing. After lengthy discussion patient is somewhat hesitant. Did inform patient that numerous test are pending and will likely be sent to PCP for outpatient follow up given this condition has been ongoing for several years Old records are received from Dr Laura Seymour (supervisor of operations). He was seen May 2016 in which she had several cultures and biopsies. Reports do indicate that at that time. He did have a pustule area on his Botox that grew staph infection. DAYANNA and cultures at that time were positive for Dermatophyte. He was diagnosed with Seborrheic dermatitis with chronic dermatophyte infection. He was placed on Keflex as well as Lamisil and recommended to take over-the- counter antihistamine. He shouldn't does admit today that he did not take these medications as instructed, however, did utilize a topical cream, Sarna. He was seen again in November 2016 in which he was given T gel samples and recommended anti-histamine. Dr. Raza consult At the end of all this discussion, the patient is not ready to give consent to have a skin biopsy at his leg yet at this time. He might be willing to do this at some point in the future but is not willing to give consent to have this done today. 06/28/17 Had long discussion with patient about the rash to his legs. Currently, not seeing evidence of bacterial infection. Possible some fungal and allergic component. Discussed treatment recommendations. Patient with frustration that 'not more is to be done.' Advised medically stable, further evaluation can be done in outpatient setting. Medically stable for discharge to home. Recommend topical antifungal (miconazole use here) and Benadryl to legs BID. Could potentially change to different OTC antifungal based on cost. Not seen significant improvement with Claritin-may stop. Watch for increase rash without this medication. Doubt if rash secondary to Atenolol. Watch for increased rash with restarting Atenolol. Will continue with Norvasc to help blood pressure control. Would recommend Skin Bx in outpatient setting. Could be done by Dr Gomez or Dr Raza (seen by Ry during hospitalization). Will have pt follow up with Dr Gomez in 1 week for reevaluation of legs and any further treatment recommendations. Time spent with patient: discharge greater than 30 minutes DVT Prophylaxis: Lovenox Discharge Plan - Med Rec/Dispo Referrals/Follow Up: Reza Gomez MD [Family Provider] - [facility] Instructions: Cellulitis (GEN) Additional Instructions: OUTPATIENT THERAPY APPOINTMENT AT [facility]; ON Jul.08, AT 1:00 PM, WITH PETER MITCHELL. BE SURE TO BRING YOUR INSURANCE CARDS. Prescriptions: New Diphenhydramine Cream [Benadryl Extra Strength Cream] 1 applic TOP BID tube Miconazole Nitrate [Antifungal Cream] 1 applic TP BID cream..g. Amlodipine [Norvasc] 5 mg PO DAILY #30 tab Continue Lovastatin [Mevacor] 40 mg PO DAILY Calcium Polycarbophil [Fiber] 1,250 mg PO DAILY Aspirin [Adult Low Dose Aspirin EC] 81 mg PO DAILY Citalopram [Celexa] 20 mg PO DAILY Fluticasone/Salmeterol 500/50 [Advair 500-50Diskus] 1 puff PO DAILY Vitamin B Complex [Balanced B-50] 1 tab PO DAILY #0 Atenolol 25 mg PO DAILY #0 Com[place]-3 Acid Ethyl Esters [Lovaza] 2 gm PO DAILY Furosemide 20 mg PO DAILY Discontinued cephALEXin [Cephalexin] 500 mg PO TID Discharge Instructions/Outpatient Orders: Final Provider Discharge Instructions Location: Determined By Patient - Disposition 01 Discharged Home, Self-Care - Attestation Attestation Narrative: 06/28/17 15:34 I have independently interviewed and examined patient prior to discharge. See my progress note today for details. Medically stable for discharge to home.
[2017-06-28 15:47] VITALS: BP 148/70; RESP 18; TEMP 97.7; O2SAT 96
[2017-06-28] MEDS: HYDROCORTISONE 1% CREAM 28.35gm TOP PRN (15:55)
[2017-06-28 17:47] VITALS: PULSE 70
== END 2017-06-28 18:30 | disposition home or self-care (01) | DRG 603 ==
LOC: ED 17:03 → MED 19:23
PROVIDERS: ADMIT Internal Medicine; ATTEND Internal Medicine

== ENCOUNTER 2017-08-28 10:40 | Inpatient (IN) ==
[2017-08-28] MEDS ORDERED: SALINE FLUSH 10ml SYRINGE IVF PRN (10:54)
--- NOTE | 2017-08-28 10:55 | Emergency Department Report ---
General Adult HPI - General Chief complaint: Shortness of Breath/Dyspnea Stated complaint: Soa,Bradshaw,Chf Time Seen by Provider: 08/28/17 10:53 Source: patient Mode of arrival: wheelchair Limitations: no limitations - History of Present Illness HPI narrative: 77-year-old male presents to the emergency department with a chief complaint of shortness of breath. Patient presented to his primary care physician Dr. Gomez for evaluation and was referred to the ED. patient has noted gradual progression of shortness of breath with orthopnea and exertion. Patient did note feeling an usual tight sensation in his chest earlier today which resolved prior to arrival to the emergency department. Patient denies any current pain or discomfort. Patient states that the shortness of breath has been persistent in nature since onset. He denies any other complaints or associated symptoms. Patient has a history of congestive heart failure and has noted similar symptoms in the past. - Related Data Home Medications Medication Instructions Recorded Confirmed Atenolol 25 mg PO HS #0 03/07/12 08/28/17 Aspirin [Adult Low Dose Aspirin EC] 81 mg PO HS 06/18/17 08/28/17 Calcium Polycarbophil [Fiber] 1,250 mg PO HS 06/18/17 08/28/17 Citalopram [Celexa] 20 mg PO HS 06/18/17 08/28/17 Lovastatin [Mevacor] 40 mg PO HS 06/18/17 08/28/17 [place]-3 Acid Ethyl Esters [Lovaza] 2 gm PO HS 06/18/17 08/28/17 Cholecalciferol (Vitamin D3) 1,000 unit PO HS 08/28/17 08/28/17 [Vitamin D3] Diphenhydramine Cream [Benadryl 1 applicatio TOP BID PRN 08/28/17 08/28/17 Extra Strength Cream] Fluticasone/Salmeterol [Airduo 1 each IH HS 08/28/17 08/28/17 Respiclick 113-14 Mcg] Miconazole Nitrate [Antifungal 1 applicatio TP BID PRN 08/28/17 08/28/17 Cream] Vitamin B Complex Vit C No.4 150 mg PO HS 08/28/17 08/28/17 [Super B Complex] Allergies Allergy/AdvReac Type Severity Reaction Status Date / Time decongestant AdvReac Uncoded 06/18/17 17:13 Review of Systems Constitutional: Denies: fever, chills Eyes: Denies: eye pain, vision change ENT: Denies: ear pain, throat pain Cardiovascular: Reports: chest pain (Resolved. ), dyspnea on exertion, orthopnea. Denies: palpitations Respiratory: Reports: dyspnea. Denies: cough Gastrointestinal: Denies: abdominal pain, nausea, vomiting, diarrhea Genitourinary: Denies: urgency, dysuria Musculoskeletal: Denies: back pain, arthralgia Integumentary: Denies: erythema, rash Neurological: Denies: headache, numbness Psychiatric: Denies: anxiety, depression Endocrine: Denies: fatigue, heat or cold intolerance Hematological/Lymphatic: Denies: easy bleeding, easy bruising Allergic/Immunologic: Denies: facial swelling, urticaria PFSH Patient Stated Medical History Congestive Heart Failure Yes Hypertension Yes Bronchitis Yes: PER H&P Other Respiratory Yes: EMPHYSEMA Other GI Yes: HEMORRHOIDS Other Yes: left kidney mass Osteoarthritis Yes: BILAT SHOULDERS Other Musculoskeletal Yes Cellulitis Yes Blood Transfusions Yes Depression Yes Clinic Medical History Lower extremity cellulitis (Acute Medical) Homelessness (Acute Social Hx) Hoarding behavior (Acute Medical) Obsessive compulsive disorder (Acute Medical) Diastolic CHF (Acute Medical) COPD (chronic obstructive pulmonary disease) (Acute Medical) HTN (hypertension) (Acute Medical) HLD (hyperlipidemia) (Acute Medical) Coronary artery disease involving autologous vein bypass graft (Chronic Medical) Mitral regurgitation (Chronic Medical) Pulmonary hypertension (Chronic Medical) Surgical History: CABG 2012 Family History: Reviewed and Non-contributory. - Social History Smoking status: Never smoker Substance use type: does not use Alcohol intake frequency: does not drink Current residence: Homeless Physical Exam - Limitations Limitations: no limitations - General General appearance: alert, in no apparent distress - Normal Exams: Head:: Normocephalic without trauma Eyes:: Pupils are PERRLA w/ EOMI, No scleral icterus, irritation, or foreign bodies noted ENMT:: No facial trauma, nasal exudates, pharyngeal erythema, or exudates are noted Dental: No fractured, loose, or missing teeth noted Neck:: Full range of motion, without adenopathy, JVD, bruits or thyromegaly Chest/Respirations:: with good airflow (Faint bibasilar crackles. ), and symmetry bilaterally Cardiovascular:: Regular rate and rhythm, without murmur or gallop, Pulses 2+ all extremities, capillary refill, <2 seconds all extremities Abdomen:: Bowel sounds positive, soft, non-tender, non-distended, no hepatosplenomegaly, masses or bruits noted Lymphatic:: No lymphadenopathy, or lymphedema noted Musculoskeletal:: No tenderness, or deformity noted, good range of motion, all extremities Integumentary:: No rashes, hives, or bruising noted, hair and nails, without abnormality Neurological:: Patient is alert, and oriented, cranial nerves, motor/sensory/ cerebellar, exams w/o gross deficits, to observation Psychiatric:: Patient exhibits, appropriate attention, emotion and affect Course Vital Signs Temperature 97.6 F 08/28/17 10:43 Pulse Rate 59 L 08/28/17 10:43 Respiratory Rate 24 08/28/17 10:43 Blood Pressure 173/81 H 08/28/17 10:43 Pulse Oximetry 95 08/28/17 10:43 Temperature 97.6 F 08/30/17 23:33 Pulse Rate 63 08/30/17 23:33 Respiratory Rate 16 08/30/17 23:33 Blood Pressure 148/70 H 08/30/17 23:33 Pulse Oximetry 96 08/30/17 23:33 Medical Decision Making - MDM Narrative Medical decision making narrative: Labs/imaging were discussed in detail with the patient and questions are answered. Patient is given 324 mg of aspirin by mouth 1 in the emergency Department. Patient is given Lasix 40 mg IV 1 in the emergency Department. Patient's EKG is similar to prior exam. Patient remains pain-free during his emergency department stay. Patient is admitted to the service of Dr. Pool who comes to the emergency department to evaluate the patient. Patient is admitted to the hospital in improved condition. Accepting physician is in agreement with the current plan of management. No further orders. - Differential Diagnosis CHF, COPD, URI, Metabolic issue, CP - Lab Data Result diagrams: 08/30/17 04:14 08/30/17 04:14 Lab Results 08/28/17 08/28/17 08/29/17 Range/Units 11:05 11:05 04:13 WBC 7.0 7.2 (4.5-11.0) T/MM3 RBC 3.97 L 3.91 L (4.50-5.90) M/MM3 Hgb 11.5 L 11.4 L (13.5-17.5) GM/DL Hct 36.6 L 35.7 L (41-53) % MCV 92.2 91.3 (80-100) UM3 MCH 29.0 29.2 (26-34) UUG MCHC 31.4 31.9 (31-37) GM/DL RDW Std Deviation 47.8 47.1 (36.9-50.2) FL Plt Count 150 169 (130-400) T/MM3 MPV 9.0 L 9.5 (9.4-12.4) UM3 Immature Gran % (Auto) 0.1 0.1 (0.0-0.5) % Neut % (Auto) 79.3 H 72.2 H (33-66) % Lymph % (Auto) 10.3 L 14.4 L (23-45) % [place] % (Auto) 8.6 10.8 H (0-9.0) % Eos % (Auto) 1.1 2.1 (0-4) % Baso % (Auto) 0.6 0.4 (0-2) % Neut # (Auto) 5.5 5.2 (1.8-7.7) T/MM3 Lymph # (Auto) 0.7 L 1.0 (1-4.8) T/MM3 [place] # (Auto) 0.6 0.8 (0-0.8) T/MM3 Eos # (Auto) 0.1 0.2 (0-0.5) T/MM3 Baso # (Auto) 0.0 0.0 (0-0.2) T/MM3 Abs Immat Gran (auto) 0.01 0.01 (0.00-0.03) T/MM3 Turbidity < 20 (0-20) Sodium 140 (134-144) MEQ/L Potassium 4.9 (3.6-5) MEQ/L Chloride 105 (98-107) MEQ/L Carbon Dioxide 25 (22-30) MEQ/L Anion Gap 10 (5-15) MEQ/L BUN 22.0 H (9-20) MG/DL Creatinine 1.5 (0.8-1.5) MG/DL GFR Calculation 46 BUN/Creatinine Ratio 15 (6-26) RATIO Glucose 116 H (75-110) MG/DL Calculated Osmolality 273 (261-280) MOSM/KG Calcium 9.1 (8.4-10.2) MG/DL Magnesium (1.6-2.3) MG/DL Total Bilirubin 0.60 (0.20-1.30) MG/DL Icterus Index < 2 (0-7) AST 38 (17-59) U/L ALT 60 (21-72) U/L Alkaline Phosphatase 60 (38-126) U/L Troponin I < 0.012 (0-0.12) ng/ml B-Natriuretic Peptide 2300 H (0-175) pg/mL Total Protein 6.9 (6.3-8.2) G/DL Albumin 3.9 (3.5-5.0) G/DL Globulin 3.0 (2.4-3.6) G/DL Albumin/Globulin Ratio 1.3 (1.1-2.2) RATIO Specimen Hemolysis < 15 (0-25) 08/29/17 08/30/17 08/30/17 Range/Units 04:13 04:14 04:14 WBC 7.7 (4.5-11.0) T/MM3 RBC 4.10 L (4.50-5.90) M/MM3 Hgb 12.0 L (13.5-17.5) GM/DL Hct 37.4 L (41-53) % MCV 91.2 (80-100) UM3 MCH 29.3 (26-34) UUG MCHC 32.1 (31-37) GM/DL RDW Std Deviation 47.5 (36.9-50.2) FL Plt Count 169 (130-400) T/MM3 MPV 9.3 L (9.4-12.4) UM3 Immature Gran % (Auto) 0.3 (0.0-0.5) % Neut % (Auto) 70.8 H (33-66) % Lymph % (Auto) 15.2 L (23-45) % [place] % (Auto) 11.0 H (0-9.0) % Eos % (Auto) 2.2 (0-4) % Baso % (Auto) 0.5 (0-2) % Neut # (Auto) 5.5 (1.8-7.7) T/MM3 Lymph # (Auto) 1.2 (1-4.8) T/MM3 [place] # (Auto) 0.9 H (0-0.8) T/MM3 Eos # (Auto) 0.2 (0-0.5) T/MM3 Baso # (Auto) 0.0 (0-0.2) T/MM3 Abs Immat Gran (auto) 0.02 (0.00-0.03) T/MM3 Turbidity < 20 < 20 (0-20) Sodium 141 139 (134-144) MEQ/L Potassium 4.2 4.1 (3.6-5) MEQ/L Chloride 104 101 (98-107) MEQ/L Carbon Dioxide 27 28 (22-30) MEQ/L Anion Gap 10 10 (5-15) MEQ/L BUN 28.0 H 35.0 H (9-20) MG/DL Creatinine 1.7 H D 1.8 H (0.8-1.5) MG/DL GFR Calculation 39 37 BUN/Creatinine Ratio 17 19 (6-26) RATIO Glucose 114 H 117 H (75-110) MG/DL Calculated Osmolality 278 277 (261-280) MOSM/KG Calcium 9.4 9.4 (8.4-10.2) MG/DL Magnesium 2.2 2.2 (1.6-2.3) MG/DL Total Bilirubin (0.20-1.30) MG/DL Icterus Index < 2 < 2 (0-7) AST (17-59) U/L ALT (21-72) U/L Alkaline Phosphatase (38-126) U/L Troponin I (0-0.12) ng/ml B-Natriuretic Peptide 1290 H (0-175) pg/mL Total Protein (6.3-8.2) G/DL Albumin (3.5-5.0) G/DL Globulin (2.4-3.6) G/DL Albumin/Globulin Ratio (1.1-2.2) RATIO Specimen Hemolysis < 15 < 15 (0-25) - Radiology Data CXR - Mild to moderate pulmonary edema. - EKG Data EKG #1 EKG results narrative: Sinus Rhythm. 60 bpm. No STEMI. Unchanged from 01/31/15. Disposition Clinical Impression: CHF EXACERBATION Disposition: To [facility] Condition: Stable Time of Disposition: 12:30 (Admit. Dr. Pool. ) - Seen By: physician
--- NOTE | 2017-08-28 11:50 | XRay Report ---
Indication: sob PROCEDURE: XR chest 1V: Encounter: Initial Comparison: January 31, 2015 Findings: Increasing pulmonary vascular congestion. Chronic areas of scarring in the lung bases. No pleural effusion or pneumothorax. Cardiac silhouette remains severely enlarged. Prior CABG. Mediastinal contours are stable. Pulmonary vascularity is more prominent. Old rotator cuff tears with degenerative change in the shoulders and spine. Impression: Mild to moderate pulmonary edema. .
[2017-08-28] MEDS ORDERED: FUROSEMIDE 40 MG/4 ML INJECTION IVP ONE (12:53)
[2017-08-28] MEDS ORDERED: ASPIRIN 81 MG CHEWABLE TABLET PO ONE (12:53)
[2017-08-28 14:36] VITALS: BMI 40.7
[2017-08-28] MEDS ORDERED: SALINE FLUSH 10ml SYRINGE IV PRN (15:59)
--- NOTE | 2017-08-28 19:52 | Cardiology History & Physical ---
History of Present Illness Chief complaint: SOA HPI: Renato is a 77 year old male who presented to the ED for evaluation due to difficulty breathing. He reports this has been ongoing for weeks and worsened today. He reportedly complained of an abnormal sensation in his chest which lasted for about 10 minutes and is gone now. CXR revealed mild to moderate pulmonary edema, BNP 2300. Dr. Pool was called to evaluate the patient while in the ED. Last echo was performed 06/2017 showed EF 60%, Biatrial dilation, LVH, moderate MR, mild AI, mild TR, PAP 49. He denies recent illness, fever, chills, sore throat, cough. N/V/D, or dysuria Review of Systems - Constitutional Constitutional: Present: as per HPI - EENMT Eyes: Absent: change in vision Balance: Absent: vertigo Mouth/Throat: Absent: sore throat - Cardiovascular Cardiovascular: Present: chest pain, dyspnea on exertion, orthopnea, edema. Absent: palpitations, syncope - Respiratory Respiratory: Present: dyspnea, dyspnea on exertion. Absent: cough - Gastrointestinal Gastrointestinal: Absent: constipation, diarrhea, nausea, vomiting - Genitourinary Genitourinary: Absent: dysuria - Integumentary/Breasts Integumentary: Absent: rash - Neurological Neurological: Absent: dizziness - Endocrine Endocrine: Absent: palpitations PFSH Patient Stated Medical History Congestive Heart Failure Yes Hypertension Yes Bronchitis Yes: PER H&P Other Respiratory Yes: EMPHYSEMA Other GI Yes: HEMORRHOIDS Other Yes: left kidney mass Osteoarthritis Yes: BILAT SHOULDERS Other Musculoskeletal Yes Cellulitis Yes Blood Transfusions Yes Depression Yes Clinic Medical History Lower extremity cellulitis (Acute Medical) Homelessness (Acute Social Hx) Hoarding behavior (Acute Medical) Obsessive compulsive disorder (Acute Medical) Surgical History: CABG 2012 Family History: Denies family history of CAD, PR, CHF - Social History Smoking status: Never smoker Substance use type: does not use Alcohol intake frequency: does not drink Housing: homeless Household members: none Current occupational status: disabled Current residence: Homeless Medications Home Medications Medication Instructions Recorded Confirmed Type Atenolol 25 mg PO HS #0 03/07/12 08/28/17 History Aspirin [Adult Low Dose Aspirin EC] 81 mg PO HS 06/18/17 08/28/17 History Calcium Polycarbophil [Fiber] 1,250 mg PO HS 06/18/17 08/28/17 History Citalopram [Celexa] 20 mg PO HS 06/18/17 08/28/17 History Lovastatin [Mevacor] 40 mg PO HS 06/18/17 08/28/17 History [place]-3 Acid Ethyl Esters [Lovaza] 2 gm PO HS 06/18/17 08/28/17 History Cholecalciferol (Vitamin D3) 1,000 unit PO HS 08/28/17 08/28/17 History [Vitamin D3] Diphenhydramine Cream [Benadryl 1 applicatio TOP BID PRN 08/28/17 08/28/17 History Extra Strength Cream] Fluticasone/Salmeterol [Airduo 1 each IH HS 08/28/17 08/28/17 History Respiclick 113-14 Mcg] Miconazole Nitrate [Antifungal 1 applicatio TP BID PRN 08/28/17 08/28/17 History Cream] Vitamin B Complex Vit C No.4 150 mg PO HS 08/28/17 08/28/17 History [Super B Complex] Allergies Allergy/AdvReac Type Severity Reaction Status Date / Time decongestant AdvReac Uncoded 06/18/17 17:13 Exam Vital signs: Temperature 98.2 F 08/28/17 14:36 Pulse Rate 82 08/28/17 16:01 Respiratory Rate 18 08/28/17 14:36 Blood Pressure 171/75 H 08/28/17 14:36 Pulse Oximetry 97 08/28/17 14:36 - Constitutional mild distress, obese, cooperative - Routine HEENT Exam Head: Present: normocephalic ENT: Present: mucous membranes moist - Routine Neck Exam Present: JVD. Absent: carotid bruit - Routine Chest/Breast/Axilla Exam Chest wall: Absent: tenderness - Routine Respiratory Exam Present: decreased breath sounds, rales (bibasilar ). Absent: CTA bilaterally - Routine Cardiovascular Exam Present: no murmur, bradycardia - Routine Abdominal Exam Present: soft, normoactive bowel sounds - Routine Extremities Exam Present: edema (bilateral 2+) - Routine Skin Exam Present: intact, dry, warm - Routine Neurological Exam Present: alert, oriented X3 - Routine Psychiatric Exam Present: normal affect, normal thought process Results 08/30/17 04:14 08/31/17 04:11 Intake and Output 08/28/17 08/28/17 08/28/17 06:59 14:59 22:59 Output Total 510 / 510 Balance -510 / -510 Output: Urine 510 / 510 Other: Urine Appearance Clear Urine Color Yellow Weight 259 lb 14.8 oz Patient Weight 08/29/17 06:59 Weight 259 lb 14.8 oz - Imaging and Cardiology Echo: report reviewed Imaging & Cardiology Narrative: 08/28/17 19:52 Date of Exam: 06/24/17 Type of Exam(s): US echo doppler complete DATE OF PROCEDURE June 24, [address] Javi Jones This is a two-dimensional echo with spectral Doppler, color-flow and M-mode. Left atrium is dilated. Left ventricle end-diastolic dimension is normal. Left ventricle wall thickness is increased. LV systolic function is normal with ejection fraction of 60%. Right atrium is dilated. Right ventricle is normal. Aortic root dimension is normal. Mitral valve annulus is calcified. Mitral valve leaflets are normal with moderate mitral regurgitation. Aortic valve is a trileaflet structure with no stenosis. Mild aortic insufficiency is present. Tricuspid valve shows mild tricuspid regurgitation with moderate pulmonary hypertension with estimated pulmonary artery systolic pressure of 49. Pulmonary valve shows trace of pulmonary insufficiency. There is no pericardial effusion. IMPRESSION 1. Normal LV systolic function with ejection fraction of 60%. 2. Biatrial dilation. 3. Left ventricular hypertrophy. 4. Mitral annulus calcification with moderate mitral regurgitation. 5. Mild aortic insufficiency. 6. Mild tricuspid regurgitation with moderate pulmonary hypertension with estimated pulmonary artery systolic pressure of 49. 7. Trace of pulmonary insufficiency. 08/28/17 20:00 Date of Exam: 08/28/17 Ordering Provider: Yuri Johnson DO Type of Exam(s): XR chest 1V Reason for Exam(s): sob Indication: sob PROCEDURE: XR chest 1V: Encounter: Initial Comparison: January 31, 2015 Findings: Increasing pulmonary vascular congestion. Chronic areas of scarring in the lung bases. No pleural effusion or pneumothorax. Cardiac silhouette remains severely enlarged. Prior CABG. Mediastinal contours are stable. Pulmonary vascularity is more prominent. Old rotator cuff tears with degenerative change in the shoulders and spine. Impression: Mild to moderate pulmonary edema. EKG interpretations - EKG EKG results cardiology: sinus rhythm - Blocks, axis, hypertrophy, ST abn AV and intraventricular conduction: 1 AV block Repolarization changes or abnormalities: nonspecific abnormality, ST segment, and/or T wave Hospital Course This is a general summary of the patient's hospital course. For more details refer to the complete medical record. Time spent with patient: 25 - 35 minutes DVT Prophylaxis: Lovenox Assessment and Plan - Attestation Attestation Narrative: 09/02/17 16:02 Recommendation After examining the patient I agree with the above assessment. I am involved in the formulation of the patient's plan of care. - Assessment and Plan (1) Diastolic CHF Status: Acute EF 60% - Bumex 2mg IV Q6H for diuresis - Replace potassium with 20meq TID with meals - Monitor renal and electrolytes (2) COPD (chronic obstructive pulmonary disease) Status: Chronic Continue home inhaler (3) HTN (hypertension) Status: Chronic Continue Atenolol (4) HLD (hyperlipidemia) Status: Chronic
[2017-08-28] MEDS ORDERED: MICONAZOLE 2% TP PRN (20:37)
[2017-08-28] MEDS: --POM--ASPIRIN *EC* 81 MG TABLET PO SCH (21:19)
[2017-08-28] MEDS: ATENOLOL 25 MG PO SCH (21:19)
[2017-08-28] MEDS: --POM--CITALOPRAM 20 MG TABLET PO SCH (21:20)
[2017-08-28] MEDS: ENOXAPARIN 40 MG/0.4 ML INJECTION SQ SCH (23:18)
[2017-08-28] MEDS: LOVASTATIN 20 MG PO SCH (23:18)
[2017-08-29] MEDS: ENOXAPARIN 40 MG/0.4 ML INJECTION SQ SCH (10:11)
--- NOTE | 2017-08-29 11:53 | Cardiology Progress Note ---
<Koki Jefferson - Last Filed: 08/29/17 13:45> Subjective Principal diagnosis: Acute diastolic heart failure Interval history: Pt is up ambulating in his room without assist. Able to toilet independently. He reports increase in ease of breathing, LE edema mildly improved. Educated diastolic/right heart failure vs. systolic failure at length; importance of low Na diet and fluid restriction. Exam Vital signs: Temperature 96.0 F L 08/29/17 07:18 Pulse Rate 61 08/29/17 07:18 Respiratory Rate 18 08/29/17 07:18 Blood Pressure 138/71 08/29/17 07:18 Pulse Oximetry 94 08/29/17 07:18 - Constitutional no acute distress - Routine HEENT Exam Head: Present: normocephalic, atraumatic Eye: Present: PERRL ENT: Present: mucous membranes moist - Routine Neck Exam Absent: JVD, carotid bruit - Routine Chest/Breast/Axilla Exam Chest wall: Absent: tenderness - Routine Respiratory Exam Present: CTA bilaterally, diminished air movement. Absent: dyspnea - Routine Cardiovascular Exam Present: RRR, no murmur - Routine Abdominal Exam Present: soft, normoactive bowel sounds, distended - Routine Extremities Exam Present: edema (anasarca, edema to buttock fold bilaterally) - Routine Back/Spine/Pelvis Exam Back/Spine: Present: full ROM - Routine Skin Exam Present: erythema (bilateral LE, lesion of left anterior calf) - Routine Neurological Exam Present: alert, oriented X3 - Routine Psychiatric Exam Present: normal affect, cooperative Results 08/29/17 04:13 08/29/17 04:13 CBC 08/29/17 Range/Units 04:13 WBC 7.2 (4.5-11.0) T/MM3 RBC 3.91 L (4.50-5.90) M/MM3 Hgb 11.4 L (13.5-17.5) GM/DL Hct 35.7 L (41-53) % Plt Count 169 (130-400) T/MM3 Neut # (Auto) 5.2 (1.8-7.7) T/MM3 Lymph # (Auto) 1.0 (1-4.8) T/MM3 [place] # (Auto) 0.8 (0-0.8) T/MM3 Eos # (Auto) 0.2 (0-0.5) T/MM3 Baso # (Auto) 0.0 (0-0.2) T/MM3 Comprehensive Metabolic Panel 08/29/17 Range/Units 04:13 Sodium 141 (134-144) MEQ/L Potassium 4.2 (3.6-5) MEQ/L Chloride 104 (98-107) MEQ/L Carbon Dioxide 27 (22-30) MEQ/L BUN 28.0 H (9-20) MG/DL Creatinine 1.7 H D (0.8-1.5) MG/DL Glucose 114 H (75-110) MG/DL Calcium 9.4 (8.4-10.2) MG/DL Intake and Output 08/28/17 08/29/17 08/29/17 22:59 06:59 14:59 Intake Total 357 / 357 Output Total 1210 / 1210 2630 / 2630 925 / 925 Balance -1210 / -1210 -2273 / -2273 -925 / -925 Intake: Oral 357 / 357 Output: Urine 1210 / 1210 2630 / 2630 925 / 925 Other: Urine Appearance Clear Clear Clear Urine Color Yellow Yellow Yellow Urine Odor Normal Normal Weight 113.2 kg Patient Weight 08/30/17 06:59 Weight 113.2 kg - Imaging and Cardiology EKG results: image reviewed Imaging & Cardiology Narrative: Last echo was performed 06/2017 showed EF 60%, Biatrial dilation, LVH, moderate MR, mild AI, mild TR, PAP 49. 08/29/17 11:54 Assessment and Plan - Assessment and Plan (1) Diastolic CHF Status: Acute (2) COPD (chronic obstructive pulmonary disease) Status: Acute (3) HTN (hypertension) Status: Acute (4) HLD (hyperlipidemia) Status: Acute (5) Coronary artery disease involving autologous vein bypass graft Status: Chronic - Assessment and Plan Acute Diastolic Heart Failure CAD, s/p CABG 2002 Chronic Kidney Disease, follows with Angelo Owen HTN HLD Pulmonary Edema Anasarca LE cellulitis Diuresed 3.5L in last 24 hrs, down 10lbs. Continue Bumex 2mg IV for one additional dose at 4pm, then change to Bumex 2mg PO BID Saturday AM. Recheck lytes and renal function in AM. Fluid restriction. Vitals stable, tele SR. Will recheck Chest Xray in AM. Pt educated at length regarding lifestyle modifications. Over night pulse ox tonight, suspect underlying sleep apnea. Hospital Course Summary Disclaimer: The visit summary below is not to be considered part of the above Progress Note. <Raghav Pool - Last Filed: 09/03/17 07:39> Exam Vital signs: Temperature 96 F L 08/31/17 08:00 Pulse Rate 58 L 08/31/17 08:00 Respiratory Rate 18 08/31/17 08:00 Blood Pressure 132/66 08/31/17 08:00 Pulse Oximetry 95 08/31/17 08:00 Results 08/30/17 04:14 08/31/17 04:11 Assessment and Plan - Assessment and Plan (1) Diastolic CHF Status: Acute (2) COPD (chronic obstructive pulmonary disease) Status: Chronic (3) HTN (hypertension) Status: Chronic (4) HLD (hyperlipidemia) Status: Chronic - Attestation Attestation Narrative: 09/03/17 07:39 Recommendation After examining the patient I agree with the above assessment. I am involved in the formulation of the patient's plan of care. Hospital Course Summary Disclaimer: The visit summary below is not to be considered part of the above Progress Note. Addendum entered and electronically signed by Koki Jefferson APRN 08/30/17 16:45: This patient was seen and examined by Koki Jefferson APRN
[2017-08-29] MEDS: LOVASTATIN 20 MG PO SCH (22:49)
[2017-08-29] MEDS: --POM--ASPIRIN *EC* 81 MG TABLET PO SCH (22:50)
[2017-08-29] MEDS: ATENOLOL 25 MG PO SCH (22:50)
[2017-08-29] MEDS: --POM--CITALOPRAM 20 MG TABLET PO SCH (22:51)
[2017-08-29] MEDS: SALMETEROL PO SCH (23:04)
[2017-08-29] MEDS: FLUTICASONE PO SCH (23:04)
--- NOTE | 2017-08-30 09:53 | XRay Report ---
INDICATION: pulmonary edema PROCEDURE: CHEST 2-VIEWS UPRIGHT (PA & LAT) Encounter: Initial COMPARISON: August 28, 2017 FINDINGS: Pulmonary edema has improved. There is linear atelectasis or scarring in the left lower lobe near the costophrenic angle. Lungs are otherwise clear. No pneumothorax. Trace pleural effusions. Heart size and mediastinal contours are stable. Impression: Improving pulmonary edema with trace effusions and left basilar atelectasis. .
[2017-08-30] MEDS: FLUTICASONE PO SCH (10:05)
[2017-08-30] MEDS: SALMETEROL PO SCH (10:05)
[2017-08-30] MEDS: BUMETANIDE 1 MG TABLET PO SCH ×2 (10:11→13:42)
[2017-08-30] MEDS: ENOXAPARIN 40 MG/0.4 ML INJECTION SQ SCH (10:12)
--- NOTE | 2017-08-30 16:45 | Cardiology Progress Note ---
<Koki Jefferson - Last Filed: 08/31/17 11:24> Subjective Principal diagnosis: Acute diastolic heart failure Interval history: Pt is up ambulating in his room without assist. Able to toilet independently. He reports significatn increase in ease of breathing, states "this is the best I 've breathed for 3 months". LE edema mildly improved. Discussed will keep him until am and recheck renal function, likely send home in AM on PO diuretics, with f/u of BMP in one week. Exam Vital signs: Temperature 96.6 F L 08/30/17 07:37 Pulse Rate 64 08/30/17 16:00 Respiratory Rate 16 08/30/17 10:05 Blood Pressure 140/65 H 08/30/17 07:37 Pulse Oximetry 93 08/30/17 07:37 - Constitutional no acute distress - Routine HEENT Exam Head: Present: normocephalic, atraumatic Eye: Present: PERRL ENT: Present: mucous membranes moist - Routine Neck Exam Present: carotid bruit (left carotid bruit). Absent: JVD - Routine Respiratory Exam Present: CTA bilaterally. Absent: rales, rhonchi, wheezes - Routine Cardiovascular Exam Present: RRR, murmur (2/6). Absent: JVD - Routine Abdominal Exam Present: soft, normoactive bowel sounds, non tender, distended - Routine Extremities Exam Present: edema (2+ pitting bilateral LE) - Routine Skin Exam Present: intact, erythema (bilateral LE) - Routine Neurological Exam Present: alert, oriented X3 - Routine Psychiatric Exam Present: normal affect, normal thought process, cooperative Results 08/30/17 04:14 08/31/17 04:11 Intake and Output 08/30/17 08/30/17 08/30/17 06:59 14:59 22:59 Intake Total 700 / 700 450 / 450 Output Total 500 / 500 1200 / 1200 Balance 200 / 200 -750 / -750 Intake: Oral 700 / 700 450 / 450 Output: Urine 500 / 500 1200 / 1200 Other: Urine Appearance Clear Clear Urine Color Yellow Straw Urine Odor Normal Laboratory Results - last 24 hr 08/30/17 08/30/17 04:14 04:14 WBC 7.7 RBC 4.10 L Hgb 12.0 L Hct 37.4 L MCV 91.2 MCH 29.3 MCHC 32.1 RDW Std Deviation 47.5 Plt Count 169 MPV 9.3 L Immature Gran % (Auto) 0.3 Neut % (Auto) 70.8 H Lymph % (Auto) 15.2 L [place] % (Auto) 11.0 H Eos % (Auto) 2.2 Baso % (Auto) 0.5 Neut # (Auto) 5.5 Lymph # (Auto) 1.2 [place] # (Auto) 0.9 H Eos # (Auto) 0.2 Baso # (Auto) 0.0 Abs Immat Gran (auto) 0.02 Turbidity < 20 Sodium 139 Potassium 4.1 Chloride 101 Carbon Dioxide 28 Anion Gap 10 BUN 35.0 H Creatinine 1.8 H GFR Calculation 37 BUN/Creatinine Ratio 19 Glucose 117 H Calculated Osmolality 277 Calcium 9.4 Magnesium 2.2 Icterus Index < 2 B-Natriuretic Peptide 1290 H Specimen Hemolysis < 15 - Imaging and Cardiology Echo: report reviewed Imaging & Cardiology Narrative: DATE OF PROCEDURE June 24, [address] Javi Jones This is a two-dimensional echo with spectral Doppler, color-flow and M-mode. Left atrium is dilated. Left ventricle end-diastolic dimension is normal. Left ventricle wall thickness is increased. LV systolic function is normal with ejection fraction of 60%. Right atrium is dilated. Right ventricle is normal. Aortic root dimension is normal. Mitral valve annulus is calcified. Mitral valve leaflets are normal with moderate mitral regurgitation. Aortic valve is a trileaflet structure with no stenosis. Mild aortic insufficiency is present. Tricuspid valve shows mild tricuspid regurgitation with moderate pulmonary hypertension with estimated pulmonary artery systolic pressure of 49. Pulmonary valve shows trace of pulmonary insufficiency. There is no pericardial effusion. IMPRESSION 1. Normal LV systolic function with ejection fraction of 60%. 2. Biatrial dilation. 3. Left ventricular hypertrophy. 4. Mitral annulus calcification with moderate mitral regurgitation. 5. Mild aortic insufficiency. 6. Mild tricuspid regurgitation with moderate pulmonary hypertension with estimated pulmonary artery systolic pressure of 49. 7. Trace of pulmonary insufficiency. 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 Cr bumped from 1.07 to 1.8. Will reduce bumex to 1mg po. CxR shows improving pulmonary edema. BP running slightly up, continue to watch while diuresing, may benefit from increase antihypertensive medical therapy. Continue ASA 81mg daily, lovastatin. Over night pulse ox tonight please, suspect underlying sleep apnea and nocturnal hypoxia. Pt can use bedside urinal. Tele stable SR, no ectopy. Lovenox DVT prophylaxis. Hospital Course Summary Disclaimer: The visit summary below is not to be considered part of the above Progress Note. <Raghav Pool - Last Filed: 09/03/17 07:41> Exam Vital signs: Temperature 96 F L 08/31/17 08:00 Pulse Rate 58 L 08/31/17 08:00 Respiratory Rate 18 08/31/17 08:00 Blood Pressure 132/66 08/31/17 08:00 Pulse Oximetry 95 08/31/17 08:00 Results 08/30/17 04:14 08/31/17 04:11 Assessment and Plan - Assessment and Plan (1) Diastolic CHF Status: Acute (2) COPD (chronic obstructive pulmonary disease) Status: Chronic (3) HTN (hypertension) Status: Chronic (4) HLD (hyperlipidemia) Status: Chronic - Attestation Attestation Narrative: 09/03/17 07:41 Recommendation After examining the patient I agree with the above assessment. I am involved in the formulation of the patient's plan of care. Hospital Course Summary Disclaimer: The visit summary below is not to be considered part of the above Progress Note.
[2017-08-30] MEDS: LOVASTATIN 20 MG PO SCH (21:05)
[2017-08-30] MEDS: --POM--ASPIRIN *EC* 81 MG TABLET PO SCH (21:06)
[2017-08-30] MEDS: --POM--CITALOPRAM 20 MG TABLET PO SCH (21:06)
[2017-08-30] MEDS: ATENOLOL 25 MG PO SCH (21:06)
[2017-08-31] MEDS ORDERED: BUMETANIDE 1 MG TABLET PO SCH (09:00)
[2017-08-31] MEDS: ENOXAPARIN 40 MG/0.4 ML INJECTION SQ SCH (09:31)
[2017-08-31 09:37] VITALS: BP 132/66; RESP 18; TEMP 96; O2SAT 95
--- NOTE | 2017-08-31 11:11 | Discharge Summary ---
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 Status: Chronic (6) Mitral regurgitation Status: Chronic (7) Pulmonary hypertension Status: Chronic Acute on chronic diastolic heart failure CAD CKD COPD HTN HLD PLM HTN MR - Laboratory Labs: 08/31/17 04:11 Laboratory Tests 08/28/17 08/28/17 08/29/17 11:05 11:05 04:13 WBC 7.0 7.2 RBC 3.97 L 3.91 L Hgb 11.5 L 11.4 L Hct 36.6 L 35.7 L MCV 92.2 91.3 MCH 29.0 29.2 MCHC 31.4 31.9 RDW Std Deviation 47.8 47.1 Plt Count 150 169 MPV 9.0 L 9.5 Immature Gran % (Auto) 0.1 0.1 Neut % (Auto) 79.3 H 72.2 H Lymph % (Auto) 10.3 L 14.4 L [place] % (Auto) 8.6 10.8 H Eos % (Auto) 1.1 2.1 Baso % (Auto) 0.6 0.4 Neut # (Auto) 5.5 5.2 Lymph # (Auto) 0.7 L 1.0 [place] # (Auto) 0.6 0.8 Eos # (Auto) 0.1 0.2 Baso # (Auto) 0.0 0.0 Abs Immat Gran (auto) 0.01 0.01 Turbidity < 20 Sodium 140 Potassium 4.9 Chloride 105 Carbon Dioxide 25 Anion Gap 10 BUN 22.0 H Creatinine 1.5 GFR Calculation 46 BUN/Creatinine Ratio 15 Glucose 116 H Calculated Osmolality 273 Calcium 9.1 Magnesium Total Bilirubin 0.60 Icterus Index < 2 AST 38 ALT 60 Alkaline Phosphatase 60 Troponin I < 0.012 B-Natriuretic Peptide 2300 H Total Protein 6.9 Albumin 3.9 Globulin 3.0 Albumin/Globulin Ratio 1.3 Specimen Hemolysis < 15 08/29/17 08/30/17 08/30/17 04:13 04:14 04:14 WBC 7.7 RBC 4.10 L Hgb 12.0 L Hct 37.4 L MCV 91.2 MCH 29.3 MCHC 32.1 RDW Std Deviation 47.5 Plt Count 169 MPV 9.3 L Immature Gran % (Auto) 0.3 Neut % (Auto) 70.8 H Lymph % (Auto) 15.2 L [place] % (Auto) 11.0 H Eos % (Auto) 2.2 Baso % (Auto) 0.5 Neut # (Auto) 5.5 Lymph # (Auto) 1.2 [place] # (Auto) 0.9 H Eos # (Auto) 0.2 Baso # (Auto) 0.0 Abs Immat Gran (auto) 0.02 Turbidity < 20 < 20 Sodium 141 139 Potassium 4.2 4.1 Chloride 104 101 Carbon Dioxide 27 28 Anion Gap 10 10 BUN 28.0 H 35.0 H Creatinine 1.7 H D 1.8 H GFR Calculation 39 37 BUN/Creatinine Ratio 17 19 Glucose 114 H 117 H Calculated Osmolality 278 277 Calcium 9.4 9.4 Magnesium 2.2 2.2 Total Bilirubin Icterus Index < 2 < 2 AST ALT Alkaline Phosphatase Troponin I B-Natriuretic Peptide 1290 H Total Protein Albumin Globulin Albumin/Globulin Ratio Specimen Hemolysis < 15 < 15 08/31/17 04:11 WBC RBC Hgb Hct MCV MCH MCHC RDW Std Deviation Plt Count MPV Immature Gran % (Auto) Neut % (Auto) Lymph % (Auto) [place] % (Auto) Eos % (Auto) Baso % (Auto) Neut # (Auto) Lymph # (Auto) [place] # (Auto) Eos # (Auto) Baso # (Auto) Abs Immat Gran (auto) Turbidity < 20 Sodium 138 Potassium 4.6 Chloride 99 Carbon Dioxide 29 Anion Gap 10 BUN 40.0 H Creatinine 1.8 H GFR Calculation 37 BUN/Creatinine Ratio 22 Glucose 112 H Calculated Osmolality 277 Calcium 9.2 Magnesium Total Bilirubin Icterus Index < 2 AST ALT Alkaline Phosphatase Troponin I B-Natriuretic Peptide Total Protein Albumin Globulin Albumin/Globulin Ratio Specimen Hemolysis < 15 - Radiology Radiology: Chest Xrays: Findings: Increasing pulmonary vascular congestion. Chronic areas of scarring in the lung bases. No pleural effusion or pneumothorax. Cardiac silhouette remains severely enlarged. Prior CABG. Mediastinal contours are stable. Pulmonary vascularity is more prominent. Old rotator cuff tears with degenerative change in the shoulders and spine. Impression: Mild to moderate pulmonary edema. . FINDINGS: Pulmonary edema has improved. There is linear atelectasis or scarring in the left lower lobe near the costophrenic angle. Lungs are otherwise clear. No pneumothorax. Trace pleural effusions. Heart size and mediastinal contours are stable. Impression: Improving pulmonary edema with trace effusions and left basilar atelectasis. . History of Present Illness HPI: 08/31/17 11:17 Renato is a 77 year old male who presented to the ED for evaluation due to difficulty breathing. He reports this has been ongoing for weeks and worsened today. He reportedly complained of an abnormal sensation in his chest which lasted for about 10 minutes and is gone now. CXR revealed mild to moderate pulmonary edema, BNP 2300. Dr. Pool was called to evaluate the patient while in the ED. Last echo was performed 06/2017 showed EF 60%, Biatrial dilation, LVH, moderate MR, mild AI, mild TR, PAP 49. He denies recent illness, fever, chills, sore throat, cough. N/V/D, or dysuria Hospital Course This is a general summary of the patient's hospital course. For more details refer to the complete medical record. Acute on Chronic Diastolic Heart Failure CAD, s/p CABG 2002 Moderate MR Pulmonary Hypertension, PAP 48mmHg 06/24/2017 Chronic Kidney Disease, follows with Angelo Owen HTN HLD Pulmonary Edema Anasarca LE cellulitis Pt was placed on IV bumex 2mg Q 6 hours. He diuresed a total of 6L since admission, down 10kg since admission. Lytes remained stable. Cr bumped from 1.07 to 1.8, holding stable there, BUN up from 22 to 39. Got 2mg of bumex bid PO yesterday will reduce bumex to 1mg po and dismiss on that dosage. CxR ysterday shows improving pulmonary edema, lows clear, no supplemental O2 needs . Home on atenolol and bumex for bp control. Continue CAD risk management: ASA 81mg daily, lovastatin. Tele remained stable SR, no ectopy. Resume all other home meds and supplements as prior to admission. LE improved significantly, pt reports improved breathing "the best it has been in 3 months". Pt is instructed on low Na diet, fluid restriction of 2L daily, heart failure management. He needs to f/u with his PCP for cough in one week, Lard [employer]her in 1-2 weeks and regular object oriented developer Dr. Lior Whitfield in 2-4 weeks. Time spent with patient: 25 - 35 minutes DVT Prophylaxis: SCD's, Lovenox Discharge Plan - Med Rec/Dispo Referrals/Follow Up: Reza Gomez MD [Family Provider] - 1 Week Raghav Pool MD [Physician] - 2 Weeks Angelo Owen MD [Physician] - 1 Week Art Instructions: [facility] Congestive Heart Failure, Electrolyte/Mineral Supplement (By mouth), DASH Eating Plan (DC), Low Sodium Diet (DC) Additional Instructions: lab BMP, Mag in 5 days, script hand written Prescriptions: New Bumetanide Tab [Bumex Tab] 1 mg PO DAILY tab Potassium Chloride [K-Dur] 20 meq PO WB tab Continue Lovastatin [Mevacor] 40 mg PO HS Calcium Polycarbophil [Fiber] 1,250 mg PO HS Aspirin [Adult Low Dose Aspirin EC] 81 mg PO HS Citalopram [Celexa] 20 mg PO HS Cholecalciferol (Vitamin D3) [Vitamin D3] 1,000 unit PO HS Vitamin B Complex Vit C No.4 [Super B Complex] 150 mg PO HS Fluticasone/Salmeterol [Airduo Respiclick 113-14 Mcg] 1 each IH HS Atenolol 25 mg PO HS #0 [place]-3 Acid Ethyl Esters [Lovaza] 2 gm PO HS Diphenhydramine Cream [Benadryl Extra Strength Cream] 1 applicatio TOP BID PRN PRN Reason: Prn Orders Miconazole Nitrate [Antifungal Cream] 1 applicatio TP BID PRN PRN Reason: Prn Orders - Disposition 01 Discharged Home, Self-Care - Dismissal Complete Discharge Instructions are:: Complete <Raghav Pool - Last Filed: 09/06/17 13:07> Discharge Information Date of admission: 08/30/17 08:30 Attending Physician: Raghav Pool MD Primary care physician: Reza Gomez MD Consults: 08/31/17 05:15 Case Management Consult [CONS] Routine Reason For Exam: noc ox study - Discharge Diagnosis (1) Diastolic CHF Status: Acute (2) COPD (chronic obstructive pulmonary disease) Status: Chronic (3) HTN (hypertension) Status: Chronic (4) HLD (hyperlipidemia) Status: Chronic - Laboratory Labs: 08/31/17 04:11 Hospital Course This is a general summary of the patient's hospital course. For more details refer to the complete medical record.
[2017-08-31 12:06] VITALS: PULSE 58
[2017-08-31] MEDS ORDERED: LOVASTATIN 20 MG TABLET PO SCH (21:00)
== END 2017-08-31 15:15 | disposition home or self-care (01) | DRG 291 ==
LOC: ED 10:40 → MED 10:40
PROVIDERS: ADMIT Internal Medicine Cardiovascular Disease; ATTEND Internal Medicine Cardiovascular Disease

== ENCOUNTER 2018-05-05 09:29 | Observation (INO) ==
[2018-05-05] MEDS ORDERED: SALINE FLUSH 10ml SYRINGE IVF PRN (09:47)
--- NOTE | 2018-05-05 09:49 | Emergency Department Report ---
General Adult HPI - General Chief complaint: Chest Pain Stated complaint: cp Time Seen by Provider: 05/05/18 09:47 Source: patient Mode of arrival: ambulatory Limitations: no limitations - History of Present Illness HPI narrative: 78 M presents to the emergency department with the chief complaint of chest pressure and dyspnea with exertion over the past "couple of days." Patient that the symptoms have occurred at least twice over the past 24 hours. Patient states that his symptoms resolve with rest. He is currently asymptomatic. No other complaints or associated symptoms. He was at home when his symptoms began. Symptoms have been persistent in nature as indicated above. Patient does have a history of coronary artery disease with bypass in 2002. His utility mechanic supervisor is Dr. Pool. - Related Data Home Medications Medication Instructions Recorded Confirmed Atenolol [Tenormin] 12.5 mg PO DAILY 05/05/18 05/05/18 Calcium Polycarbophil [Fiber] 1,300 mg PO DAILY 05/05/18 05/05/18 Cholecalciferol (Vitamin D3) 1,000 unit PO DAILY 05/05/18 05/05/18 [Vitamin D3] Citalopram [Celexa] 20 mg PO DAILY 05/05/18 05/05/18 Famotidine [Pepcid] 20 mg PO BID PRN 05/05/18 05/05/18 Furosemide [Lasix] 20 mg PO DAILY 05/05/18 05/05/18 Hydrocortisone 1% Cream 1 applicatio TOP PRN PRN 05/05/18 05/05/18 [Cortizone-10 Cream] Lovastatin [Mevacor] 40 mg PO DAILY 05/05/18 05/05/18 Miconazole Nitrate [Antifungal 1 applicatio TP PRN PRN 05/05/18 05/05/18 Cream] Potassium Chloride 10 meq PO DAILY 05/05/18 05/05/18 Triamcinolone 0.1% Cream 15 G 1 applicatio TOP BID PRN 05/05/18 05/05/18 [Kenalog] Vitamin B Complex Vit C No.4 150 mg PO DAILY 05/05/18 05/05/18 [Super B Complex] Allergies Allergy/AdvReac Type Severity Reaction Status Date / Time decongestant AdvReac Uncoded 05/05/18 09:38 Review of Systems Constitutional: Denies: fever, chills Eyes: Denies: eye pain, vision change ENT: Denies: ear pain, throat pain Cardiovascular: Denies: chest pain, palpitations Respiratory: Reports: dyspnea (resolved). Denies: cough, wheezes Gastrointestinal: Denies: abdominal pain, nausea, vomiting, diarrhea Genitourinary: Denies: urgency, dysuria Musculoskeletal: Denies: back pain, arthralgia Integumentary: Denies: erythema, rash Neurological: Denies: headache, numbness, paresthesias Psychiatric: Denies: anxiety, depression Endocrine: Denies: polydipsia, polyuria Hematological/Lymphatic: Denies: easy bruising, lymphadenopathy Allergic/Immunologic: Denies: facial swelling, urticaria PFSH Patient Stated Medical History Congestive Heart Failure Yes Hypertension Yes Bronchitis Yes: PER H&P Other Respiratory Yes: EMPHYSEMA Other GI Yes: HEMORRHOIDS Other Yes: left kidney mass Osteoarthritis Yes: BILAT SHOULDERS Other Musculoskeletal Yes Cellulitis Yes Blood Transfusions Yes Depression Yes Surgical History: CABG 2013 Family History: Reviewed and Noncontributory. - Social History Smoking status: Never smoker Substance use type: does not use Alcohol intake frequency: does not drink Housing: homeless Household members: none Current occupational status: disabled Current occupation: [employer] Current residence: Homeless Physical Exam - Limitations Limitations: no limitations - General General appearance: alert, in no apparent distress - Normal Exams: Head:: Normocephalic without trauma Eyes:: Pupils are PERRLA w/ EOMI, No scleral icterus, irritation, or foreign bodies noted ENMT:: No facial trauma, nasal exudates, pharyngeal erythema, or exudates are noted Dental: No fractured, loose, or missing teeth noted Neck:: Full range of motion, without adenopathy, JVD, bruits or thyromegaly Chest/Respirations:: Clear all king, with good airflow, and symmetry bilaterally Cardiovascular:: Regular rate and rhythm, without murmur or gallop, Pulses 2+ all extremities, capillary refill, <2 seconds all extremities Abdomen:: Bowel sounds positive, soft, non-tender, non-distended, no hepatosplenomegaly, masses or bruits noted Lymphatic:: No lymphadenopathy, or lymphedema noted Musculoskeletal:: No tenderness, or deformity noted, good range of motion, all extremities Integumentary:: No rashes, hives, or bruising noted, hair and nails, without abnormality Neurological:: Patient is alert, and oriented, cranial nerves, motor/sensory/ cerebellar, exams w/o gross deficits, to observation Psychiatric:: Patient exhibits, appropriate attention, emotion and affect Course Vital Signs Temperature 98.2 F 05/05/18 09:30 Pulse Rate 56 L 05/05/18 09:30 Respiratory Rate 19 05/05/18 09:30 Blood Pressure 145/63 H 05/05/18 09:30 Pulse Oximetry 94 05/05/18 09:30 Temperature 98.2 F 05/05/18 09:30 Pulse Rate 53 L 05/05/18 15:17 Respiratory Rate 20 05/05/18 15:17 Blood Pressure 132/63 05/05/18 12:17 Pulse Oximetry 95 05/05/18 15:17 Medical Decision Making - [facility] Narrative Medical decision making narrative: Labs / Imaging were discussed in detail with the patient and questions are answered. Patient remains asymptomatic during his emergency department stay. Patient was given 324 mg of aspirin by mouth 1 in the emergency department. Patient is discussed with Dr. Schulz who was covering for the patient's utility mechanic supervisor who recommends admission to his service for further evaluation and treatment. Patient is admitted to the service of cardiology for further evaluation and treatment. Patient is in agreement with the current plan of management. No further orders from accepting physician who is in agreement with the current plan of management at this time. - Differential Diagnosis ACS, Pneumothorax, Chest wall pain, Metabolic disorder - Lab Data Result diagrams: 05/05/18 09:47 05/05/18 09:47 Lab Results 05/05/18 05/05/18 05/05/18 Range/Units 09:47 09:47 09:47 WBC 5.9 (4.5-11.0) T/MM3 RBC 4.17 L (4.50-5.90) M/MM3 Hgb 12.4 L (13.5-17.5) GM/DL Hct 37.6 L (41-53) % MCV 90.2 (80-100) UM3 MCH 29.7 (26-34) UUG MCHC 33.0 (31-37) GM/DL RDW Std Deviation 43.6 (36.9-50.2) FL Plt Count 136 (130-400) T/MM3 MPV 9.2 L (9.4-12.4) UM3 Immature Gran % (Auto) 0.2 (0.0-0.5) % Neut % (Auto) 64.2 (33-66) % Lymph % (Auto) 21.6 L (23-45) % [place] % (Auto) 9.6 H (0-9.0) % Eos % (Auto) 3.9 (0-4) % Baso % (Auto) 0.5 (0-2) % Neut # (Auto) 3.8 (1.8-7.7) T/MM3 Lymph # (Auto) 1.3 (1-4.8) T/MM3 [place] # (Auto) 0.6 (0-0.8) T/MM3 Eos # (Auto) 0.2 (0-0.5) T/MM3 Baso # (Auto) 0.0 (0-0.2) T/MM3 Abs Immat Gran (auto) 0.01 (0.00-0.03) T/MM3 Turbidity < 20 (0-20) Sodium 142 (136-146) MEQ/L Potassium 4.2 (3.6-5) MEQ/L Chloride 111 H (98-107) MEQ/L Carbon Dioxide 21 L (22-30) MEQ/L Anion Gap 10 (5-15) meq/L BUN 28.0 H (9-20) MG/DL Creatinine 1.8 H (0.8-1.5) mg/dL Estimated Creat Clear 40 (>50) mL/min GFR Calculation 37 (>60) mL/min BUN/Creatinine Ratio 16 (6-26) RATIO Glucose 124 H (75-110) MG/DL Calculated Osmolality 280 (261-280) MOSM/KG Calcium 9.0 (8.4-10.2) MG/DL Total Bilirubin 0.30 (0.20-1.30) MG/DL Icterus Index < 2 (0-7) AST 17 (17-59) U/L ALT 12 (1-50) U/L Alkaline Phosphatase 53 (38-126) U/L Troponin I 0.025 (0-0.12) ng/ml NT-Pro-B Natriuret Pep 729 H (0-175) pg/mL Total Protein 6.7 (6.3-8.2) g/dL Albumin 4.0 (3.5-5.0) g/dL Globulin 2.7 (2.4-3.6) G/DL Albumin/Globulin Ratio 1.5 (1.1-2.2) RATIO Specimen Hemolysis < 15 (0-25) - Radiology Data CXR - IMPRESSION: Mild cardiomegaly without evidence for overt CHF or pneumonia. 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 - EKG Data EKG #1 EKG results narrative: Sinus rhythm with first-degree AV block. T-wave abnormality lateral similar to comparison EKG from 08/30/2017. No STEMI. 67 bpm. Disposition Clinical Impression: Exertional dyspnea Disposition: 02 To [facility] Condition: Stable Time of Disposition: 11:30 (Admit. Dr. Schulz. ) - Seen By: physician
--- OUTSIDE RECORDS SUMMARY | 2018-05-05 10:30 | External Medical Summary | Referral Summary ---
:1940 Author Organization [facility] [address] [place] [address] Care Team Providers Name Role Phone Reza Gomez Primary Care Physician Encounter VC Date(s): 07/31/17 - 07/31/17 [facility] [address] [place] [address] [place] [address]- Discharge Disposition: 01-Home or Self Care Attending Physician: Lior Whitfield MD Admitting Physician: Lior Whitfield MD Referring Physician: Bhaskar Echols MD Vital Signs Most recent to oldest [Reference Range]: 1 Peripheral Pulse Rate [60-100 bpm] 68 bpm (07/31/17 1:39 PM) Blood Pressure [90-140/60-90 mmHg] 114/52 mmHg (07/31/17 1:39 PM) Problem List Condition Effective Dates Status Health Status Informant Allergies(Confirmed) Active Coronary heart disease(Confirmed) Active Benign prostatic Active hypertrophy(Confirmed) BPH associated with Active nocturia(Confirmed) Bronchitis(Confirmed) Active Cardiomegaly - Active hypertensive(Confirmed) Cataracts(Confirmed) Active Angina/Chest Pain(Confirmed) < 08/18/14 Resolved Chronic gingivitis, plaque Active induced(Confirmed) Coronary artery disease(Confirmed) Active Macular degeneration(Confirmed) Active Depression(Confirmed) Active Short of breath on Active exertion(Confirmed) Edema(Confirmed) Active Financial difficulties(Confirmed) Active Hearing loss(Confirmed) Active Herpes zoster(Confirmed) Active H/O coronary artery bypass Active surgery(Confirmed) Hyperlipidemia(Confirmed) Active Hypertension(Confirmed) Active Ear infections(Confirmed) Active Bronchitis with flu(Confirmed) Active Irritable bowel syndrome(Confirmed) Active Psychiatric disturbance(Confirmed) Active Obesity(Confirmed) Active patient Osteoarthritis(Confirmed) Active Peptic [...] Daily, # 90 tabs, 3 Refill(s), Pharmacy: [id number], 1 tabs Oral Daily Start Date: 03/21/17 Status: OrderedBactrim DS 800 mg-160 mg oral tablet 1 tabs, Oral, BID, X 10 days, # 20 tabs, 0 Refill(s), Pharmacy: [id number] Start Date: 07/30/17 Stop Date: 08/09/17 Status: Orderedcitalopram 40 mg oral tablet tabs, Oral, Daily, 0 Refill(s) Start Date: 04/07/14 Status: Orderedfamotidine 20 mg oral tablet 20 mg 1 tabs, Oral, BID, as needed for itching, # 60 tabs, 11 Refill(s), Pharmacy: [id number], 1 tabs Oral BID,x30 days,PRN:as needed for itching Start Date: 07/04/17 Stop Date: 06/29/18 Status: OrderedFiberCon 625 mg oral tablet 2 capsules, Oral, Daily, 0 Refill(s) Start Date: 04/07/14 Status: Orderedfurosemide 20 mg oral tablet 20 mg 1 tabs, Oral, Daily, # 30 tabs, 11 Refill(s), Pharmacy: [id number], 1 tabs Oral Daily Start Date: 07/31/17 Status: Orderedloratadine 10 mg oral tablet 10 mg 1 tabs, Oral, Daily, 0 Refill(s) Start Date: 07/04/17 Status: Orderedlovastatin 40 mg oral tablet 40 mg 1 tabs, Oral, Daily, with evening meal, # 90 tabs, 3 Refill(s), Pharmacy: [id number], 1 tabs Oral Daily,Instr:with evening meal Start Date: 02/05/17 Status: OrderedLovaza 1000 mg oral capsule 2,000 mg 2 caps, Oral, Daily, # 120 caps, 0 Refill(s) Start Date: 04/03/17 Status: OrderedSuper B Complex tabs, Oral, Daily, 0 Refill(s) Start Date: 05/07/17 Status: OrderedVitamin D3 1000 intl units oral tablet 1,000 Intl_Units 1 tabs, Oral, Daily, # 30 tabs, 0 Refill(s) Start Date: 03/21/17 Status: Ordered Immunizations Given and Recorded Vaccine Date Status Refusal Reason influenza virus vaccine, inactivated 07/30/17 Given influenza virus vaccine, live 08/26/12 Given pneumococcal 23-polyvalent vaccine 08/06/06 Recorded Procedures Procedure Date Related Diagnosis Body Site Colonoscopy 10/21/99 CABG x 2 - Coronary artery bypass grafts x 2 Tonsillectomy Social History Social History Type Response Smoking Status Never smoker entered on: 05/15/17
--- OUTSIDE RECORDS SUMMARY | 2018-05-05 10:30 | External Medical Summary | Referral Summary ---
:1940 Author Organization [facility] [place] [address] Care Team Providers Name Role Phone Reza Gomez Primary Care Physician Encounter VC Date(s): 07/30/17 - 07/30/17 [facility] [place] [phone] [place] Discharge Diagnosis: Anemia Discharge Diagnosis: Benign essential hypertension Discharge Diagnosis: Needs flu shot Discharge Diagnosis: Lymphedema of leg Discharge Diagnosis: Acute bronchitis Discharge Diagnosis: CKD (chronic kidney disease) stage 3, GFR 30-59 ml/min Discharge Diagnosis: CAD (coronary artery disease) Discharge Diagnosis: Cellulitis of both feet Discharge Diagnosis: Acute chest pain Discharge Diagnosis: LIU (dyspnea on exertion) Discharge Disposition: 01-Home or Self Care Attending Physician: Reza Gomez MD Admitting Physician: Reza Gomez MD Vital Signs Most recent to oldest [Reference Range]: 1 Temperature Tympanic [36.6-38.1 degC] 36.5 degC *LOW* (07/30/17 1:19 PM) Peripheral Pulse Rate [60-100 bpm] 60 bpm (07/30/17 1:19 PM) Respiratory Rate [14-20 br/min] 16 br/min (07/30/17 1:19 PM) Blood Pressure [90-140/60-90 mmHg] 130/60 mmHg (07/30/17 1:19 PM) Problem List Condition Effective Dates Status Health Status Informant Allergies(Confirmed) Active Coronary heart disease(Confirmed) Active Benign prostatic Active hypertrophy(Confirmed) BPH associated with Active nocturia(Confirmed) Bronchitis(Confirmed) Active Cardiomegaly - Active hypertensive(Confirmed) Cataracts(Confirmed) Active Angina/Chest Pain(Confirmed) < 11/12/14 Resolved Chronic gingivitis, plaque Active induced(Confirmed) Coronary [...] Daily, # 90 tabs, 3 Refill(s), Pharmacy: [id number], 1 tabs Oral Daily Start Date: 03/21/17 Status: OrderedBactrim DS 800 mg-160 mg oral tablet 1 tabs, Oral, BID, X 10 days, # 20 tabs, 0 Refill(s), Pharmacy: [id number] Start Date: 07/30/17 Stop Date: 08/09/17 Status: Orderedcitalopram 40 mg oral tablet tabs, Oral, Daily, 0 Refill(s) Start Date: 04/07/14 Status: Orderedfamotidine 20 mg oral tablet 20 mg 1 tabs, Oral, BID, as needed for itching, # 60 tabs, 11 Refill(s), Pharmacy: [id number], 1 tabs Oral BID,x30 days,PRN:as needed for itching Start Date: 07/04/17 Stop Date: 06/29/18 Status: OrderedFiberCon 625 mg oral tablet 2 capsules, Oral, Daily, 0 Refill(s) Start Date: 04/07/14 Status: Orderedloratadine 10 mg oral tablet 10 mg 1 tabs, Oral, Daily, 0 Refill(s) Start Date: 07/04/17 Status: Orderedlovastatin 40 mg oral tablet 40 mg 1 tabs, Oral, Daily, with evening meal, # 90 tabs, 3 Refill(s), Pharmacy: [id number], 1 tabs Oral Daily,Instr:with [...] 0 Refill(s) Start Date: 03/21/17 Status: Ordered Results Hematology Most recent to oldest [Reference Range]: 1 WBC [4.8-10.8 10*3/uL] 6.1 10*3/uL (07/30/17 2:39 PM) RBC [4.60-6.20] 4.02 *LOW* (07/30/17 2:39 PM) Hgb [14.0-18.0 gm/dL] 11.9 gm/dL *LOW* (07/30/17 2:39 PM) Hct [42.0-52.0 %] 36.6 % *LOW* (07/30/17 2:39 PM) MCV [82.0-99.0 fL] 91.0 fL (07/30/17 2:39 PM) MCH [27.0-32.0 pg] 29.6 pg (07/30/17 2:39 PM) MCHC [32.0-36.0 gm/dL] 32.5 gm/dL (07/30/17 2:39 PM) RDW [11.5-14.5 %] 14.3 % (07/30/17 2:39 PM) Platelet [150-400 10*3/uL] 146 10*3/uL *LOW* (07/30/17 2:39 PM) MPV [8.8-14.8 fL] 9.9 fL (07/30/17 2:39 PM) Immature Granulocytes [0.0-1.0 %] 0.2 % (07/30/17 2:39 PM) Neutrophils [51-75 %] 67 % (07/30/17 2:39 PM) Lymphocytes [20-46 %] 13 % *LOW* (07/30/17 2:39 PM) Monocytes [4-11 %] 14 % *HI* (07/30/17 2:39 PM) Eosinophils [0-4 %] 5 % *HI* (07/30/17 2:39 PM) Basophils [0-2 %] 1 % (07/30/17 2:39 PM) Neutro Absolute [1.90-7.00] 4.10 (07/30/17 2:39 PM) Lymph Absolute [0.80-3.30] 0.77 *LOW* (07/30/17 2:39 PM) Potter Absolute [0.30-1.00] 0.87 (07/30/17 2:39 PM) Eos Absolute [0.00-0.50] 0.30 (07/30/17 2:39 PM) Baso Absolute [0.00-0.20] 0.05 (07/30/17 2:39 PM) Chemistry Most recent to oldest [Reference Range]: 1 Sodium Lvl [135-144 mEq/L] 139 mEq/L (07/30/17 2:39 PM) Potassium Lvl [3.5-5.2 mEq/L] 4.9 mEq/L (07/30/17 2:39 PM) Chloride [99-111 mEq/L] 108 mEq/L (07/30/17 2:39 PM) CO2 [23-31 mEq/L] 25 mEq/L (07/30/17 2:39 PM) AGAP [3-20 mEq/L] 6 mEq/L (07/30/17 2:39 PM) BUN [8-26 mg/dL] 25 mg/dL (07/30/17 2:39 PM) Glucose Lvl [70-99 mg/dL] 88 mg/dL (07/30/17 2:39 PM) Creatinine Lvl [0.72-1.25 mg/dL] 1.77 mg/dL *HI* (07/30/17 2:39 PM) eGFR [>60 mL/min] 38 mL/min 1 *ABN* (07/30/17 2:39 PM) Calcium Lvl [8.4-10.2 mg/dL] 9.1 mg/dL (07/30/17 2:39 PM) Albumin Lvl [3.4-4.8 gm/dL] 4.1 gm/dL (07/30/17 2:39 PM) Total Protein [6.0-7.6 gm/dL] 6.7 gm/dL (07/30/17 2:39 PM) Globulin [1.8-4.0 gm/dL] 2.6 gm/dL (07/30/17 2:39 PM) ALT [0-55 U/L] 34 U/L (07/30/17 2:39 PM) AST [5-34 U/L] 25 U/L (07/30/17 2:39 PM) Alk Phos [40-150 U/L] 61 U/L (07/30/17 2:39 PM) Bili Total [0.2-1.2 mg/dL] 0.4 mg/dL (07/30/17 2:39 PM) BNP [0-99 pg/mL] 710 pg/mL *HI* (07/30/17 2:39 PM) Troponin [0.00-0.03 ng/mL] 0.00 ng/mL (07/30/17 2:39 PM) 1Result Comment: Multiply eGFR results by 1.21 for race. Immunizations Given and Recorded Vaccine Date Status Refusal Reason influenza virus vaccine, inactivated 07/30/17 Given influenza virus vaccine, live 08/26/12 Given pneumococcal 23-polyvalent vaccine 08/06/06 Recorded Procedures Procedure Date Related Diagnosis Body Site Colonoscopy 10/21/99 CABG x 2 - Coronary artery bypass grafts x 2 Tonsillectomy Social History Social History Type Response Smoking Status Never smoker entered on: 05/15/17 Assessment and Plan Extracted from: Title: Ambulatory Patient Education Author: Reza Gomez MD Date: Obstetrics and Gynecology Anemia, Nonspecific Anemia is a condition in which the concentration of red blood cells or hemoglobin in the blood is below normal. Hemoglobin is a substance in red blood cells that carries oxygen to the tissues of the bod y. Anemia results in not enough oxygen reaching these tissues. CAUSES Common causes of anemia include: Excessive bleeding. Bleeding may be internal or external. This includes excessive bleeding from periods (in women) or from the intestine. Poor nutrition. Chronic kidney, thyroid, and liver disease. Bone marrow disorders that decrease red blood cell production. Cancer and treatments for cancer. HIV, AIDS, and their treatments. Spleen problems that increase red blood cell destruction. Blood disorders. Excess destruction of red blood cells due to infection, medicines, and autoimmune disorders. SIGNS AND SYMPTOMS Minor weakness. Dizziness. Headache. Palpitations. Shortness of breath, especially with exercise. Paleness. Cold sensitivity. Indigestion. Nausea. Difficulty sleeping. Difficulty concentrating. Symptoms may occur suddenly or they may develop slowly. DIAGNOSIS Additional blood tests are often needed. These help your health care provider determine the best treatment. Your health care provider will check your stool for blood and look for other causes of blood loss. TREATMENT Treatment varies depending on the cause of the anemia. Treatment can include: Supplements of iron, vitamin B12, or folic acid. Hormone medicines. A blood transfusion. This may be needed if blood loss is severe. Hospitalization. This may be needed if there is significant continual blood loss. Dietary changes. Spleen removal. HOME CARE INSTRUCTIONS Keep all follow-up appointments. It often takes many weeks to correct anemia, and having your health care provider check on your condition and your response to treatment is very important. SEEK IMMEDIATE MEDICAL CARE IF: You develop extreme weakness, shortness of breath, or chest pain. You become dizzy or have trouble concentrating. You develop heavy vaginal bleeding. You develop a rash. You have bloody or black, tarry stools. You faint. You vomit up blood. You vomit repeatedly. You have abdominal pain. You have a fever or persistent symptoms for more than 2 3 days. You have a fever and your symptoms suddenly get worse. You are dehydrated. MAKE SURE YOU: Understand these instructions. Will watch your condition. Will get help right away if you are not doing well or get worse. This information is not intended to replace advice given to you by your health care provider. Make sure you discuss any questions you have with your health care provider. Document Released: 10/31/2005 Document Revised: 05/26/2014 Document Reviewed: 03/19/2014 [employer] Interactive Patient Education 2017 [employer] No follow up information was provided. Extracted from: Title: several problems Author: Reza Gomez MD Date: 10/24/17 Impression and Plan Diagnosis CKD (chronic kidney disease) stage 3, GFR 30-59 ml/min (ELC52-FD N18.3, Discharge, Medical). Cellulitis of both feet (PVJ53-IW L03.115, Discharge, Medical). Lymphedema of leg (OIN86-TA I89.0, Discharge, Medical). CAD (coronary artery disease) (YOD00-BT I25.10, Discharge, Medical). Benign essential hypertension (SIY83-VE I10, Discharge, Medical). Acute chest pain (RED03-ED R07.9, Discharge, Medical). Acute bronchitis (BTA80-BD J20.9, Discharge, Medical). LIU (dyspnea on exertion) (YJA46-PK R06.09, Discharge, Medical). Anemia (WRK90-BH D64.9, Discharge, Medical). Needs flu shot (MAY93-NI Z23, Working, Medical). Needs flu shot (HGF03-LD Z23, Discharge, Medical). Plan: 1) High dose Flu shot ordered today. 2) Lab and CXR ordered today. 3) ECG done--was unchanged since 2013. 4) Bactrim DS ordered for an additional 10 days. 5) You must lie down flat with your feet slightly elevated during the night, in order for your legs to get better. 6) You must get out of sleeping in your car and out of the bedbugs, and use support stockings during the day if you want your leg edema and infections to clear. 7) See Dr. Whitfield tomorrow, as scheduled. 8) See me in 2-3 months and as needed.. Orders Orders (Selected) Outpatient Orders Ordered Office Visit Level 5 Est 30816: influenza virus vaccine, inactivated preservative-free trivalent intramuscular suspension: 0.5 mL, IntraMuscular, Once Future (On Hold) BNP: CBC w/ Differential: CMP: Chest XR 2 Views: Troponin: Prescriptions Prescribed Bactrim DS 800 mg-160 mg oral tablet: 1 tabs, Oral, BID, for 10 days, 20 tabs, 0 Refill(s). Dx/Order Association Plan: Diagnosis: Acute bronchitis Comment: Ordered: Office Visit Level 5 Est 33246; 07/30/17 14:03:00 CDT, Acute chest pain | Acute bronchitis | Cellulitis of both feet | Lymphedema of leg | CAD (coronary artery disease) | Anemia | CKD (chronic kidney disease) stage 3, GFR 30-59 ml/min | LIU (dyspnea on exertion) | Benign essential h... Other status: Chest XR 2 Views; 07/30/17 14:09:00 CDT, Routine, Stop date 07/30/17 14:09:00 CDT, Reason: Chest pain, Acute bronchitis | Acute chest pain | LIU (dyspnea on exertion), ABN Status: Not Required (Activate) Diagnosis: Acute chest pain Comment: Ordered: BNP; Blood, Routine Collect, 07/30/17 14:10:00 CDT, Once , Stop date 07/30/17 14:10:00 CDT, Lab Collect, Acute chest pain | LIU (dyspnea on exertion) Troponin; Blood, Routine Collect, 07/30/17 14:10: 00 CDT, Once, Stop date 07/30/17 14:10:00 CDT, Lab Collect, Acute chest pain | LIU (dyspnea on exertion) Office Visit Level 5 Est 75608; 07/30/17 14:03:00 CDT, Acute chest pain | Acute bronchitis | Cellulitis of both feet | Lymphedema of leg | CAD (coronary artery disease) | An emia | CKD (chronic kidney disease) stage 3, GFR 30-59 ml/min | LIU (dyspnea on exertion) | Benign essential h... Other status: Chest XR 2 Views; 07/30/17 14:09:00 CDT, Routine, Stop date 07/30/17 14:09:00 CDT, Reason: Chest pain, Acute bronchitis | Acute chest pain | LIU (dyspnea on exertion), ABN Status: Not Required (Activate) Diagnosis: Anemia Comment: Ordered: CBC w/ Differential; Blood, Routine Collect, 07/30/17 14 :09:00 CDT, Once, Stop date 07/30/17 14:09:00 CDT, Lab Collect, Anemia | Cellulitis of both feet Office Visit Level 5 Est 59035; 07/30/17 14:03:00 CDT, Acute chest pain | Acute bronchitis | Cellulitis of both feet | Lymphedema of leg | CAD (coronary artery disease) | An emia | CKD (chronic kidney disease) stage 3, GFR 30-59 ml/min | LIU (dyspnea on exertion) | Benign essential h... Diagnosis: Benign essential hypertension Comment: Ordered: CMP; Blood, Routine Collect, 07/30/17 14:09:00 CDT, Once , Stop date 07/30/17 14:09:00 CDT, Lab Collect, Benign essential hypertension | CAD (coronary artery disease) | CKD (chroni c kidney disease) stage 3, GFR 30-59 ml/min | Lymphedema of leg Office Visit Level 5 Est 62886; 07/30/17 14:03:00 CDT, Acute chest pain | Acute bronchitis | Cellulitis of both feet | Lymphedema of leg | CAD (coronary artery disease) | An emia | CKD (chronic kidney disease) stage 3, GFR 30-59 ml/min | LIU (dyspnea on exertion) | Benign essential h... Diagnosis: CAD (coronary artery disease) Comment: Ordered: CMP; Blood, Routine Collect, 07/30/17 14:09:00 CDT, Once , Stop date 07/30/17 14:09:00 CDT, Lab Collect, Benign essential hypertension | CAD (coronary artery disease) | CKD (chroni c kidney disease) stage 3, GFR 30-59 ml/min | Lymphedema of leg Office Visit Level 5 Est 76223; 07/30/17 14:03:00 CDT, Acute chest pain | Acute bronchitis | Cellulitis of both feet | Lymphedema of leg | CAD (coronary artery disease) | An emia | CKD (chronic kidney disease) stage 3, GFR 30-59 ml/min | LIU (dyspnea on exertion) | Benign essential h... Diagnosis: CKD (chronic kidney disease) stage 3, GFR 30-59 ml/min Comment: Ordered: CMP; Blood, Routine Collect, 07/30/17 14:09:00 CDT, Once , Stop date 07/30/17 14:09:00 CDT, Lab Collect, Benign essential hypertension | CAD (coronary artery disease) | CKD (chroni c kidney disease) stage 3, GFR 30-59 ml/min | Lymphedema of leg Office Visit Level 5 Est 66485; 07/30/17 14:03:00 CDT, Acute chest pain | Acute bronchitis | Cellulitis of both feet | Lymphedema of leg | CAD (coronary artery disease) | An emia | CKD (chronic kidney disease) stage 3, GFR 30-59 ml/min | LIU (dyspnea on exertion) | Benign essential h... Diagnosis: Cellulitis of both feet Comment: Ordered: CBC w/ Differential; Blood, Routine Collect, 07/30/17 14 :09:00 CDT, Once, Stop date 07/30/17 14:09:00 CDT, Lab Collect, Anemia | Cellulitis of both feet Office Visit Level 5 Est 14247; 07/30/17 14:03:00 CDT, Acute chest pain | Acute bronchitis | Cellulitis of both feet | Lymphedema of leg | CAD (coronary artery disease) | An emia | CKD (chronic kidney disease) stage 3, GFR 30-59 ml/min | LIU (dyspnea on exertion) | Benign essential h... Diagnosis: LIU (dyspnea on exertion) Comment: Ordered: BNP; Blood, Routine Collect, 07/30/17 14:10:00 CDT, Once , Stop date 07/30/17 14:10:00 CDT, Lab Collect, Acute chest pain | LIU (dyspnea on exertion) Troponin; Blood, Routine Collect, 07/30/17 14:10: 00 CDT, Once, Stop date 07/30/17 14:10:00 CDT, Lab Collect, Acute chest pain | LIU (dyspnea on exertion) Office Visit Level 5 Est 37911; 07/30/17 14:03:00 CDT, Acute chest pain | Acute bronchitis | Cellulitis of both feet | Lymphedema of leg | CAD (coronary artery disease) | An emia | CKD (chronic kidney disease) stage 3, GFR 30-59 ml/min | LIU (dyspnea on exertion) | Benign essential h... Other status: Chest XR 2 Views; 07/30/17 14:09:00 CDT, Routine, Stop date 07/30/17 14:09:00 CDT, Reason: Chest pain, Acute bronchitis | Acute chest pain | LIU (dyspnea on exertion), ABN Status: Not Required (Activate) Diagnosis: Lymphedema of leg Comment: Ordered: CMP; Blood, Routine Collect, 07/30/17 14:09:00 CDT, Once , Stop date 07/30/17 14:09:00 CDT, Lab Collect, Benign essential hypertension | CAD (coronary artery disease) | CKD (chroni c kidney disease) stage 3, GFR 30-59 ml/min | Lymphedema of leg Office Visit Level 5 Est 55265; 07/30/17 14:03:00 CDT, Acute chest pain | Acute bronchitis | Cellulitis of both feet | Lymphedema of leg | CAD (coronary artery disease) | An emia | CKD (chronic kidney disease) stage 3, GFR 30-59 ml/min | LIU (dyspnea on exertion) | Benign essential h... Diagnosis: Needs flu shot Comment: Diagnosis: Needs flu shot Comment: Ordered: Office Visit Level 5 Est 15716; 07/30/17 14:03:00 CDT, Acute chest pain | Acute bronchitis | Cellulitis of both feet | Lymphedema of leg | CAD (coronary artery disease) | Anemia | CKD (chronic kidney disease) stage 3, GFR 30-59 ml/min | LIU (dyspnea on exertion) | Benign essential h... Additional Orders: Comment: Ordered: BMP,Blood, Routine Collect, 07/30/17 14:09:00 CDT, Once, Stop date 07/30/17 14:09:00 CDT, Lab Collect, CKD (chronic kidney disease) stage 3, GFR 30-59 ml/min | Lymphedema of leg | Benign essential hypertension Ordered: BMP,Blood, Routine Collect, 07/30/17 14:09:00 CDT, Once, Stop date 07/30/17 14:09:00 CDT, Lab Collect, CKD (chronic kidney disease) stage 3, GFR 30-59 ml/min | Lymphedema of leg | Benign essential hypertension Ordered: BMP,Blood, Routine Collect, 07/30/17 14:09:00 CDT, Once, Stop date 07/30/17 14:09:00 CDT, Lab Collect, CKD (chronic kidney disease) stage 3, GFR 30-59 ml/min | Lymphedema of leg | Benign essential hypertension Ordered: Bactrim DS 800 mg-160 mg oral tablet,1 tabs, Oral, BID, X 10 days, # 20 tabs, 0 Refill(s), Pharmacy: [id number] End of Orders ."
--- OUTSIDE RECORDS SUMMARY | 2018-05-05 10:30 | External Medical Summary | Referral Summary ---
:1940 Author Organization [facility] Address [address] [place] [address] Care Team Providers Name Role Phone Reza Gomez Primary Care Physician Encounter VC Date(s): 02/13/18 - 02/13/18 [facility] [address] [place] [address] us Encounter Diagnosis H/O coronary artery bypass surgery (Discharge Diagnosis) - 02/13/18 Diastolic dysfunction (Discharge Diagnosis) - 02/13/18 Hoarding disorder (Discharge Diagnosis) - 02/13/18 Coronary heart disease (Discharge Diagnosis) - 02/13/18 Chronic mental illness (Discharge Diagnosis) - 02/13/18 Edema (Discharge Diagnosis) - 02/13/18 Venous insufficiency (Discharge Diagnosis) - 02/13/18 Lymph edema (Discharge Diagnosis) - 02/13/18 Discharge Disposition: 01-Home or Self Care Attending Physician: Lior Whitfield MD Admitting Physician: Lior Whitfield MD Referring Physician: Lior Whitfield MD Vital Signs Most recent to oldest [Reference Range]: 1 Peripheral Pulse Rate [60-100 bpm] 72 bpm (02/13/18 2:55 PM) Blood Pressure [90-140/60-90 mmHg] 108/52 mmHg (02/13/18 2:55 PM) Problem List Condition Effective Dates Status [...] Daily, # 90 tabs, 3 Refill(s), Pharmacy: [id number], 1 tabs Oral Daily Start Date: 03/21/17 Status: Orderedcitalopram 40 mg oral tablet tabs, Oral, Daily, 0 Refill(s) Start Date: 04/07/14 Status: Orderedfamotidine 20 mg oral tablet 20 mg 1 tabs, Oral, BID, as needed for itching, # 60 tabs, 11 Refill(s), Pharmacy: [facility] [id number], 1 tabs Oral BID,x30 days,PRN:as needed for itching Start Date: 07/04/17 Stop Date: 06/29/18 Status: OrderedFiberCon 625 mg oral tablet 2 capsules, Oral, Daily, 0 Refill(s) Start Date: 04/07/14 Status: Orderedfurosemide 20 mg oral tablet 20 mg 1 tabs, Oral, Daily, # 30 tabs, 11 Refill(s), Pharmacy: [id number], 1 tabs Oral Daily Start Date: 07/31/17 Status: Orderedloratadine 10 mg oral tablet 10 mg 1 tabs, Oral, Daily, 0 Refill(s) Start Date: 07/04/17 Status: Orderedlovastatin 40 mg oral tablet 40 mg 1 tabs, Oral, Daily, with evening meal, # 90 tabs, 3 Refill(s), Pharmacy: [id number], 1 tabs Oral Daily,Instr:with [...] Procedures Procedure Date Related Diagnosis Body Site Status Colonoscopy 10/21/99 Completed CABG x 2 - Coronary artery bypass Completed grafts x 2 Tonsillectomy Completed Social History Social History Type Response Smoking Status Never smoker entered on: 05/15/17 Assessment and Plan Extracted from: Title: Office Visit Note Author: Lior Whitfield MD Date: 02/13/18 1.Coronary heart disease 2.H/O coronary artery bypass surgery 3.Diastolic dysfunction 4.Chronic mental illness 5.Hoarding disorder 6.Edema 7.Venous insufficiency 8.Lymph edema Discussion:The patient appears to be reasonably compensated. He at least is taking his medication at this point. I didn't make any changes in his medication program. The patient continues to berather strikingly in jeopardy.
--- OUTSIDE RECORDS SUMMARY | 2018-05-05 10:31 | External Medical Summary | Referral Summary ---
:1940 Author Organization [facility] Address [address] [place] [address] JULIENNE Shaikh [id number] Care Team Providers Name Role Phone Bhaskar Echols Primary Care Physician Encounter VC Date(s): 01/23/17 - 01/23/17 [facility], [address] [place] [phone] Discharge Diagnosis: Edema Discharge Diagnosis: Short of breath on exertion Discharge Diagnosis: Coronary heart disease Discharge Diagnosis: H/O coronary artery bypass surgery Discharge Disposition: -Home or Self Care Attending Physician: Lior Whitfield MD Admitting Physician: Lior Whitfield MD Referring Physician: Bhaskar Echols MD Vital Signs Most recent to oldest [Reference Range]: 1 Peripheral Pulse Rate [60-100 bpm] 80 bpm (01/23/17 2:10 PM) Blood Pressure [90-140/60-90 mmHg] 130/80 mmHg (01/23/17 2:10 PM) Problem List Condition Effective Dates Status Health Status Informant Allergies(Confirmed) Active Coronary heart disease(Confirmed) Active Benign prostatic Active hypertrophy(Confirmed) Bronchitis(Confirmed) Active Cardiomegaly - Active hypertensive(Confirmed) Cataracts(Confirmed) Active Angina/Chest Pain(Confirmed) < 08/18/14 Resolved Chronic gingivitis, plaque Active induced(Confirmed) Coronary artery disease(Confirmed) Active Macular degeneration(Confirmed) Active Depression(Confirmed) Active Short of breath on Active exertion(Confirmed) Edema(Confirmed) Active Hearing loss(Confirmed) Active Herpes zoster(Confirmed) Active [...] Daily, # 90 tabs, 2 Refill(s), Pharmacy: [id number], 1 tabs Oral Daily Start Date: 04/19/16 Status: Orderedcitalopram 40 mg oral tablet tabs, Oral, Daily, 0 Refill(s) Start Date: 04/07/14 Status: OrderedFiberCon 625 mg oral tablet 635m 3 daily, 0 Refill(s) Start Date: 04/07/14 Status: Orderedlabassa labassa, 0 Refill(s) Start Date: 01/23/17 Status: OrderedLasix 20 mg oral tablet 20 mg 1 tabs, Oral, Daily, # 30 tabs, 2 Refill(s), Pharmacy: [id number], 1 tabs Oral Daily Start Date: 11/23/16 Status: Orderedpravastatin 40 mg oral tablet 40 mg 1 tabs, Oral, Daily, # 30 tabs, 0 Refill(s) Start Date: 01/23/17 Status: OrderedVitamin B Complex oral tablet 1 tabs, Oral, Daily, 0 Refill(s) Start Date: 04/07/14 Status: OrderedVitamin D with Minerals oral tablet 1 tabs, Oral, Daily, # 30 tabs, 0 Refill(s) Start Date: 01/23/17 Status: Ordered Results No data available for [...]
--- OUTSIDE RECORDS SUMMARY | 2018-05-05 10:31 | External Medical Summary | Referral Summary ---
:1940 [facility] Address [address] [place] [address] [place]IEN[place] Shaikh [phone] Care Team Providers Name Role Phone Reza Gomez Primary Care Physician Encounter VC Date(s): 03/21/17 - 03/21/17 [facility] [place] [phone] [place] Discharge Diagnosis: LVH (left ventricular hypertrophy) Discharge Diagnosis: CKD (chronic kidney disease) stage 3, GFR 30-59 ml/min Discharge Diagnosis: Acute chest pain Discharge Diagnosis: ERNESTINE (generalized anxiety disorder) Discharge Diagnosis: CAD (coronary artery disease) Discharge Diagnosis: Benign essential hypertension Discharge Diagnosis: Mixed hyperlipidemia Discharge Diagnosis: BPH with urinary obstruction Discharge Diagnosis: Moderate mitral regurgitation Discharge Diagnosis: Chronic obstructive pulmonary disease Discharge Diagnosis: Mild major depression Discharge Diagnosis: Lower abdominal pain Discharge Disposition: 01-Home or Self Care Attending Physician: Reza Gomez MD Admitting Physician: Reza Gomez MD Vital Signs Most recent to oldest [Reference Range]: 1 Temperature Tympanic [36.6-38.1 degC] 36.4 degC *LOW* (03/21/17 10:25 AM) Peripheral Pulse Rate [60-100 bpm] 76 bpm (03/21/17 10:25 AM) Blood Pressure [90-140/60-90 mmHg] 142/66 mmHg *HI* (03/21/17 10:25 AM) Problem List Condition Effective Dates Status Health Status Informant Allergies(Confirmed) Active Coronary heart disease(Confirmed) Active Benign prostatic Active hypertrophy(Confirmed) Bronchitis(Confirmed) Active Cardiomegaly - Active hypertensive(Confirmed) Cataracts(Confirmed) Active Angina/Chest Pain(Confirmed) < 14 Resolved Chronic gingivitis, plaque Active induced(Confirmed) Coronary [...] Daily, # 90 tabs, 3 Refill(s), Pharmacy: [id number], 1 tabs Oral Daily Start Date: 03/21/17 Status: Orderedcitalopram 40 mg oral tablet tabs, Oral, Daily, 0 Refill(s) Start Date: 04/07/14 Status: OrderedFiberCon 625 mg oral tablet 2 capsules, Oral, Daily, 0 Refill(s) Start Date: 04/07/14 Status: Orderedlabassa labassa, 0 Refill(s) Start Date: 01/23/17 Status: OrderedLasix 20 mg oral tablet 20 mg 1 tabs, Oral, Daily, # 30 tabs, 2 Refill(s), Pharmacy: [id number], 1 tabs Oral Daily Start Date: 11/23/16 Status: Orderedlovastatin 40 mg oral tablet 40 mg 1 tabs, Oral, Daily, with evening meal, # 90 tabs, 3 Refill(s), [id number], 1 tabs Oral Daily,Instr:with evening meal Start Date: 02/05/17 Status: OrderedLovaza 1000 mg oral capsule 1,000 mg 1 caps, Oral, BID, Dr. Michelle, 0 Refill(s) Start Date: 03/21/17 Status: OrderedVitamin B Complex oral tablet 1 tabs, Oral, Daily, 0 Refill(s) Start Date: 04/07/14 Status: OrderedVitamin D with Minerals oral tablet 1 tabs, Oral, Daily, # 30 tabs, 0 Refill(s) Start Date: 01/23/17 Status: OrderedVitamin D3 1000 intl units oral tablet 1,000 Intl_Units 1 tabs, Oral, Daily, # 30 tabs, 0 Refill(s) Start Date: 03/21/17 Status: Ordered Results Hematology Most recent to oldest [Reference Range]: 1 WBC [4.8-10.8 10*3/uL] 5.6 10*3/uL (03/21/17 11:11 AM) RBC [4.60-6.20] 4.57 *LOW* (03/21/17 11:11 AM) Hgb [14.0-18.0 gm/dL] 13.4 gm/dL *LOW* (03/21/17 11:11 AM) Hct [42.0-52.0 %] 40.4 % *LOW* (03/21/17 11:11 AM) MCV [82.0-99.0 fL] 88.4 fL (03/21/17 11:11 AM) MCH [27.0-32.0 pg] 29.3 pg (03/21/17 11:11 AM) MCHC [32.0-36.0 gm/dL] 33.2 gm/dL (03/21/17 11:11 AM) RDW [11.5-14.5 %] 14.0 % (03/21/17 11:11 AM) Platelet [150-400 10*3/uL] 144 10*3/uL *LOW* (03/21/17 11:11 AM) MPV [8.8-14.8 fL] 9.4 fL (03/21/17 11:11 AM) Immature Granulocytes [0.0-1.0 %] 0.4 % (03/21/17 11:11 AM) Neutrophils [51-75 %] 64 % (03/21/17 11:11 AM) Lymphocytes [20-46 %] 17 % *LOW* (03/21/1711 AM) Monocytes [4-11 %] 13 % *HI* (03/21/1711 AM) Eosinophils [0-4 %] 5 % *HI* (03/21/17 AM) Basophils [0-2 %] 1 % (03/21/1711 AM) Neutro Absolute [1.90-7.00] 3.58 (03/21/1711 AM) Lymph Absolute [0.80-3.30] 0.92 (03/21/17:11 AM) Winn Absolute [0.30-1.00] 0.71 (03/21/1711 AM) Eos Absolute [0.00-0.50] 0.28 (03/21/17 AM) Baso Absolute [0.00-0.20] 0.05 (03/21/1711 AM) Chemistry Most recent to oldest [Reference Range]: 1 Sodium Lvl [135-144 mEq/L] 141 mEq/L (03/21/17 AM) Potassium Lvl [3.5-5.2 mEq/L] 4.4 mEq/L (03/21/1711 AM) Chloride [99-111 mEq/L] 111 mEq/L (03/21/17 AM) CO2 [23-31 mEq/L] 26 mEq/L (03/21/17 AM) AGAP [3-20 mEq/L] 4 mEq/L (03/21/1711 AM) BUN [8-26 mg/dL] 27 mg/dL *HI* (03/21/17 AM) Glucose Lvl [70-99 mg/dL] 105 mg/dL *HI* (03/21/1711 AM) Creatinine Lvl [0.72-1.25 mg/dL] 1.46 mg/dL *HI* (03/21/17 AM) eGFR [>60 mL/min] 47 mL/min 1 *ABN* (03/21/1711 AM) Calcium Lvl [8.4-10.2 mg/dL] 9.5 mg/dL (03/21/1711 AM) Albumin Lvl [3.4-4.8 gm/dL] 4.3 gm/dL (03/21/17 11:11 AM) Total Protein [6.0-7.6 gm/dL] 6.8 gm/dL (03/21/17 11:11 AM) Globulin [1.8-4.0 gm/dL] 2.5 gm/dL (03/21/17 11:11 AM) ALT [0-55 U/L] 15 U/L (03/21/17 11:11 AM) AST [5-34 U/L] 16 U/L (03/21/17 11:11 AM) Alk Phos [40-150 U/L] 63 U/L (03/21/17 11:11 AM) Bili Total [0.2-1.2 mg/dL] 0.6 mg/dL (03/21/17 11:11 AM) PSA (wihout Reflex Free) [0.0-6.5 ng/mL] 5.1 ng/mL 2 (03/21/17 11:11 AM) Chol [0-199 mg/dL] 156 mg/dL (03/21/17 11:11 AM) Trig [0-149 mg/dL] 135 mg/dL (03/21/17 11:11 AM) HDL [40-84 mg/dL] 34 mg/dL *LOW* (03/21/17:11 AM) LDL [0-130 mg/dL] 95 mg/dL (03/21/17 11:11 AM) VLDL Cholesterol [0-28 mg/dL] 27 mg/dL (03/21/17 11:11 AM) Cardiac Risk [0.0-5.7] 4.6 (03/21/17 11:11 AM) 1Result Comment: Multiply eGFR results by 1.21 for race.2Result Comment: AUA PSA Best Practice Guidelines: Age-Adjusted PSA Values by Ethnic Group Age Range Asians - Caucasians Americans 40-49 0-2.0 0-2.0 0-2.5 50-59 0-3.0 0-4.0 0-3.5 60-69 0-4.0 0-4.5 0-4.5 70-79 0-5.0 0-5.5 0-6.5Urinalysis Most recent to oldest [Reference Range]: 1 UA Color Yellow (03/21/17 11:22 AM) UA Appear Clear (03/21/17 11:22 AM) UA pH [5.0-8.0] 5.5 (03/21/17 11:22 AM) UA Leuk Est [Negative] Negative (03/21/17 11:22 AM) UA Nitrite [Negative] Negative (03/21/17 11:22 AM) UA Protein [Negative] Trace *ABN* (03/21/17 11:22 AM) UA Glucose [Negative] Negative (03/21/17 11:22 AM) UA Ketones [Negative] Negative (03/21/17 11:22 AM) UA Urobilinogen [<1.0 mg/dL] 0.2 mg/dL (03/21/17 11:22 AM) UA Bili [Negative] Negative (03/21/17 11:22 AM) UA Blood [Negative] Negative (03/21/17 11:22 AM) UA Spec Grav [1.003-1.030] 1.022 (03/21/17 11:22 AM) Type Clean Catch (03/21/17 11:22 AM) Immunizations Given and Recorded Vaccine Date Status Refusal Reason influenza virus vaccine, live 08/26/12 Given pneumococcal 23-polyvalent vaccine 08/06/06 Recorded Procedures Procedure Date Related Diagnosis Body Site Colonoscopy 10/21/99 Cardiac Bypass Tonsillectomy Social History Social History Type Response Smoking Status Never smoker Assessment and Plan Extracted from: Title: Ambulatory Patient Education Author: Reza Gomez MD Date: 03/21/17 Emergency Medicine Abdominal Pain, Adult Many things can cause abdominal pain. Usually, abdominal pain is not caused by a disease and will improve without treatment. It can often be observed and treated at home. Your health care provider will do a physical exam and possibly order blood tests and X-rays to help determine the seriousness of your pain. However, in many cases, more time must pass before a clear cause of the pain can be found. Be fore that point, your health care provider may not know if you need more testing or further treatment. HOME CARE INSTRUCTIONS Monitor your abdominal pain for any changes. The following actions may help to alleviate any discomfort you are experiencing: Only take [id number] or prescription medicines as directed by your health care provider. Do not take laxatives unless directed to do so by your health care provider. Try a clear liquid diet (broth, tea, or water) as directed by your health care provider. Slowly move to a bland diet as tolerated. SEEK MEDICAL CARE IF: You have unexplained abdominal pain. You have abdominal pain associated with nausea or diarrhea. You have pain when you urinate or have a bowel movement. You experience abdominal pain that wakes you in the night. You have abdominal pain that is worsened or improved by eating food. You have abdominal pain that is worsened with eating fatty foods. You have a fever. SEEK IMMEDIATE MEDICAL CARE IF: Your pain does not go away within 2 hours. You keep throwing up (vomiting). Your pain is felt only in portions of the abdomen, such as the right side or the left lower portion of the abdomen. You pass bloody or black tarry stools. MAKE SURE YOU: Understand these instructions. Will watch your condition. Will get help right away if you are not doing well or get worse. This information is not intended to replace advice given to you by your health care provider. Make sure you discuss any questions you have with your health care provider. Document Released: 07/03/2006 Document Revised: 06/13/2016 Document Reviewed: 06/02/2014 [employer] Patient Education 2016 [employer] No follow up information was provided. Extracted from: Title: several problems Author: Reza Gomez MD Date: 03/21/17 Impression and Plan Diagnosis CAD (coronary artery disease) (IZE33-ND I25.10, Discharge, Medical). Benign essential hypertension (XOX60-ZX I10, Discharge, Medical). Mixed hyperlipidemia (NJG40-UB E78.2, Discharge, Medical). Mild major depression (PUK47-HX F32.0, Discharge, Medical). CKD (chronic kidney disease) stage 3, GFR 30-59 ml/min (MMY71-FL N18.3, Discharge, Medical). Moderate mitral regurgitation (IIE10-QT I34.0, Discharge, Medical). LVH (left ventricular hypertrophy) (MSN67-VJ I51.7, Discharge, Medical). ERNESTINE (generalized anxiety disorder) (DFY54-ML F41.1, Discharge, Medical). Acute chest pain (OXU66-IT R07.9, Discharge, Medical). Chronic obstructive pulmonary disease (AJA73-LI J44.9, Discharge, Medical). Lower abdominal pain (ESU64-XI R10.30, Discharge, Medical). BPH with urinary obstruction (XPJ97-ME N40.1, Discharge, Medical). Plan: 1) You reluctantly agreed to have a colonoscopy, due to your intermittent lower abdominal pains, which you thought were more related to your bowels than to your bladder. 2) You weren't interested in restarting your Tamsulosin at this time. 3) You may continue your routine meds. 4) Lab ordered today. 5) See me in one month and as needed. 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 Orders Orders (Selected) Outpatient Orders Ordered Office Visit Level 4 Est 77919: Future (On Hold) CBC w/ Differential: CMP: Fasting Lipid Profile: PSA: Routine Urinalysis: Prescriptions Prescribed atenolol 25 mg oral tablet: 25 mg=1 tabs, Oral, Daily, 90 tabs, 3 Refill(s). Dx/Order Association Plan: Diagnosis: Acute chest pain Comment: Ordered: Office Visit Level 4 Est 99528; 03/21/17 10:35:00 CDT, Lower abdominal pain | BPH with urinary obstruction | Acute chest pain | Mixed hyperlipidemia | Mild major depression | Avila gn essential hypertension | CAD (coronary artery disease) | CKD (chronic kidney disease) stage 3, GFR 30... Future Orders: Lipid Panel; Blood, Routine Collect, 03/21/17, Once, Lab Collect, Mixed hyperlipidemia | Acute chest pain, Order for future visit CMP; Blood, Routine Collect, 03/21/17, Once, Lab Collect, Acute chest pain, Order for future visit CBC w/ Diff; Blood, Routine Collect, 03/21, Once, Lab Collect, Acute chest pain, Order for future visit Diagnosis: BPH with urinary obstruction Comment: Ordered: Office Visit Level 4 Est 11106; 03/21/17 10:35:00 CDT, Lower abdominal pain | BPH with urinary obstruction | Acute chest pain | Mixed hyperlipidemia | Mild major depression | Avila gn essential hypertension | CAD (coronary artery disease) | CKD (chronic kidney disease) stage 3, GFR 30... Future Orders: PSA; Blood, Routine Collect, 03/21/17, Once, Lab Collect, BPH with urinary obstruction | Lower abdominal pain, Order for future visit UA w Culture; Urine, Clean Catch, Routine collect, 03/21/17, Once, Nurse Collect Non-Blood, BPH with urinary obstruction | Lower abdominal pain, Order for future visit Diagnosis: Benign essential hypertension Comment: Ordered: Office Visit Level 4 Est [id number]; 03/21/17 10:35:00 CDT, Lower abdominal pain | BPH with urinary obstruction | Acute chest pain | Mixed hyperlipidemia | Mild major depression | Avila gn essential hypertension | CAD (coronary artery disease) | CKD (chronic kidney disease) stage 3, GFR 30... Diagnosis: CAD (coronary artery disease) Comment: Ordered: Office Visit Level 4 Est 03729; 03/21/17 10:35:00 CDT, Lower abdominal pain | BPH with urinary obstruction | Acute chest pain | Mixed hyperlipidemia | Mild major depression | Avila gn essential hypertension | CAD (coronary artery disease) | CKD (chronic kidney disease) stage 3, GFR 30... Diagnosis: CKD (chronic kidney disease) stage 3, GFR 30-59 ml/min Comment: Ordered: Office Visit Level 4 Est [id number]; 03/21/17 10:35:00 CDT, Lower abdominal pain | BPH with urinary obstruction | Acute chest pain | Mixed hyperlipidemia | Mild major depression | Avila gn essential hypertension | CAD (coronary artery disease) | CKD (chronic kidney disease) stage 3, GFR 30... Diagnosis: Chronic obstructive pulmonary disease Comment: Ordered: Office Visit Level 4 Est 22889; 03/21/17 10:35:00 CDT, Lower abdominal pain | BPH with urinary obstruction | Acute chest pain | Mixed hyperlipidemia | Mild major depression | Avila gn essential hypertension | CAD (coronary artery disease) | CKD (chronic kidney disease) stage 3, GFR 30... Diagnosis: ERNESTINE (generalized anxiety disorder) Comment: Ordered: Office Visit Level 4 Est 48884; 03/21/17 10:35:00 CDT, Lower abdominal pain | BPH with urinary obstruction | Acute chest pain | Mixed hyperlipidemia | Mild major depression | Avila gn essential hypertension | CAD (coronary artery disease) | CKD (chronic kidney disease) stage 3, GFR 30... Diagnosis: LVH (left ventricular hypertrophy) Comment: Ordered: Office Visit Level 4 Est 21866; 03/21/17 10:35:00 CDT, Lower abdominal pain | BPH with urinary obstruction | Acute chest pain | Mixed hyperlipidemia | Mild major depression | Avila gn essential hypertension | CAD (coronary artery disease) | CKD (chronic kidney disease) stage 3, GFR 30... Diagnosis: Lower abdominal pain Comment: Ordered: Office Visit Level 4 Est 79074; 03/21/17 10:35:00 CDT, Lower abdominal pain | BPH with urinary obstruction | Acute chest pain | Mixed hyperlipidemia | Mild major depression | Avila gn essential hypertension | CAD (coronary artery disease) | CKD (chronic kidney disease) stage 3, GFR 30... Future Orders: PSA; Blood, Routine Collect, 03/21/17, Once, Lab Collect, BPH with urinary obstruction | Lower abdominal pain, Order for future visit UA w Culture; Urine, Clean Catch, Routine collect, 03/21/17, Once, Nurse Collect Non-Blood, BPH with urinary obstruction | Lower abdominal pain, Order for future visit Diagnosis: Mild major depression Comment: Ordered: Office Visit Level 4 Est 20042; 03/21/17 10:35:00 CDT, Lower abdominal pain | BPH with urinary obstruction | Acute chest pain | Mixed hyperlipidemia | Mild major depression | Avila gn essential hypertension | CAD (coronary artery disease) | CKD (chronic kidney disease) stage 3, GFR 30... Diagnosis: Mixed hyperlipidemia Comment: Ordered: Office Visit Level 4 Est 11232; 03/21/17 10:35:00 CDT, Lower abdominal pain | BPH with urinary obstruction | Acute chest pain | Mixed hyperlipidemia | Mild major depression | Avila gn essential hypertension | CAD (coronary artery disease) | CKD (chronic kidney disease) stage 3, GFR 30... Future Orders: Lipid Panel; Blood, Routine Collect, 03/21/17, Once, Lab Collect, Mixed hyperlipidemia | Acute chest pain, Order for future visit Diagnosis: Moderate mitral regurgitation Comment: Ordered: Office Visit Level 4 Est 53841; 03/21/17 10:35:00 CDT, Lower abdominal pain | BPH with urinary obstruction | Acute chest pain | Mixed hyperlipidemia | Mild major depression | Avila gn essential hypertension | CAD (coronary artery disease) | CKD (chronic kidney disease) stage 3, GFR 30... Additional Orders: Comment: Ordered: atenolol 25 mg oral tablet,25 mg 1 tabs, Oral, Daily, # 90 tabs, 3 Refill(s), Pharmacy: [id number], 1 tabs Oral Daily End of Orders ."
--- OUTSIDE RECORDS SUMMARY | 2018-05-05 10:31 | External Medical Summary | Referral Summary ---
:1940 [facility] Address [address] [place] [address] [place] Shaikh [phone] Care Team Providers Name Role Phone Bhaskar Echols Primary Care Physician Encounter VC Date(s): 02/04/17 - 02/04/17 [facility] [place] [phone] [place] Discharge Diagnosis: COPD (chronic obstructive pulmonary disease) Discharge Diagnosis: Acute URI Discharge Disposition: 01-Home or Self Care Attending Physician: Miriam Forte PA-C Admitting Physician: Miriam Forte PA-C Vital Signs Most recent to oldest [Reference Range]: 1 Temperature Tympanic [36.6-38.1 degC] 36.6 degC (02/04/17 4:05 PM) Peripheral Pulse Rate [60-100 bpm] 66 bpm (02/04/17 4:05 PM) Blood Pressure [90-140/60-90 mmHg] 126/62 mmHg (02/04/17 4:05 PM) SpO2 93 % (02/04/17 4:05 PM) Problem List Condition Effective Dates Status [...] Daily, # 90 tabs, 2 Refill(s), Pharmacy: [id number], 1 tabs Oral Daily Start Date: 04/19/16 Status: Orderedcitalopram 40 mg oral tablet tabs, Oral, Daily, 0 Refill(s) Start Date: 04/07/14 Status: OrderedFiberCon 625 mg oral tablet 635m 3 daily, 0 Refill(s) Start Date: 04/07/14 Status: Orderedlabassa labassa, 0 Refill(s) Start Date: 01/23/17 Status: OrderedLasix 20 mg oral tablet 20 mg 1 tabs, Oral, Daily, # 30 tabs, 2 Refill(s), Pharmacy: [facility], 1 tabs Oral Daily Start [...] and Plan Extracted from: Title: Office Visit Note- URI Author: Miriam Forte PA-C Date: 02/04/17 Assessment/Plan Acute URI Appears to be viral at this time. He is already improving. I advised the pt to rest and push fluids. Recommend warm salt water gargles for ST. May also try warm tea with honey. They are to RTC if not improving or if they are worsening. Ordered: Office Visit Level 4 Est 00863 COPD (chronic obstructive pulmonary disease) We talked fora long time about his Advair. D/w him that Advair is intended to be used daily, not prn. He thinks the 500mcg is too high, and I agree. He should be on the 250mcg but we don't have any samples and he can't afford it. D/w pt that if he wants the 250mcg dose, then he will need to get it from the pharmacy. He could also just use Albuterol prn, but I don't have samples of this, and he ca n't afford this either. He wants to take the Advair every other day, which he could try. D/w pt that I do not suspect an exacerbation today. Ordered: Office Visit Level 4 Est [id number]
--- OUTSIDE RECORDS SUMMARY | 2018-05-05 10:31 | External Medical Summary | Referral Summary ---
:1940 Author Organization [facility] [place] [address] Care Team Providers Name Role Phone Reza Gomez Primary Care Physician Encounter VC Date(s): 07/19/17 - 07/19/17 [facility] [place] [phone] [place] Discharge Diagnosis: Lymphedema of leg Discharge Diagnosis: CKD (chronic kidney disease) stage 3, GFR 30-59 ml/min Discharge Diagnosis: Cellulitis of right foot Discharge Diagnosis: ERNESTINE (generalized anxiety disorder) Discharge Diagnosis: Benign essential hypertension Discharge Diagnosis: Chronic venous stasis dermatitis Discharge Diagnosis: CAD (coronary artery disease) Discharge Disposition: 01-Home or Self Care Attending Physician: Reza Gomez MD Admitting Physician: Reza Gomez MD Vital Signs Most recent to oldest [Reference Range]: 1 Temperature Oral [35.8-37.3 degC] 36.6 degC (07/19/17 2:23 PM) Peripheral Pulse Rate [60-100 bpm] 72 bpm (07/19/17 2:23 PM) Blood Pressure [90-140/60-90 mmHg] 140/62 mmHg (07/19/17 2:23 PM) Problem List Condition Effective Dates Status [...] Substance Reaction Severity Status pseudoephedrine Active Medications amoxicillin 500 mg oral capsule 500 mg 1 caps, Oral, TID, X 10 days, # 30 caps, 0 Refill(s), Pharmacy: [id number], 1 caps Oral TID,x10 days Start Date: 07/19/17 Stop Date: 07/29/17 Status: OrderedAspir 81 81 mg, Oral, Daily, 0 Refill(s) Start Date: 04/07/14 Status: Orderedatenolol 25 mg oral tablet 25 mg 1 tabs, Oral, Daily, # 90 tabs, 3 Refill(s), Pharmacy: [id number], 1 tabs Oral Daily Start Date: 03/21/17 Status: Orderedcitalopram 40 mg oral tablet tabs, Oral, Daily, 0 Refill(s) Start Date: 04/07/14 Status: Orderedfamotidine 20 mg oral tablet 20 mg 1 tabs, Oral, BID, as needed for itching, # 60 tabs, 11 Refill(s), Pharmacy: [id number], 1 tabs Oral BID,x30 days,PRN:as needed for [...] meal, # 90 tabs, 3 Refill(s), Pharmacy: [id number], 1 tabs Oral Daily,Instr:with [...] Refill(s) Start Date: 03/21/17 Status: Ordered Results Chemistry Most recent to oldest [Reference Range]: 1 Sodium Venous [136-144 mmol/L] 138 mmol/L (07/19/17 3:31 PM) Potassium Venous [3.6-5.1 mmol/L] 4.8 mmol/L 1 (07/19/17 3:31 PM) Calcium Ionized Venous [1.19-1.41 mmol/L] 1.26 mmol/L (07/19/17 3:31 PM) Total CO2 Venous [25-29 mmol/L] 24 mmol/L *LOW* (07/19/17 3:31 PM) Glucose Venous [70-100 mg/dL] 104 mg/dL *HI* (07/19/17 3:31 PM) BUN Venous [4-20] 29 *HI* (07/19/17 3:31 PM) Creatinine Venous [0.7-1.2 mg/dL] 1.7 mg/dL *HI* (07/19/17 3:31 PM) Venous CL [99-109 mmol/L] 106 mmol/L (07/19/17 3:31 PM) 1Result Comment: This test was performed on a whole blood specimen. The presence or absence of hemolysis cannot be assessed. Hemolysis can falsely elevate potassium levels. Normals are for venous specimens only. Immunizations Given and Recorded Vaccine Date Status [...] Patient Education Author: Reza Gomez MD Date: Home Health Care Cellulitis, Adult Cellulitis is a skin infection. The infected area is usually red and tender. This condition occurs most often in the arms and lower legs. The infection can travel to the muscles, blood, and underlying t issue and become serious. It is very important to get treated for this condition. CAUSES Cellulitis is caused by bacteria. The bacteria enter through a break in the skin, such as a cut, burn, insect bite, open sore, or crack. RISK FACTORS This condition is more likely to occur in people who: Have a weak defense system (immune system). Have open wounds on the skin such as cuts, sanchez, bites, and scrapes. Bacteria can enter the body through these open wounds. Are older. Have diabetes. Have a type of long-lasting (chronic) liver disease (cirrhosis) or kidney disease. Use IV drugs. SYMPTOMS Symptoms of this condition include: Redness, streaking, or spotting on the skin. Swollen area of the skin. Tenderness or pain when an area of the skin is touched. Warm skin. Fever. Chills. Blisters. DIAGNOSIS This condition is diagnosed based on a medical history and physical exam. You may also have tests, including: Blood tests. Lab tests. Imaging tests. TREATMENT Treatment for this condition may include: Medicines, such as antibiotic medicines or antihistamines. Supportive care, such as rest and application of cold or warm cloths (cold or warm compresses) to the skin. Hospital care, if the condition is severe. The infection usually gets better within 1 2 days of treatment. HOME CARE INSTRUCTIONS Take yuij-wof-amwtljk and prescription medicines only as told by your health care provider. If you were prescribed an antibiotic medicine, take it as told by your health care provider. Do not stop taking the antibiotic even if you start to feel better. Drink enough fluid to keep your urine clear or pale yellow. Do not touch or rub the infected area. Raise (elevate) the infected area above the level of your heart while you are sitting or lying down. Apply warm or cold compresses to the affected area as told by your health care provider. Keep all follow-up visits as told by your health care provider. This is important. These visits let your health care provider make sure a more serious infection is not developing. SEEK MEDICAL CARE IF: You have a fever. Your symptoms do not improve within 1 2 days of starting treatment. Your bone or joint underneath the infected area becomes painful after the skin has healed. Your infection returns in the same area or another area. You notice a swollen bump in the infected area. You develop new symptoms. You have a general ill feeling (malaise) with muscle aches and pains. SEEK IMMEDIATE MEDICAL CARE IF: Your symptoms get worse. You feel very sleepy. You develop vomiting or diarrhea that persists. You notice red streaks coming from the infected area. Your red area gets larger or turns dark in color. This information is not intended to replace advice given to you by your health care provider. Make sure you discuss any questions you have with your health care provider. Document Released: 07/03/2006 Document Revised: 01/14/2017 Document Reviewed: 08/01/2016 [employer] Interactive Patient Education 2017 [employer] No follow up information was provided. Extracted from: Title: several problems Author: Reza Gomez MD Date: 07/19/17 Impression and Plan Diagnosis Cellulitis of right foot (NND09-AO L03.115, Discharge, Medical). Lymphedema of leg (MHB08-AD I89.0, Discharge, Medical). CKD (chronic kidney disease) stage 3, GFR 30-59 ml/min ([id number]-WM N18.3, Discharge, Medical). Benign essential hypertension (LWN08-ZS I10, Discharge, Medical). CAD (coronary artery disease) (OCV16-PK I25.10, Discharge, Medical). Chronic venous stasis dermatitis (WLL35-HP I87.2, Discharge, Medical). ERNESTINE (generalized anxiety disorder) (PLX63-WI F41.1, Discharge, Medical). Plan: 1) Take the Furosemide once a day. (later stopped--see note) 2) Take the Sulfa antibiotic twice a day for 10 days. (later stopped--see note ) 3) Take the Amoxicillin three times a day for 10 days. 4) Right foot culture obtained again. 5) Lab ordered today. 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 (later ordered for 3-4 days from now--see note) 7) See me in 11 days as scheduled. 8) May use Vaseline on your feet and legs. 9) You aren't doing your pola wrappings any more. 10) You are back to living in your car. 11) Get your flu shot today.. Orders Orders (Selected) Outpatient Orders Ordered Office Visit Level 4 Est 22322: Future (On Hold) BMP: Metabolic Panel i-STAT: Wound Culture: Prescriptions Prescribed amoxicillin 500 mg oral capsule: 500 mg=1 caps, Oral, TID, for 10 days, 30 caps , 0 Refill(s) furosemide 20 mg oral tablet: 20 mg=1 tabs, Oral, Daily, 30 tabs, 11 Refill(s) sulfamethoxazole-trimethoprim 800 mg-160 mg oral tablet: 1 tabs, Oral, BID, for 10 days, 20 tabs, 0 Refill(s). Dx/Order Association Plan: Diagnosis: Benign essential hypertension Comment: Ordered: Office Visit Level 4 Est 42275; 07/19/17 15:11:00 CDT, Cellulitis of right foot | Chronic venous stasis dermatitis | Lymphedema of leg | CAD (coronary artery disease) | Benign ess ential hypertension | CKD (chronic kidney disease) stage 3, GFR 30-59 ml/min | ERNESTINE (generalized anxiety... Future Orders: BMP; Blood, Routine Collect, *Est. 07/25/17 +/- 2 days, Once, Lab Collect, CKD (chronic kidney disease) stage 3, GFR 30-59 ml/min | Lymphedema of leg | Benign essential hypertension, Order for future visit Metabolic Panel i-STAT; Blood, Stat Collect, 07/19/17, Once, Lab Collect, CKD (chronic kidney disease) stage 3, GFR 30-59 ml/min | Lymphedema of leg | Benign essential hypertension, Order for future visit Diagnosis: CAD (coronary artery disease) Comment: Ordered: Office Visit Level 4 Est [id number]; 07/19/17 15:11:00 CDT, Cellulitis of right foot | Chronic venous stasis dermatitis | Lymphedema of leg | CAD (coronary artery disease) | Benign ess ential hypertension | CKD (chronic kidney disease) stage 3, GFR 30-59 ml/min | ERNESTINE (generalized anxiety... Diagnosis: CKD (chronic kidney disease) stage 3, GFR 30-59 ml/min Comment: Ordered: Office Visit Level 4 Est [id number]; 07/19/17 15:11:00 CDT, Cellulitis of right foot | Chronic venous stasis dermatitis | Lymphedema of leg | CAD (coronary artery disease) | Benign ess ential hypertension | CKD (chronic kidney disease) stage 3, GFR 30-59 ml/min | ERNESTINE (generalized anxiety... Future Orders: BMP; Blood, Routine Collect, *Est. 07/25/17 +/- 2 days, Once, Lab Collect, CKD (chronic kidney disease) stage 3, GFR 30-59 ml/min | Lymphedema of leg | Benign essential hypertension, Order for future visit Metabolic Panel i-STAT; Blood, Stat Collect, 07/19/17, Once, Lab Collect, CKD (chronic kidney disease) stage 3, GFR 30-59 ml/min | Lymphedema of leg | Benign essential hypertension, Order for future visit Diagnosis: Cellulitis of right foot Comment: Ordered: Wound Culture; Ulcer, Foot R, Routine collect, 07/19/17 15:22:00 CDT, Stop date 07/19/17 15:22:00 CDT, Nurse Collect Non-Blood, Cellulitis of right foot Office Visit Level 4 Est [id number]; 07/19/17 15:11:00 CDT, Cellulitis of right foot | Chronic venous stasis dermatitis | Lymphedema of leg | CAD (coronary artery disease) | [place] gn essential hypertension | CKD (chronic kidney disease) stage 3, GFR 30-59 ml/ min | ERNESTINE (generalized anxiety... Diagnosis: Chronic venous stasis dermatitis Comment: Ordered: Office Visit Level 4 Est [id number]; 07/19/17 15:11:00 CDT, Cellulitis of right foot | Chronic venous stasis dermatitis | Lymphedema of leg | CAD (coronary artery disease) | Benign ess ential hypertension | CKD (chronic kidney disease) stage 3, GFR 30-59 ml/min | ERNESTINE (generalized anxiety... Diagnosis: ERNESTINE (generalized anxiety disorder) Comment: Ordered: Office Visit Level 4 Est [id number]; 07/19/17 15:11:00 CDT, Cellulitis of right foot | Chronic venous stasis dermatitis | Lymphedema of leg | CAD (coronary artery disease) | Benign ess ential hypertension | CKD (chronic kidney disease) stage 3, GFR 30-59 ml/min | ERNESTINE (generalized anxiety... Diagnosis: Lymphedema of leg Comment: Ordered: Office Visit Level 4 Est [id number]; 07/19/17 15:11:00 CDT, Cellulitis of right foot | Chronic venous stasis dermatitis | Lymphedema of leg | CAD (coronary artery disease) | Benign ess ential hypertension | CKD (chronic kidney disease) stage 3, GFR 30-59 ml/min | ERNESTINE (generalized anxiety... Future Orders: BMP; Blood, Routine Collect, *Est. 07/25/17 +/- 2 days, Once, Lab Collect, CKD (chronic kidney disease) stage 3, GFR 30-59 ml/min | Lymphedema of leg | Benign essential hypertension, Order for future visit Metabolic Panel i-STAT; Blood, Stat Collect, 07/19/17, Once, Lab Collect, CKD (chronic kidney disease) stage 3, GFR 30-59 ml/min | Lymphedema of leg | Benign essential hypertension, Order for future visit Additional Orders: Comment: Ordered: amoxicillin 500 mg oral capsule,500 mg 1 caps, Oral, TID , X 10 days, # 30 caps, 0 Refill(s), Pharmacy: [facility], 1 caps Oral TID,x10 days Ordered: furosemide 20 mg oral tablet,20 mg 1 tabs, Oral, Daily, # 30 tabs, 11 Refill(s), Pharmacy: [facility], 1 tabs Oral Daily Ordered: sulfamethoxazole-trimethoprim 800 mg-160 mg oral tablet, 1 tabs, Oral, BID, X 10 days, # 20 tabs, 0 Refill(s), Pharmacy: [facility] End of Orders ."
--- OUTSIDE RECORDS SUMMARY | 2018-05-05 10:31 | External Medical Summary | Referral Summary ---
:1940 Author Organization [facility] [place] [address] Care Team Providers Name Role Phone Bhaskar Echols Primary Care Physician Encounter VC Date(s): 12/19/16 - 12/19/16 [facility] [place] [phone] [place] Discharge Diagnosis: Chronic gingivitis, plaque induced Discharge Disposition: 01-Home or Self Care Attending Physician: Bhaskar Echols MD Admitting Physician: Bhaskar Echols MD Vital Signs Most recent to oldest [Reference Range]: 1 Temperature Tympanic [36.6-38.1 degC] 36.1 degC *LOW* (12/19/16 3:33 PM) Blood Pressure [90-140/60-90 mmHg] 134/66 mmHg (12/19/16 3:33 PM) Problem List Condition Effective Dates Status [...] Daily, # 90 tabs, 2 Refill(s), Pharmacy: [facility], 1 tabs Oral Daily Start Date: 04/19/16 Status: Orderedcitalopram 40 mg oral tablet tabs, Oral, Daily, 0 Refill(s) Start Date: 04/07/14 Status: OrderedFiberCon 625 mg oral tablet 635m 3 daily, 0 Refill(s) Start Date: 04/07/14 Status: OrderedLasix 20 mg oral tablet 20 mg 1 tabs, Oral, Daily, # 30 tabs, 2 Refill(s), Pharmacy: [facility], 1 tabs Oral Daily Start Date: 11/23/16 Status: Orderedpravastatin 40 mg oral tablet 40 mg 1 tabs, Oral, Bedtime (once a day), X 90 days, # 90 tabs, 2 Refill(s), Pharmacy: [facility], 1 tabs Oral Bedtime (once a day),x90 days Start Date: 04/19/16 Stop Date: 01/14/17 Status: OrderedVitamin B Complex oral tablet 1 tabs, Oral, Daily, 0 Refill(s) Start Date: 04/07/14 Status: OrderedZorvolex 35 mg oral capsule 35 mg 1 caps, Oral, TID, as needed for pain, # 42 caps, 0 Refill(s) Start Date: 12/19/16 Status: Ordered Results No data available for [...] Echols MD Date: Dentistry Gingivitis Gingivitis is redness, soreness, and swelling (inflammation) of the gums. It results from poor care and cleaning of the mouth and teeth (oral hygiene). This condition is usually mild and clears up with treatment. Without treatment and proper oral hygiene, gingivitis can get worse and lead to other problems with the teeth and gums. CAUSES This condition is usually caused by a buildup of a sticky substance called plaque. Plaque is made up of mucus, bacteria, and food particles. When plaque builds up, it reacts with the saliva in the mouth to form a hard deposit called tartar, which becomes trapped around the base of the tooth. Plaque and tartar cause irritation of the gums, and that leads to gingivitis. RISK FACTORS The following factors may make you more likely to develop this condition: Not practicing good oral hygiene. Not getting proper nutrition from your diet. Taking certain medicines. . Using tobacco products. Certain medical conditions, such as: Diabetes. Some viral or fungal infections. Dry mouth. Dental appliances that do not fit properly. SYMPTOMS Symptoms of this condition include: Gums that bleed easily, especially during flossing or brushing. Swollen gums. Gums that are bright red or purple. Receding gums. This means that the gums are wearing away from the teeth so that more of the tooth is exposed. Bad breath. DIAGNOSIS This condition is diagnosed with a medical history and a physical exam of the teeth and gums. X-rays may be taken to see if the inflammation has spread to the supporting structures of the teeth. TREATMENT Treatment for this condition includes: Having your teeth and gums cleaned at the dentist's office to have the plaque and tartar removed. Practicing good oral hygiene at home. This includes careful brushing and regular flossing. In some cases, a mouthwash may be prescribed or recommended. HOME CARE INSTRUCTIONS Follow instructions from your dentist about how to clean your teeth. Make sure you: [place] your teeth two times per day using a soft-bristled toothbrush. Floss at least one time per day. It is best to floss before you brush your teeth. Use a mouthwash as told by your dentist. Maintain a well-balanced diet. Between meals, limit your intake of foods and beverages that contain sugar. See a dentist on a regular basis for cleaning and checkups. Do not use tobacco products, including cigarettes, chewing tobacco, or e- cigarettes. If you need help quitting, ask your health care provider. Keep all follow-up visits as told by your dentist. This is important. SEEK MEDICAL CARE IF: You have a fever. You have a lot of bleeding from your gums. You have pain in your gums or teeth. You have difficulty chewing. You notice any loose or infected teeth. You have swollen glands in your face or neck. This information is not intended to replace advice given to you by your health care provider. Make sure you discuss any questions you have with your health care provider. Document Released: 03/19/2002 Document Revised: 09/03/2016 Document Reviewed: 05/07/2016 [employer] Interactive Patient Education 2016 [employer] Periodontal Disease Periodontal disease, or gum disease, is a type of oral disease that affects the surrounding and supporting tissues of the teeth. These include the gums ( gingivae), ligaments, and tooth socket (alveolar bone). Periodontal disease can affect one tooth or many teeth. If left untreated, it may lead to tooth loss. CAUSES The main cause of periodontal disease is dental plaque, which contains harmful bacteria. These bacteria can cause the gums to become inflamed and infected. Further progression of the disease can damage the other supporting tissues. RISK FACTORS Diabetes. Smoking and tobacco use. Genetics. Hormonal changes of puberty, menopause, and . Stress. Clenching or grinding your teeth. Substance abuse. Poor nutrition. Diseases that interfere with the body's immune system. Certain medicines. SIGNS AND SYMPTOMS Red or swollen gums. Bad breath that does not go away. Gums that have pulled away from the teeth. Gums that bleed easily. Permanent teeth that are loose or . Pain when chewing. Changes in the way your teeth fit together. Sensitive teeth. DIAGNOSIS A thorough examination of the periodontal tissues will be done by your dentist. X-rays may be needed. Evaluation of your medical history will be needed to see if there are other factors or underlying conditions that may contribute to the disease. TREATMENT The number and types of treatment will vary depending on the extent of the disease. Treatment may include brushing and flossing only. Further disease progression may necessitate scaling and root planing or even surgery. The main goal is to control the infection. Good oral hygiene at home is necessary for the success of all types of treatment. HOME CARE INSTRUCTIONS Practice good oral hygiene. This includes flossing and brushing your teeth every day. See your dentist regularly, at least 2 times per year. Stop smoking if you smoke. Eat a well-balanced diet. SEEK IMMEDIATE DENTAL CARE IF: You have any signs or symptoms of periodontal disease along with: Swelling of your face, neck, or jaw. Inability to open your mouth. Severe pain uncontrolled by pain medicine. You have a fever or persistent symptoms for more than 2 3 days. You have a fever and your symptoms suddenly get worse. This information is not intended to replace advice given to you by your health care provider. Make sure you discuss any questions you have with your health care provider. Document Released: 09/25/2004 Document Revised: 05/26/2014 Document Reviewed: 03/02/2014 [employer] Interactive Patient Education 2016 [employer] Preventive Dental Care, Adult Preventive dental care includes seeing a dentist regularly and practicing good dental care (oral hygiene) at home. These actions can help to prevent cavities and other tooth problems, root canal problem s, gum disease (gingivitis), and tooth loss. Regular dental exams may also help your health care provider to diagnose other medical problems. Many diseases , including mouth cancers, have early signs bismark t can be found during a preventive dental care visit. WHAT CAN I EXPECT DURING MY DENTAL VISITS? Many adults see their dentist one or two times each year for oral exams and cleanings. Talk with your dentist about the best preventive dental care schedule for you. At your visit, your dentist may ask you about: Your overall health and diet. Any new symptoms, such as: Bleeding gums. Mouth, tooth, or jaw pain. Your dentist will do a mouth (oral) exam to check for: Cavities. Gingivitis or other problems. Signs of cancer. Neck swelling or lumps. Abnormal jaw movement or pain in the jaw joint. You may also have: Dental X-rays. Your teeth cleaned. If you have an early problem, like a cavity, your dentist will schedule time for you to get treatment. If you have a tooth root problem, gum disease, or a sign of another disease, your dentist may send you to see another health care provider for care. HOW CAN I CARE FOR MY TEETH AT HOME? [place] with an approved fluoride toothpaste every morning and night. If possible, brush within 10 minutes after every meal. Floss one time every day. Periodically check your teeth for white or brown spots after brushing. These may be signs of cavities. Check your gums for swelling or bleeding. These may be signs of gum disease, such as gingivitis or periodontitis. Make sure your diet includes plenty of fruits, vegetables, milk and dairy products, whole grains, and proteins. Do not eat a lot of starchy foods or foods with added sugar. Talk with your health car e provider if you have questions about following a healthy diet. Avoid sodas, sugary snacks, and sticky candies. Do not smoke. Do not get mouth piercings. If you have tooth or gum pain, gargle with a salt-water mixture 3 4 times per day or as needed. To make a salt-water mixture, completely dissolve -1 tsp of salt in 1 cup of warm water. Take over-the counter and prescription medicines only as told by your dentist. If you have a permanent tooth knocked out: Find the tooth. Pick it up by the top (crown) with a tissue or gauze. Wash the tooth for no more than 10 seconds under cold, running water. Try to put the tooth back into the gum socket. Put the tooth in a glass of milk if you cannot get it back in place. Go to your dentist right away. Take the tooth with you. WHEN SHOULD I SEEK MEDICAL CARE? Call your dentist if you have: Gum, tooth, or jaw pain. Red, swollen, or bleeding gums. A tooth or teeth that are very sensitive to hot or cold. Very bad breath. A problem with a filling, crown, implant, or denture. A broken or loose tooth. A growth or sore in your mouth that is not going away. FOR MORE INFORMATION [employer]: www.ada.org This information is not intended to replace advice given to you by your health care provider. Make sure you discuss any questions you have with your health care provider. Document Released: 06/13/2016 Document Reviewed: 06/13/2016 [employer] Interactive Patient Education 2016 [employer] No follow up information was provided. Extracted from: Title: Office Visit Note Author: Bhaskar Echols MD Date: 12/19/16 Assessment/Plan 1.Chronic gingivitis, plaque induced Again have informed him to take the Keflex 500mg tid that he has at home and to get it refill for another 5 days. Warm salt water gargles. And sample of the Nsaid given and informed him to ta ke one bid. He needs to see a dentist to have the rest of the teeth pulled. Ordered: Office Visit Level 3 Est [id number]
--- OUTSIDE RECORDS SUMMARY | 2018-05-05 10:31 | External Medical Summary | Referral Summary ---
:1940 Author Organization [facility] [place] [address] Care Team Providers Name Role Phone Reza Gomez Primary Care Physician Encounter [facility] Date(s): 07/04/17 - 07/04/17 [facility] [place] [phone] [place] Discharge Diagnosis: CAD (coronary artery disease) Discharge Diagnosis: Chronic venous stasis dermatitis Discharge Diagnosis: CKD (chronic kidney disease) stage 3, GFR 30-59 ml/min Discharge Diagnosis: Lymphedema of leg Discharge Diagnosis: Benign essential hypertension Discharge Diagnosis: ERNESTINE (generalized anxiety disorder) Discharge Disposition: 01-Home or Self Care Attending Physician: Reza Gomez MD Admitting Physician: Reza Gomez MD Vital Signs Most recent to oldest [Reference Range]: 1 Temperature Tympanic [36.6-38.1 degC] 37.0 degC (07/04/17 1:42 PM) Peripheral Pulse Rate [60-100 bpm] 80 bpm (07/04/17 1:42 PM) Blood Pressure [90-140/60-90 mmHg] 150/60 mmHg *HI* (07/04/17 1:42 PM) Problem List Condition Effective Dates Status [...] Daily, # 90 tabs, 3 Refill(s), Pharmacy: [id number], 1 tabs Oral Daily Start Date: 03/21/17 Status: Orderedcitalopram 40 mg oral tablet tabs, Oral, Daily, 0 Refill(s) Start Date: 04/07/14 Status: Orderedfamotidine 20 mg oral tablet 20 mg 1 tabs, Oral, BID, as needed for itching, # 60 tabs, 11 Refill(s), Pharmacy: [id number], 1 tabs Oral BID,x30 days,PRN:as needed for [...] meal, # 90 tabs, 3 Refill(s), Pharmacy: [id number], 1 tabs Oral Daily,Instr:with evening [...] Patient Education Author: Reza Gomez MD Date: 07/04/17 Nephrology Chronic Kidney Disease, Adult Chronic kidney disease (CKD) occurs when the kidneys are damaged during a period of 3 or more months. The kidneys are two organs that do many important jobs in the body, which include: Removing wastes and extra fluids from the blood. Making hormones that maintain the amount of fluid in your tissues and blood vessels. Maintaining the right amount of fluids and chemicals in the body. A small amount of kidney damage may not cause problems, but a large amount of damage may make it difficult or impossible for the kidneys to work the way they should. If steps are not taken to slow down the kidney damage or stop it from getting worse, the kidneys may stop working permanently (end stage kidney disease). Most of the time, CKD does not go away, but it can often be controlled. People who have CKD can usually live normal lives. RISK FACTORS This condition is more likely to develop in people who are: Older than age 60. Female. Of -[place] descent. Current smokers or former smokers. Obese. You may also have an increased risk for CKD if you have a family history of CKDor youfrequently take medicines that are damaging to the kidneys. CAUSES The most common causes of this condition are diabetes and high blood pressure ( hypertension). Other causes include: Heart and blood vessel (cardiovascular) disease. Kidney diseases: Glomerulonephritis. Interstitial nephritis. Polycystic kidney disease. Renal vascular disease. Diseases that affect the immune system. Genetic diseases. Medicines that damage the kidneys, such as anti-inflammatory medicines. Poisoning. Being around or in contact with poisonous (toxic) substances. A kidney or urinary infection that occurs again (recurs). Vasculitis. Repeat kidney infections. A problem with urine flow that may be caused by: Cancer. Having kidney stones more than one time. An enlarged prostate in males. SIGNS AND SYMPTOMS Symptoms develop slowly and may not be obvious until the kidney damage becomes severe. It is possible to have a kidney disease for years without showing any symptoms. Symptoms of this condition can include: Swelling (edema) of the face, legs, ankles, or feet. Numbness, tingling, or loss of feeling (sensation) in the hands or feet. Tiredness (lethargy). Nausea or vomiting. Confusion or trouble concentrating. Problems with urination, such as: Painful or burning feeling during urination. Decreased urine production. Frequent urination, especially at night. Bloody urine. Muscle twitches and cramps, especially in the legs. Shortness of breath. Weakness. Constant itchiness. Loss of appetite. Metallic taste in the mouth. Trouble sleeping. Pale lining of the eyelids and surface of the eye (conjunctiva). DIAGNOSIS This condition may be diagnosed with various tests. Tests may include: Blood tests. Urine tests. Imaging tests. A test in which a sample of tissue is removed from the kidneys to be looked at under a microscope (kidney biopsy). These test results will help your health care provider determine what class of CKD you have. TREATMENT Most cases of CKD cannot be cured. Treatment usually involves relieving symptoms and preventing or slowing the progression of the disease. Treatment may include: A special diet, which may require you to avoid alcohol, salty foods (sodium), and foods that are high in potassium, calcium, and protein. Medicines: To lower blood pressure. To relieve low blood count (anemia). To relieve swelling. To protect your bones. To improve the balance of electrolytes in your blood. Removing toxic waste from the body by using hemodialysis or peritoneal dialysis if the kidneys can no longer do their job (kidney failure). Management of other conditions that are causing your CKD or making it worse. HOME CARE INSTRUCTIONS Follow your prescribed diet. Take atou-srk-scphuow and prescription medicines only as told by your health care provider. Do not take any new medicines unless approved by your health care provider. Many medicines can worsen your kidney damage. Do not take any vitamin and mineral supplements unless approved by your health care provider. Many nutritional supplements can worsen your kidney damage. The dose of some medicines that you take may need to be adjusted. Do not use any tobacco products, such as cigarettes, chewing tobacco, and e- cigarettes. If you need help quitting, ask your health care provider. Keep all follow-up visits as told by your health care provider. This is important. Keep track of your blood pressure. Report changes in your blood pressure as told by your health care provider. Achieve and maintain a healthy weight. If you need help with this, ask your health care provider. Start or continue an exercise plan. Try to exercise at least 30 minutes a day , 5 days a week. Stay current with immunizations as told by your health care provider. SEEK MEDICAL CARE IF: Your symptoms get worse. You develop new symptoms. SEEK IMMEDIATE MEDICAL CARE IF: You develop symptoms of end-stage kidney disease, which include: Headaches. Abnormally dark or light skin. Numbness in the hands or feet. Easy bruising. Frequent hiccups. Chest pain. Shortness of breath. End of menstruation in women. You have a fever. You have decreased urine production. You have pain or bleeding when you urinate. FOR MORE INFORMATION [employer] [employer]: www.aakp.org National Kidney Foundation: www.kidney.org [employer]: www.akfinc.org [employer] [facility]: www.lifeoptions.org and www.kidneyschool.org This information is not intended to replace advice given to you by your health care provider. Make sure you discuss any questions you have with your health care provider. Document Released: 07/02/2009 Document Revised: 01/14/2017 Document Reviewed: 05/22/2013 [employer] Interactive Patient Education 2017 [employer] No follow up information was provided. Extracted from: Title: several problems Author: Reza Gomez MD Date: 07/04/17 Impression and Plan Diagnosis Chronic venous stasis dermatitis (ABT93-VD I87.2, Discharge, Medical). Lymphedema of leg (SNQ16-XT I89.0, Discharge, Medical). CAD (coronary artery disease) (YIY61-KR I25.10, Discharge, Medical). Benign essential hypertension (GCZ99-TQ I10, Discharge, Medical). CKD (chronic kidney disease) stage 3, GFR 30-59 ml/min (JRZ58-SS N18.3, Discharge, Medical). ERNESTINE (generalized anxiety disorder) (JPW73-NG F41.1, Discharge, Medical). Plan: 1) Take Famotidine 20 mg twice a day as needed for itching. 2) May take the Loratadine 10 mg daily as needed for itching. 3) Continue the Mineral oil or Vaseline daily. 4) Wrap your legs and feet bilaterally in the AM and off and bedtime. Legs both wrapped with Eric wraps and Telfa applied to both feet. 5) Continue your current meds otherwise. 6) Right foot ulcer (weeping stasis dermatitis) was cultured. Results are pending.. Orders Orders (Selected) Outpatient Orders Ordered Office Visit Level 4 Est 10770: Ordered (Pending Collection) Wound Culture: Prescriptions Prescribed famotidine 20 mg oral tablet: 20 mg=1 tabs, Oral, BID, for 30 days, PRN: as needed for itching, 60 tabs, 11 Refill(s). Dx/Order Association Plan: Diagnosis: Benign essential hypertension Comment: Modified: Office Visit Level 4 Est 96807; 07/04/17 13:57:00 CDT, Chronic venous stasis dermatitis | Lymphedema of leg | CKD (chronic kidney disease) stage 3, GFR 30-59 ml/min | CAD (moss ry artery disease) | Benign essential hypertension | ERNESTINE (generalized anxiety disorder) Diagnosis: CAD (coronary artery disease) Comment: Modified: Office Visit Level 4 Est 68100; 07/04/17 13:57:00 CDT, Chronic venous stasis dermatitis | Lymphedema of leg | CKD (chronic kidney disease) stage 3, GFR 30-59 ml/min | CAD (moss ry artery disease) | Benign essential hypertension | ERNESTINE (generalized anxiety disorder) Diagnosis: CKD (chronic kidney disease) stage 3, GFR 30-59 ml/min Comment: Modified: Office Visit Level 4 Est 98880; 07/04/17 13:57:00 CDT, Chronic venous stasis dermatitis | Lymphedema of leg | CKD (chronic kidney disease) stage 3, GFR 30-59 ml/min | CAD (moss ry artery disease) | Benign essential hypertension | ERNESTINE (generalized anxiety disorder) Diagnosis: Chronic venous stasis dermatitis Comment: Ordered: Wound Culture; Ulcer, Foot R, Routine collect, 07/04/17 14:04:00 CDT, Stop date 07/04/17 14:04:00 CDT, Nurse Collect Non-Blood, Chronic venous stasis dermatitis Modified: Office Visit Level 4 Est 01021; 07/04/17 13:57:00 CDT, Chronic venous stasis dermatitis | Lymphedema of leg | CKD (chronic kidney disease) stage 3, GFR 30-59 ml/min | CAD (moss ry artery disease) | Benign essential hypertension | ERNESTINE (generalized anxiety disorder) Diagnosis: ERNESTINE (generalized anxiety disorder) Comment: Modified: Office Visit Level 4 Est 26539; 07/04/17 13:57:00 CDT, Chronic venous stasis dermatitis | Lymphedema of leg | CKD (chronic kidney disease) stage 3, GFR 30-59 ml/min | CAD (moss ry artery disease) | Benign essential hypertension | ERNESTINE (generalized anxiety disorder) Diagnosis: Lymphedema of leg Comment: Modified: Office Visit Level 4 Est 10695; 07/04/17 13:57:00 CDT, Chronic venous stasis dermatitis | Lymphedema of leg | CKD (chronic kidney disease) stage 3, GFR 30-59 ml/min | CAD (moss ry artery disease) | Benign essential hypertension | ERNESTINE (generalized anxiety disorder) Additional Orders: Comment: Ordered: famotidine 20 mg oral tablet,20 mg 1 tabs, Oral, BID, as needed for itching, # 60 tabs, 11 Refill(s), Pharmacy: [id number], 1 tabs Oral BID,x30 days,PRN:as needed for itching End of Orders ."
--- OUTSIDE RECORDS SUMMARY | 2018-05-05 10:31 | External Medical Summary | Referral Summary ---
:1940 Author Organization [facility] [place] [address] Care Team Providers Name Role Phone Bhaskar Echols Primary Care Physician Encounter [facility] [phone] Date(s): 12/13/16 - 12/13/16 [facility] [place] [phone] [place] Discharge Diagnosis: Anterior neck pain Discharge Diagnosis: COPD (chronic obstructive pulmonary disease) Discharge Diagnosis: Chronic gingivitis, plaque induced Discharge Disposition: 01-Home or Self Care Attending Physician: Bhaskar Echols MD Admitting Physician: Bhaskar Echols MD Vital Signs Most recent to oldest [Reference Range]: 1 Temperature Tympanic [36.6-38.1 degC] 36.2 degC *LOW* (12/13/16 10:10 AM) Blood Pressure [90-140/60-90 mmHg] 150/72 mmHg *HI* (12/13/16 10:10 AM) Problem List Condition Effective Dates Status [...] Daily, # 90 tabs, 2 Refill(s), Pharmacy: [id number], 1 tabs Oral Daily Start Date: 04/19/16 Status: Orderedcitalopram 40 mg oral tablet tabs, Oral, Daily, 0 Refill(s) Start Date: 04/07/14 Status: OrderedFiberCon 625 mg oral tablet 635m 3 daily, 0 Refill(s) Start Date: 04/07/14 Status: OrderedLasix 20 mg oral tablet 20 mg 1 tabs, Oral, Daily, # 30 tabs, 2 Refill(s), Pharmacy: [id number], 1 tabs Oral Daily Start Date: 11/23/16 Status: Orderedpravastatin 40 mg oral tablet 40 mg 1 tabs, Oral, Bedtime (once a day), X 90 days, # 90 tabs, 2 Refill(s), Pharmacy: [id number], 1 tabs Oral [...] Patient Education Author: Bhaskar Echols MD Date: 12/13/16 Dentistry Preventive Dental Care, Adult Preventive dental care [...] I CARE FOR MY TEETH AT HOME? [place] with an approved fluoride toothpaste every morning [...] is not going away. FOR MORE INFORMATION [employer]: www.ada.org This information is not intended to replace advice given to you by your health care provider. Make sure you discuss any questions you have with your health care provider. Document Released: 06/13/2016 Document Reviewed: 06/13/2016 [employer] Interactive Patient Education 2016 [employer] Diet and Dental Disease What you eat affects the health of your teeth. Choosing the right foods can help you to keep your teeth healthy and avoid dental problems, such as tooth decay and gum disease. You need to know which mervat ds can help to keep your teeth strong and which foods can cause problems for your teeth. If you do not get the proper nutrients in your diet, your body may be less able to prevent dental disease. Practicing good oral hygiene is very important in maintaining healthy teeth and gums. This includes brushing your teeth twice daily with fluoride toothpaste , flossing between your teeth daily, and visit ing your dentist regularly to have your teeth cleaned professionally. WHAT GENERAL GUIDELINES DO I NEED TO FOLLOW? Food Guidelines Eat a healthy, well-balanced diet that includes a variety of foods in moderate amounts every day. Eat less of foods that contain high amounts of sugar or easily digested (refined), simple carbohydrates. Your diet should include: Fiber-rich fruits and vegetables. Lean sources of protein. These include eggs, lean meat, chicken, fish, and low -fat or fat-free dairy products. Whole grains. These include brown rice, whole-wheat bread, and pasta. Fresh, whole, and unprocessed foods. These foods help you to produce more saliva, which is important for good dental health. Try to wait at least 2 hours between meals, snacks, and drinks. Avoid foods that are rich in simple sugars or carbohydrates, such as candies, cakes, and syrups. Eating these foods often over a long period of time can increase your risk of developing cavities (dental caries). Avoid eating sticky or acidic foods by themselves, such as caramel, dried fruit, jams, or citrus fruits. If you eat these types of foods, eat them with meals rather than between meals. Chew sugar-free gum right after a meal or snack. Beverage Guidelines Rinse your mouth with water after eating sugary snacks. Avoid sipping drinks that are sweetened with sugar, such as soda. Sipping these drinks for prolonged periods can increase your risk of dental caries. Avoid holding or swishing acidic or sugary drinks in your mouth. WHAT FOODS MAY INCREASE MY RISK OF DENTAL PROBLEMS? Any food or drink that contains sugar or is sweetened with sugar. These should be avoided in general or only eaten in moderation. This list includes fruit drinks, carbonated beverages, sport or ener gy drinks, as well as sweetened coffees and teas. Sticky foods. These include raisins, other dried fruit, and candies that are sticky, hard, or slow to melt. It is best to avoid these. Foods that are high in refined carbohydrates or higher in sugar. These include cookies, cakes, muffins, chips, and crackers. Simple sugars, such as sucrose, honey, and molasses. Acidic foods and drinks. These include tomatoes, citrus fruits, coffee, and fruit juice. These foods and drinks can weaken tooth enamel, and that can cause tooth sensitivity, erosion, and pitting. The items listed above may not be a complete list of foods and beverages to limit or avoid. Contact your dietitian for more information. WHAT FOODS MAY DECREASE MY RISK OF DENTAL PROBLEMS? Foods that are high in vitamins C and A, such as fresh fruits and vegetables. These vitamins are important for keeping gums healthy and building tooth enamel. High-quality protein foods. These include lean meats, eggs, cheese, milk, yogurt, fish, beans, and legumes. Whole-grain breads and cereals that are low in sugar. Sugar-free chewing gum and sugar-free mints. Foods that are good sources of calcium. These include cheese, milk, plain yogurt, calcium-fortified tofu, leafy greens, and almonds. Water, especially fluoridated water. The items listed above may not be a complete list of recommended foods or beverages. Contact your dietitian for more options. This information is not intended to replace advice given to you by your health care provider. Make sure you discuss any questions you have with your health care provider. Document Released: 05/21/2012 Document Revised: 10/14/2015 Document Reviewed: 02/22/2015 [employer] Interactive Patient Education 2016 [employer]. Emergency Medicine Chronic Obstructive Pulmonary Disease Chronic obstructive pulmonary disease (COPD) is a common lung condition in which airflow from the lungs is limited. COPD is a general term that can be used to describe many different lung problems that limit airflow, including both chronic bronchitis and emphysema. If you have COPD, your lung function will probably never return to normal, but there are measures you can take to improve lung function and make yourself feel better. CAUSES Smoking (common). Exposure to secondhand smoke. Genetic problems. Chronic inflammatory lung diseases or recurrent infections. SYMPTOMS Shortness of breath, especially with physical activity. Deep, persistent (chronic) cough with a large amount of thick mucus. Wheezing. Rapid breaths (tachypnea). Liu or bluish discoloration (cyanosis) of the skin, especially in your fingers, toes, or lips. Fatigue. Weight loss. Frequent infections or episodes when breathing symptoms become much worse ( exacerbations). Chest tightness. DIAGNOSIS Your health care provider will take a medical history and perform a physical examination to diagnose COPD. Additional tests for COPD may include: Lung (pulmonary) function tests. Chest X-ray. CT scan. Blood tests. TREATMENT Treatment for COPD may include: Inhaler and nebulizer medicines. These help manage the symptoms of COPD and make your breathing more comfortable. Supplemental oxygen. Supplemental oxygen is only helpful if you have a low oxygen level in your blood. Exercise and physical activity. These are beneficial for nearly all people with COPD. Lung surgery or transplant. Nutrition therapy to gain weight, if you are underweight. Pulmonary rehabilitation. This may involve working with a team of health care providers and specialists, such as respiratory, occupational, and physical therapists. HOME CARE INSTRUCTIONS Take all medicines (inhaled or pills) as directed by your health care provider. Avoid ucxb-iuj-uqdjcrx medicines or cough syrups that dry up your airway ( such as antihistamines) and slow down the elimination of secretions unless instructed otherwise by your health care provider. If you are a smoker, the most important thing that you can do is stop smoking. Continuing to smoke will cause further lung damage and breathing trouble. Ask your health care provider for help with q uitting smoking. He or she can direct you to community resources or hospitals that provide support. Avoid exposure to irritants such as smoke, chemicals, and fumes that aggravate your breathing. Use oxygen therapy and pulmonary rehabilitation if directed by your health care provider. If you require home oxygen therapy, ask your health care provider whether you should purchase a pulse oximeter to measure your oxygen level at home. Avoid contact with individuals who have a contagious illness. Avoid extreme temperature and humidity changes. Eat healthy foods. Eating smaller, more frequent meals and resting before meals may help you maintain your strength. Stay active, but balance activity with periods of rest. Exercise and physical activity will help you maintain your ability to do things you want to do. Preventing infection and hospitalization is very important when you have COPD. Make sure to receive all the vaccines your health care provider recommends , especially the pneumococcal and influenza v accines. Ask your health care provider whether you need a pneumonia vaccine. Learn and use relaxation techniques to manage stress. Learn and use controlled breathing techniques as directed by your health care provider. Controlled breathing techniques include: Pursed lip breathing. Start by breathing in (inhaling) through your nose for 1 second. Then, purse your lips as if you were going to whistle and breathe out (exhale) through the pursed lips for 2 seconds. Diaphragmatic breathing. Start by putting one hand on your abdomen just above your waist. Inhale slowly through your nose. The hand on your abdomen should move out. Then purse your lips and exhale s lowly. You should be able to feel the hand on your abdomen moving in as you exhale. Learn and use controlled coughing to clear mucus from your lungs. Controlled coughing is a series of short, progressive coughs. The steps of controlled coughing are: 1. Lean your head slightly forward. 2. Breathe in deeply using diaphragmatic breathing. 3. Try to hold your breath for 3 seconds. 4. Keep your mouth slightly open while coughing twice. 5. Spit any mucus out into a tissue. 6. Rest and repeat the steps once or twice as needed. SEEK MEDICAL CARE IF: You are coughing up more mucus than usual. There is a change in the color or thickness of your mucus. Your breathing is more labored than usual. Your breathing is faster than usual. SEEK IMMEDIATE MEDICAL CARE IF: You have shortness of breath while you are resting. You have shortness of breath that prevents you from: Being able to talk. Performing your usual physical activities. You have chest pain lasting longer than 5 minutes. Your skin color is more cyanotic than usual. You measure low oxygen saturations for longer than 5 minutes with a pulse oximeter. MAKE SURE YOU: Understand these instructions. Will watch your condition. Will get help right away if you are not doing well or get worse. This information is not intended to replace advice given to you by your health care provider. Make sure you discuss any questions you have with your health care provider. Document Released: 07/03/2006 Document Revised: 10/14/2015 Document Reviewed: 05/20/2014 [employer] Interactive Patient Education 2016 [employer] No follow up information was provided. Extracted from: Title: Office Visit Note Author: Bhaskar Echols MD Date: 12/13/16 Assessment/Plan 1.COPD (chronic obstructive pulmonary disease) Patient given another sample of the Advair Diskus 250/50. Ordered: Office Visit Level 4 Est 45818 2.Chronic gingivitis, plaque induced Rx for Keflex to get started for the infectedgums. Suggest a Dental consult. Ordered: Office Visit Level 4 Est 99395 3.Anterior neck pain Pain over the cricoid cartilage and will try patientonZorvolex 35mg dailyor bid to start with. Ordered: Office Visit Level 4 Est 11163
--- OUTSIDE RECORDS SUMMARY | 2018-05-05 10:31 | External Medical Summary | Referral Summary ---
:1940 Author Organization [facility] [place] [address] Care Team Providers Name Role Phone Reza Gomez Primary Care Physician Encounter [facility] Date(s): 05/02/17 - 05/02/17 [facility] [place] [phone] Discharge Diagnosis: BPH with urinary obstruction Discharge Diagnosis: Venous stasis dermatitis Discharge Diagnosis: Chronic chest pain Discharge Diagnosis: Benign essential hypertension Discharge Diagnosis: Lymphedema of leg Discharge Diagnosis: Mild major depression Discharge Diagnosis: CKD (chronic kidney disease) stage 3, GFR 30-59 ml/min Discharge Diagnosis: CAD (coronary artery disease) Discharge Diagnosis: Mixed hyperlipidemia Discharge Diagnosis: ERNESTINE (generalized anxiety disorder) Discharge Diagnosis: Chronic obstructive pulmonary disease Discharge Disposition: 01-Home or Self Care Attending Physician: Reza Gomez MD Admitting Physician: Reza Gomez MD Vital Signs Most recent to oldest [Reference Range]: 1 Temperature Tympanic [36.6-38.1 degC] 36.2 degC *LOW* (05/02/17 4:09 PM) Peripheral Pulse Rate [60-100 bpm] 64 bpm (05/02/17 4:09 PM) Respiratory Rate [14-20 br/min] 18 br/min (05/02/17 4:09 PM) Blood Pressure [90-140/60-90 mmHg] 124/50 mmHg (05/02/17 4:09 PM) Problem List Condition Effective Dates Status [...] Daily, # 90 tabs, 3 Refill(s), Pharmacy: [id number], 1 tabs Oral Daily Start Date: 03/21/17 Status: Orderedcitalopram 40 mg oral tablet tabs, Oral, Daily, 0 Refill(s) Start Date: 04/07/14 Status: OrderedFiberCon 625 mg oral tablet 2 capsules, Oral, Daily, 0 Refill(s) Start Date: 04/07/14 Status: Orderedlovastatin 40 mg oral tablet 40 mg 1 tabs, Oral, Daily, with evening meal, # 90 tabs, 3 Refill(s), Pharmacy: [facility], 1 tabs Oral Daily,Instr:with evening meal Start Date: 02/05/17 Status: OrderedLovaza 1000 mg oral capsule 2,000 mg 2 caps, Oral, Daily, # 120 caps, 0 Refill(s) Start Date: 04/03/17 Status: OrderedVitamin B Complex oral tablet 1 tabs, Oral, Daily, 0 Refill(s) Start Date: 04/07/14 Status: OrderedVitamin D3 1000 intl units oral tablet 1,000 Intl_Units 1 tabs, Oral, Daily, # 30 tabs, 0 Refill(s) Start Date: 03/21/17 Status: Ordered Results No data available for [...] Patient Education Author: Reza Gomez MD Date: 05/02/17 Emergency Medicine Chronic Obstructive Pulmonary Disease Chronic [...] directed by your health care provider. Avoid [id number]-[id number] medicines or cough syrups that dry up [...] 07/03/2006 Document Revised: 10/14/2015 Document Reviewed: 05/20/2014 [employer] Interactive Patient Education 2016 [employer] No follow up information was provided. Extracted from: Title: multiple problems Author: Reza Gomez MD Date: 05/02/17 Impression and Plan Diagnosis CAD (coronary artery disease) (QGY34-SY I25.10, Discharge, Medical). Chronic chest pain (UXV79-BQ R07.9, Discharge, Medical). Benign essential hypertension (OZD04-CG I10, Discharge, Medical). Mixed hyperlipidemia (XCE47-TY E78.2, Discharge, Medical). CKD (chronic kidney disease) stage 3, GFR 30-59 ml/min (UPV66-BS N18.3, Discharge, Medical). ERNESTINE (generalized anxiety disorder) (COG97-XC F41.1, Discharge, Medical). Mild major depression (LGI50-AQ F32.0, Discharge, Medical). Chronic obstructive pulmonary disease (BCK08-TA J44.9, Discharge, Medical). BPH with urinary obstruction (SMW14-BD N40.1, Discharge, Medical). Lymphedema of leg (EZP06-WK I89.0, Discharge, Medical). Venous stasis dermatitis (WJE78-CR I83.10, Discharge, Medical). Plan: 1) You may discontinue your Advair, since you don't think that you need it. 2) You may stay off your Flomax, since you haven't needed it in the past 2 years or more. 3) Continue your other meds the same. 4) See me in 3 months and as needed. 5) Healthy diet and daily exercise helps most things. 6) Keep your consultation appointments coming up, as scheduled.. Orders Orders (Selected) Outpatient Orders Ordered Office Visit Level 4 Est 69783: . Dx/Order Association Plan: Diagnosis: BPH with urinary obstruction Comment: Ordered: Office Visit Level 4 Est [id number]; 05/02/17 15:54:00 CDT, Chronic obstructive pulmonary disease | Chronic chest pain | Mild major depression | ERNESTINE (generalized anxiety disorder) | Mi xed hyperlipidemia | Venous stasis dermatitis | Lymphedema of leg | Benign essential hypertension | CAD... Diagnosis: Benign essential hypertension Comment: Ordered: Office Visit Level 4 Est [id number]; 05/02/17 15:54:00 CDT, Chronic obstructive pulmonary disease | Chronic chest pain | Mild major depression | ERNESTINE (generalized anxiety disorder) | Mi xed hyperlipidemia | Venous stasis dermatitis | Lymphedema of leg | Benign essential hypertension | CAD... Diagnosis: CAD (coronary artery disease) Comment: Ordered: Office Visit Level 4 Est [id number]; 05/02/17 15:54:00 CDT, Chronic obstructive pulmonary disease | Chronic chest pain | Mild major depression | ERNESTINE (generalized anxiety disorder) | Mi xed hyperlipidemia | Venous stasis dermatitis | Lymphedema of leg | Benign essential hypertension | CAD... Diagnosis: CKD (chronic kidney disease) stage 3, GFR 30-59 ml/min Comment: Ordered: Office Visit Level 4 Est [id number]; 05/02/17 15:54:00 CDT, Chronic obstructive pulmonary disease | Chronic chest pain | Mild major depression | ERNESTINE (generalized anxiety disorder) | Mi xed hyperlipidemia | Venous stasis dermatitis | Lymphedema of leg | Benign essential hypertension | CAD... Diagnosis: Chronic chest pain Comment: Ordered: Office Visit Level 4 Est [id number]; 05/02/17 15:54:00 CDT, Chronic obstructive pulmonary disease | Chronic chest pain | Mild major depression | ERNESTINE (generalized anxiety disorder) | Mi xed hyperlipidemia | Venous stasis dermatitis | Lymphedema of leg | Benign essential hypertension | CAD... Diagnosis: Chronic obstructive pulmonary disease Comment: Ordered: Office Visit Level 4 Est 56286; 05/02/17 15:54:00 CDT, Chronic obstructive pulmonary disease | Chronic chest pain | Mild major depression | ERNESTINE (generalized anxiety disorder) | Mi xed hyperlipidemia | Venous stasis dermatitis | Lymphedema of leg | Benign essential hypertension | CAD... Diagnosis: ERNESTINE (generalized anxiety disorder) Comment: Ordered: Office Visit Level 4 Est [id number]; 05/02/17 15:54:00 CDT, Chronic obstructive pulmonary disease | Chronic chest pain | Mild major depression | ERNESTINE (generalized anxiety disorder) | Mi xed hyperlipidemia | Venous stasis dermatitis | Lymphedema of leg | Benign essential hypertension | CAD... Diagnosis: Lymphedema of leg Comment: Ordered: Office Visit Level 4 Est [id number]; 05/02/17 15:54:00 CDT, Chronic obstructive pulmonary disease | Chronic chest pain | Mild major depression | ERNESTINE (generalized anxiety disorder) | Mi xed hyperlipidemia | Venous stasis dermatitis | Lymphedema of leg | Benign essential hypertension | CAD... Diagnosis: Mild major depression Comment: Ordered: Office Visit Level 4 Est 65815; 05/02/17 15:54:00 CDT, Chronic obstructive pulmonary disease | Chronic chest pain | Mild major depression | ERNESTINE (generalized anxiety disorder) | Mi xed hyperlipidemia | Venous stasis dermatitis | Lymphedema of leg | Benign essential hypertension | CAD... Diagnosis: Mixed hyperlipidemia Comment: Ordered: Office Visit Level 4 Est 38812; 05/02/17 15:54:00 CDT, Chronic obstructive pulmonary disease | Chronic chest pain | Mild major depression | ERNESTINE (generalized anxiety disorder) | Mi xed hyperlipidemia | Venous stasis dermatitis | Lymphedema of leg | Benign essential hypertension | CAD... Diagnosis: Venous stasis dermatitis Comment: Ordered: Office Visit Level 4 Est 14900; 05/02/17 15:54:00 CDT, Chronic obstructive pulmonary disease | Chronic chest pain | Mild major depression | ERNESTINE (generalized anxiety disorder) | Mi xed hyperlipidemia | Venous stasis dermatitis | Lymphedema of leg | Benign essential hypertension | CAD... End of Orders ."
--- OUTSIDE RECORDS SUMMARY | 2018-05-05 10:32 | External Medical Summary | Referral Summary ---
:1940 Author Organization [facility] [place] [address] Care Team Providers Name Role Phone Reza Gomez Primary Care Physician Encounter [facility] Date(s): 07/02/17 - 07/02/17 [facility] [place] [phone] [place] Discharge Diagnosis: CKD (chronic kidney disease) stage 3, GFR 30-59 ml/min Discharge Diagnosis: CAD (coronary artery disease) Discharge Diagnosis: Lymphedema of leg Discharge Diagnosis: Venous stasis dermatitis Discharge Diagnosis: Benign essential hypertension Discharge Diagnosis: Mixed hyperlipidemia Discharge Disposition: 01-Home or Self Care Attending Physician: Reza Gomez MD Admitting Physician: Reza Gomez MD Vital Signs Most recent to oldest [Reference Range]: 1 Temperature Tympanic [36.6-38.1 degC] 36.8 degC (07/02/17 4:03 PM) Peripheral Pulse Rate [60-100 bpm] 67 bpm (07/02/17 4:03 PM) Blood Pressure [90-140/60-90 mmHg] 122/54 mmHg (07/02/17 4:03 PM) SpO2 96 % (07/02/17 4:03 PM) Problem List Condition Effective Dates Status [...] Daily, # 90 tabs, 3 Refill(s), Pharmacy: [facility], 1 tabs Oral Daily Start Date: 03/21/17 Status: Orderedcitalopram 40 mg oral tablet tabs, Oral, Daily, 0 Refill(s) Start Date: 04/07/14 Status: OrderedFiberCon 625 mg oral tablet 2 capsules, Oral, Daily, 0 Refill(s) Start Date: 04/07/14 Status: Orderedlovastatin 40 mg oral tablet 40 mg 1 tabs, Oral, Daily, with evening meal, # 90 tabs, 3 Refill(s), Pharmacy: [facility], 1 tabs Oral Daily,Instr:with [...] Patient Education Author: Reza Gomez MD Date: 07/02/17 Procedures Lymphedema Lymphedema is swelling that is caused by the abnormal collection of lymph under the skin. Lymph is fluid from the tissues in your body that travels in the lymphatic system. This system is part of the im mune system and includes lymph nodes and lymph vessels. The lymph vessels collect and carry the excess fluid, fats, proteins, and wastes from the tissues of the body to the bloodstream. This system also works to clean and remove bacteria and waste products from the body. Lymphedema occurs when the lymphatic system is blocked. When the lymph vessels or lymph nodes are blocked or damaged, lymph does not drain properly, causing an abnormal buildup of lymph. This leads to s welling in the arms or legs. Lymphedema cannot be cured by medicines, but various methods can be used to help reduce the swelling. CAUSES There are two types of lymphedema. Primary lymphedema is caused by the absence or abnormality of the lymph vessel at . Secondary lymphedema is more common. It occurs when the lymph vessel is damage d or blocked. Common causes of lymph vessel blockage include: Skin infection, such as cellulitis. Infection by parasites (filariasis). Injury. Cancer. Radiation therapy. Formation of scar tissue. Surgery. SYMPTOMS Symptoms of this condition include: Swelling of the arm or leg. A heavy or tight feeling in the arm or leg. Swelling of the feet, toes, or fingers. Shoes or rings may fit more tightly than before. Redness of the skin over the affected area. Limited movement of the affected limb. Sensitivity to touch or discomfort in the affected limb. DIAGNOSIS This condition may be diagnosed with: A physical exam. Medical history. Imaging tests, such as: Lymphoscintigraphy. In this test, a low dose of a radioactive substance is injected to trace the flow of lymph through the lymph vessels. MRI. CT scan. Duplex ultrasound. This test uses sound waves to produce images of the vessels and the blood flow on a screen. Lymphangiography. In this test, a contrast dye is injected into the lymph vessel to help show blockages. TREATMENT Treatment for this condition may depend on the cause. Treatment may include: Exercise. Certain exercises can help fluid move out of the affected limb. Massage. Gentle massage of the affected limb can help move the fluid out of the area. Compression. Various methods may be used to apply pressure to the affected limb in order to reduce the swelling. Wearing compression stockings or sleeves on the affected limb. Bandaging the affected limb. Using an external pump that is attached to a sleeve that alternates between applying pressure and releasing pressure. Surgery. This is usually only done for severe cases. For example, surgery may be done if you have trouble moving the limb or if the swelling does not get better with other treatments. If an underlying condition is causing the lymphedema, treatment for that condition is needed. For example, antibiotic medicines may be used to treat an infection. HOME CARE INSTRUCTIONS Activities Exercise regularly as directed by your health care provider. Do not sit with your legs crossed. When possible, keep the affected limb raised (elevated) above the level of your heart. Avoid carrying things with an arm that is affected by lymphedema. Remember that the affected area is more likely to become injured or infected. Take these steps to help prevent infection: Keep the affected area clean and dry. Protect your skin from cuts. For example, you should use gloves while cooking or gardening. Do not walk barefoot. If you shave the affected area, use an electric razor. General Instructions Take medicines only as directed by your health care provider. Eat a healthy diet that includes a lot of fruits and vegetables. Do not wear tight clothes, shoes, or jewelry. Do not use heating pads over the affected area. Avoid having blood pressure checked on the affected limb. Keep all follow-up visits as directed by your health care provider. This is important. SEEK MEDICAL CARE IF: You continue to have swelling in your limb. You have a fever. You have a cut that does not heal. You have redness or pain in the affected area. You have new swelling in your limb that comes on suddenly. You develop purplish spots or sores (lesions) on your limb. SEEK IMMEDIATE MEDICAL CARE IF: You have a skin rash. You have chills or sweats. You have shortness of breath. This information is not intended to replace advice given to you by your health care provider. Make sure you discuss any questions you have with your health care provider. Document Released: 07/20/2008 Document Revised: 01/14/2017 Document Reviewed: 08/31/2015 [employer] Interactive Patient Education 2017 [employer] No follow up information was provided. Extracted from: Title: several problems Author: Reza Gomez MD Date: 07/02/17 Impression and Plan Diagnosis CAD (coronary artery disease) (EWF46-NL I25.10, Discharge, Medical). Lymphedema of leg (WSY40-BB I89.0, Discharge, Medical). Benign essential hypertension (PMY89-YN I10, Discharge, Medical). CKD (chronic kidney disease) stage 3, GFR 30-59 ml/min (IHU21-MK N18.3, Discharge, Medical). Venous stasis dermatitis (XMZ92-LH I87.2, Discharge, Medical). Mixed hyperlipidemia (CME97-ZV E78.2, Discharge, Medical). Plan: 1) Use Vaseline or Mineral Oil to your legs twice a day. 2) Avoid sitting, due to your lymphedema. Walking or lying down is fine. 3) Continue your current meds. 4) Hospitalization reviewed. 5) See me in one month and as needed. 6) You wanted to postpone or cancel sleep evaluation.. Orders Orders (Selected) Outpatient Orders Ordered Office Visit Level 4 Est 70378: . Dx/Order Association Plan: Diagnosis: Benign essential hypertension Comment: Ordered: Office Visit Level 4 Est 88100; 07/02/17 15:26:00 CDT, Lymphedema of leg | Venous stasis dermatitis | CKD (chronic kidney disease) stage 3, GFR 30-59 ml/min | CAD (coronary artery disease) | Benign essential hypertension | Mixed hyperlipidemia Diagnosis: CAD (coronary artery disease) Comment: Ordered: Office Visit Level 4 Est 69307; 07/02/17 15:26:00 CDT, Lymphedema of leg | Venous stasis dermatitis | CKD (chronic kidney disease) stage 3, GFR 30-59 ml/min | CAD (coronary artery disease) | Benign essential hypertension | Mixed hyperlipidemia Diagnosis: CKD (chronic kidney disease) stage 3, GFR 30-59 ml/min Comment: Ordered: Office Visit Level 4 Est 33677; 07/02/17 15:26:00 CDT, Lymphedema of leg | Venous stasis dermatitis | CKD (chronic kidney disease) stage 3, GFR 30-59 ml/min | CAD (coronary artery disease) | Benign essential hypertension | Mixed hyperlipidemia Diagnosis: Lymphedema of leg Comment: Ordered: Office Visit Level 4 Est 89070; 07/02/17 15:26:00 CDT, Lymphedema of leg | Venous stasis dermatitis | CKD (chronic kidney disease) stage 3, GFR 30-59 ml/min | CAD (coronary artery disease) | Benign essential hypertension | Mixed hyperlipidemia Diagnosis: Mixed hyperlipidemia Comment: Ordered: Office Visit Level 4 Est 33418; 07/02/17 15:26:00 CDT, Lymphedema of leg | Venous stasis dermatitis | CKD (chronic kidney disease) stage 3, GFR 30-59 ml/min | CAD (coronary artery disease) | Benign essential hypertension | Mixed hyperlipidemia Diagnosis: Venous stasis dermatitis Comment: Ordered: Office Visit Level 4 Est 67317; 07/02/17 15:26:00 CDT, Lymphedema of leg | Venous stasis dermatitis | CKD (chronic kidney disease) stage 3, GFR 30-59 ml/min | CAD (coronary artery disease) | Benign essential hypertension | Mixed hyperlipidemia End of Orders ."
--- OUTSIDE RECORDS SUMMARY | 2018-05-05 10:32 | External Medical Summary | Referral Summary ---
:1940 Author Organization [facility] Address [address] [place] [address] [place] [address] Care Team Providers Name Role Phone Reza Gomez Primary Care Physician Encounter [facility] [id number] Date(s): 05/15/17 - 05/15/17 [facility] [address] [place] [address] [place] [phone] [place] Discharge Diagnosis: Renal mass Discharge Diagnosis: Benign prostatic hypertrophy Discharge Disposition: 01-Home or Self Care Attending Physician: Deshaun Maria MD Admitting Physician: Deshaun Maria MD Referring Physician: Reza Gomez MD Vital Signs Most recent to oldest [Reference Range]: 1 Blood Pressure [90-140/60-90 mmHg] 138/70 mmHg (05/15/17 2:38 PM) Problem List Condition Effective Dates Status [...] Daily, # 90 tabs, 3 Refill(s), Pharmacy: [facility], 1 tabs Oral Daily Start Date: 03/21/17 Status: Orderedcitalopram 40 mg oral tablet tabs, Oral, Daily, 0 Refill(s) Start Date: 04/07/14 Status: OrderedFiberCon 625 mg oral tablet 2 capsules, Oral, Daily, 0 Refill(s) Start Date: 04/07/14 Status: Orderedlovastatin 40 mg oral tablet 40 mg 1 tabs, Oral, Daily, with evening meal, # 90 tabs, 3 Refill(s), Pharmacy: [facility], 1 tabs Oral Daily,Instr:with evening [...] Extracted from: Title: Office Visit Note Author: Deshaun Maria MD Date: 05/15/17 77 yo M with BPH and very enlarged prostate, and incidental finding of left renal mass which has grown from 2.[address] in 2011 to 3.[address], has had 2 mm/year growth rate. 1.Benign prostatic hypertrophy Patient currently off all meds and has low bother LUTS. Will evaluate PVR in clinic f/u. Consider re-starting Finasteride for very enlarged prostate. Will not continue PSA checks based on current AUA guidelines which recommend against perfumer screening after age 70 years. 2.Renal mass Difficult to evaluate on non contrast CT scan. Will obtain renal US to evaluate the renal mass. RTC in [place] for follow up. Ordered: US Retroperitoneal Complete
[2018-05-05] MEDS ORDERED: ASPIRIN 81 MG CHEWABLE TABLET PO ONE (10:52)
--- NOTE | 2018-05-05 10:52 | XRay Report ---
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 The heart is mildly enlarged. There are no consolidating opacities or pleural effusions. There is no pneumothorax. The osseous structures are within normal limits for the patient's age. IMPRESSION: Mild cardiomegaly without evidence for overt CHF or pneumonia. 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 .
[2018-05-05] MEDS ORDERED: MORPHINE SULFATE 4mg INJECTION IVP PRN (12:17)
[2018-05-05] MEDS ORDERED: ONDANSETRON 4 MG/2 ML INJECTION IVP PRN (12:17)
[2018-05-05] MEDS ORDERED: SALINE FLUSH 10ml SYRINGE IV PRN (12:17)
[2018-05-05 13:37] VITALS: BMI 37.0
--- NOTE | 2018-05-05 13:49 | Cardiology History & Physical ---
History of Present Illness Chief complaint: chest pain, soa, dizziness HPI: Renato is a 78 year old male who is known to Dr. Pool's practice with a history of SOA, CAD, history of CABG in 2002, HLD, COPD and CKD who was last seen in our clinic in November. He reportedly has seen Dr. Lior Whitfield for some time and it was recommended that he have a stress test. He has not since followed up. Today he was at his PCPs Dr Gomez when he reported chest pain over the last 8-10 days which is sharp and brief, lasting only 5-6 seconds. He was sent to the ED for further evaluation. He also had some dizziness while laying in bed on his right side last evening at 6:30, and again in the ED. States he did not lay down in between to 2 episodes. His EKG is SR, 1st degree AVB, T wave inversion in precordial leads. Troponin is negative at 0.034, BNP 729, CXR showed mild cardiomegaly without evidence for overt CHF or pneumonia. Dr. Schulz was contacted for observation admission to rule out SD. Review of Systems - Constitutional Constitutional: Absent: chills, fatigue, fever(s) - EENMT Eyes: Absent: change in vision Balance: Absent: vertigo Mouth/Throat: Absent: sore throat - Cardiovascular Cardiovascular: Present: chest pain, edema. Absent: palpitations, syncope, dyspnea on exertion, orthopnea Vascular: Present: pedal edema - Respiratory Respiratory: Present: dyspnea on exertion. Absent: cough, dyspnea - Gastrointestinal Gastrointestinal: Absent: diarrhea, nausea, vomiting - Genitourinary Genitourinary: Absent: dysuria - Neurological Neurological: Present: dizziness - Endocrine Endocrine: Absent: palpitations PFSH Patient Stated Medical History Congestive Heart Failure Yes Hypertension Yes Hyperlipidemia Yes COPD Yes EMPHYSEMA CAD Yes Bronchitis Yes: PER H&P Other GI Yes: HEMORRHOIDS Other Yes: left kidney mass Osteoarthritis Yes: BILAT SHOULDERS Cellulitis Yes Blood Transfusions Yes Depression Yes Surgical History: CABG 2002 Family History: Denies family history of CAD, SD, CHF - Social History Smoking status: Never smoker Substance use type: does not use Alcohol intake frequency: does not drink Housing: homeless Household members: none Current occupational status: disabled Current occupation: [employer] Current residence: Homeless Medications Home Medications Medication Instructions Recorded Confirmed Type Atenolol [Tenormin] 12.5 mg PO DAILY 05/05/18 05/05/18 History Calcium Polycarbophil [Fiber] 1,300 mg PO DAILY 05/05/18 05/05/18 History Cholecalciferol (Vitamin D3) 1,000 unit PO DAILY 05/05/18 05/05/18 History [Vitamin D3] Citalopram [Celexa] 20 mg PO DAILY 05/05/18 05/05/18 History Famotidine [Pepcid] 20 mg PO BID PRN 05/05/18 05/05/18 History Furosemide [Lasix] 20 mg PO DAILY 05/05/18 05/05/18 History Hydrocortisone 1% Cream 1 applicatio TOP PRN PRN 05/05/18 05/05/18 History [Cortizone-10 Cream] Lovastatin [Mevacor] 40 mg PO DAILY 05/05/18 05/05/18 History Miconazole Nitrate [Antifungal 1 applicatio TP PRN PRN 05/05/18 05/05/18 History Cream] Potassium Chloride 10 meq PO DAILY 05/05/18 05/05/18 History Triamcinolone 0.1% Cream 15 G 1 applicatio TOP BID PRN 05/05/18 05/05/18 History [Kenalog] Vitamin B Complex Vit C No.4 150 mg PO DAILY 05/05/18 05/05/18 History [Super B Complex] Allergies Allergy/AdvReac Type Severity Reaction Status Date / Time phenylephrine AdvReac Intermediate Urinary Verified 05/06/18 07:19 Retention pseudoephedrine AdvReac Intermediate Urinary Verified 05/06/18 07:18 Retention Exam Vital signs: Temperature 98.2 F 05/05/18 09:30 Pulse Rate 53 L 05/05/18 12:00 Respiratory Rate 20 05/05/18 10:32 Blood Pressure 139/64 05/05/18 12:00 Pulse Oximetry 95 05/05/18 12:00 - Constitutional no acute distress, obese, cooperative - Routine HEENT Exam Head: Present: normocephalic ENT: Present: mucous membranes moist - Routine Neck Exam Absent: carotid bruit - Routine Chest/Breast/Axilla Exam Chest wall: Absent: tenderness - Routine Respiratory Exam Present: CTA bilaterally. Absent: dyspnea, rales, wheezes - Routine Cardiovascular Exam Present: RRR, no murmur - Routine Abdominal Exam Present: soft, non tender - Routine Extremities Exam Present: edema - Routine Skin Exam Present: intact, dry, warm - Routine Neurological Exam Present: alert, oriented X3 - Routine Psychiatric Exam Present: normal affect, normal thought process Results 05/06/18 04:47 05/06/18 04:47 Cardiac Enzymes 05/05/18 Range/Units 09:47 AST 17 (17-59) U/L Troponin I 0.025 (0-0.12) ng/ml CBC 05/05/18 Range/Units 09:47 WBC 5.9 (4.5-11.0) T/MM3 RBC 4.17 L (4.50-5.90) M/MM3 Hgb 12.4 L (13.5-17.5) GM/DL Hct 37.6 L (41-53) % Plt Count 136 (130-400) T/MM3 Neut # (Auto) 3.8 (1.8-7.7) T/MM3 Lymph # (Auto) 1.3 (1-4.8) T/MM3 [place] # (Auto) 0.6 (0-0.8) T/MM3 Eos # (Auto) 0.2 (0-0.5) T/MM3 Baso # (Auto) 0.0 (0-0.2) T/MM3 Comprehensive Metabolic Panel 05/05/18 Range/Units 09:47 Sodium 142 (136-146) MEQ/L Potassium 4.2 (3.6-5) MEQ/L Chloride 111 H (98-107) MEQ/L Carbon Dioxide 21 L (22-30) MEQ/L BUN 28.0 H (9-20) MG/DL Creatinine 1.8 H (0.8-1.5) mg/dL Glucose 124 H (75-110) MG/DL Calcium 9.0 (8.4-10.2) MG/DL AST 17 (17-59) U/L ALT 12 (1-50) U/L Alkaline Phosphatase 53 (38-126) U/L Total Protein 6.7 (6.3-8.2) g/dL Albumin 4.0 (3.5-5.0) g/dL Intake and Output 05/04/18 05/05/18 05/05/18 22:59 06:59 14:59 Other: Weight 236 lb 8.896 oz Patient Weight 05/06/18 06:59 Weight 236 lb 8.896 oz - Imaging and Cardiology Imaging & Cardiology Narrative: Date of Exam: 05/05/18 Type of Exam(s): US echo doppler complete DATE OF PROCEDURE 05/05/2018 PROCEDURE PERFORMED 2D echocardiography, M-mode assessment, full color spectral Doppler assessment. FINDINGS 1. LEFT VENTRICLE. Left ventricle appears normal in size. There is moderate to severe concentric left ventricular hypertrophy noted. Normal left ventricular systolic function noted. Estimated left ventricular ejection fraction is 60-65%. No regional wall motion abnormalities noted. Diastolic function appears normal for the patient's age. 2. RIGHT VENTRICLE. Right ventricle appears normal in size. Normal right ventricular wall thickness noted. Normal right ventricular systolic function noted. 3. RIGHT ATRIUM. Right atrium appears normal in size. 4. LEFT ATRIUM. Left atrium appears moderately enlarged. 5. MITRAL VALVE. There is moderate posterior annular mitral calcification noted. There is mild to moderate leaflet thickening and calcification of anterior leaflet noted. There is moderate mitral regurgitation noted. Eccentric posterior directed jet noted. No significant mitral stenosis noted. 6. AORTIC VALVE. Aortic valve appears trileaflet. There is mild aortic sclerosis noted. There is mild to moderate aortic regurgitation noted. No significant aortic stenosis noted. 7. TRICUSPID VALVE. Tricuspid valve appears structurally normal. There is mild to moderate tricuspid regurgitation noted. 8. PULMONIC VALVE. Pulmonic valve poorly visualized on today's study. Trivial pulmonic regurgitation noted. 9. INFERIOR VENA CAVA. Inferior vena cava appears normal in size. Normal respirophasic variation noted. 10. PULMONARY ARTERY. Pulmonary artery systolic pressure is mildly increased. Estimated pulmonary artery systolic pressure is 35-40 mmHg. CONCLUSIONS 1. Normal left ventricular systolic function, estimated ejection fraction of 60 -65%. 2. Normal right ventricular systolic function. 3. Moderate mitral regurgitation noted. 4. Mild to moderate aortic regurgitation noted. 5. Mild to moderate tricuspid regurgitation noted. 6. Inferior vena cava appears normal in size with normal respirophasic variation noted. 7. Estimated pulmonary artery systolic pressure is 35-40 mmHg. 05/06/18 16:32 05/06/18 16:32 Date of Exam: 05/05/18 Ordering Provider: Yuri Johnson DO Type of Exam(s): XR chest 1V Reason for Exam(s): pain EXAM: XR chest 1V LOCATION OF DICTATION: [place] HISTORY: pain COMPARISON: August 30, 2017 FINDINGS: Postsurgical changes of median sternotomy and CABG. The heart is mildly enlarged. There are no consolidating opacities or pleural effusions. There is no pneumothorax. The osseous structures are within normal limits for the patient's age. IMPRESSION: Mild cardiomegaly without evidence for overt CHF or pneumonia. 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 EKG interpretations - EKG EKG results cardiology: sinus rhythm - Blocks, axis, hypertrophy, ST abn AV and intraventricular conduction: 1 AV block Repolarization changes or abnormalities: nonspecific abnormality, ST segment, and/or T wave Hospital Course This is a general summary of the patient's hospital course. For more details refer to the complete medical record. Time spent with patient: 25 - 35 minutes Resuscitation Status: Full Code Assessment and Plan - Assessment and Plan (1) Vertigo Current visit: Yes Status: Acute worsens on right side. - monitor telemetry for pauses, blocks - Follow up with PCP for further evaluation. - Plan outpatient holter monitor to rule out pauses/blocks (2) Precordial chest pain Current visit: Yes Status: Acute Last 8-10 days which is sharp and brief, lasting only 5-6 seconds. none today. -EKG: SR, 1st degree AVB, T wave inversion in precordial leads. -Initial troponin is negative at 0.034, trend serial troponin - Monitor cardiac telemetry - 2D echo to check for valvular disease or LV dysfunction. - Plan outpatient stress test (3) Exertional dyspnea Current visit: Yes Status: Chronic Chronic. Reported SOA when last seen in November. Was recommended to have stress test. patient did not follow up. -O2 saturation 95% on room air, in no distress - 2D echo to check for valvular disease or LV dysfunction. (4) Diastolic CHF Current visit: No Status: Chronic BNP 729, CXR showed mild cardiomegaly without evidence for overt CHF or pneumonia - 2D echo to check for valvular disease or LV dysfunction. (5) COPD (chronic obstructive pulmonary disease) Current visit: No Status: Chronic PCP manages (6) HLD (hyperlipidemia) Current visit: No Status: Chronic takes Lovastatin, PCP manages (7) Coronary artery disease involving autologous vein bypass graft Current visit: No Status: Chronic continue current medical therapy with routine monitoring
[2018-05-05] MEDS: ENOXAPARIN 40 MG/0.4 ML INJECTION SQ SCH (14:56)
[2018-05-05] MEDS ORDERED: ACETAMINOPHEN 325 MG TABLET PO PRN (21:49)
[2018-05-05] MEDS ORDERED: CALCIUM CARBONATE Chewable 500mg TABLET PO PRN (21:51)
[2018-05-05] MEDS: ATENOLOL 25 MG TABLET PO SCH (22:03)
[2018-05-06 00:28] VITALS: RESP 16
[2018-05-06 07:13] VITALS: TEMP 97.6
[2018-05-06] MEDS: ENOXAPARIN 40 MG/0.4 ML INJECTION SQ SCH (08:58)
[2018-05-06] MEDS: ATENOLOL 25 MG TABLET PO SCH (09:45)
[2018-05-06 11:55] VITALS: BP 135/66; O2SAT 92
--- NOTE | 2018-05-06 16:25 | Echocardiogram ---
DATE OF PROCEDURE 05/05/2018 PROCEDURE PERFORMED 2D echocardiography, M-mode assessment, full color spectral Doppler assessment. INDICATION: Murmur, Valvular abnormalities FINDINGS 1. LEFT VENTRICLE. Left ventricle appears normal in size. There is moderate to severe concentric left ventricular hypertrophy noted. Normal left ventricular systolic function noted. Estimated left ventricular ejection fraction is 60-65%. No regional wall motion abnormalities noted. Diastolic function appears normal for the patient's age. 2. RIGHT VENTRICLE. Right ventricle appears normal in size. Normal right ventricular wall thickness noted. Normal right ventricular systolic function noted. 3. RIGHT ATRIUM. Right atrium appears normal in size. 4. LEFT ATRIUM. Left atrium appears moderately enlarged. 5. MITRAL VALVE. There is moderate posterior annular mitral calcification noted. There is mild to moderate leaflet thickening and calcification of anterior leaflet noted. There is moderate mitral regurgitation noted. Eccentric posterior directed jet noted. No significant mitral stenosis noted. 6. AORTIC VALVE. Aortic valve appears trileaflet. There is mild aortic sclerosis noted. There is mild to moderate aortic regurgitation noted. No significant aortic stenosis noted. 7. TRICUSPID VALVE. Tricuspid valve appears structurally normal. There is mild to moderate tricuspid regurgitation noted. 8. PULMONIC VALVE. Pulmonic valve poorly visualized on today's study. Trivial pulmonic regurgitation noted. 9. INFERIOR VENA CAVA. Inferior vena cava appears normal in size. Normal respirophasic variation noted. 10. PULMONARY ARTERY. Pulmonary artery systolic pressure is mildly increased. Estimated pulmonary artery systolic pressure is 35-40 mmHg. CONCLUSIONS 1. Normal left ventricular systolic function, estimated ejection fraction of 60 -65%. 2. Normal right ventricular systolic function. 3. Moderate mitral regurgitation noted. 4. Mild to moderate aortic regurgitation noted. 5. Mild to moderate tricuspid regurgitation noted. 6. Inferior vena cava appears normal in size with normal respirophasic variation noted. 7. Estimated pulmonary artery systolic pressure is 35-40 mmHg. MTDD
--- NOTE | 2018-05-06 16:37 | Discharge Summary ---
Discharge Information Date of admission: 05/05/18 11:33 Anticipated date of discharge: 05/06/18 Attending Physician: Bret Schulz MD Primary care physician: Reza Gomez MD - Discharge Diagnosis (1) Vertigo Status: Acute (2) Precordial chest pain Status: Acute (3) Exertional dyspnea Status: Chronic (4) Diastolic CHF Status: Chronic (5) COPD (chronic obstructive pulmonary disease) Status: Chronic (6) HLD (hyperlipidemia) Status: Chronic (7) Coronary artery disease involving autologous vein bypass graft Status: Chronic Vertigo Precordial chest pain Exertional dyspnea Diastolic CHF COPD (chronic obstructive pulmonary disease) HLD (hyperlipidemia) Coronary artery disease involving autologous vein bypass graft - Laboratory Labs: 05/06/18 04:47 05/06/18 04:47 History of Present Illness HPI: Renato is a 78 year old male who is known to Dr. Pool's practice with a history of SOA, CAD, history of CABG in 2002, HLD, COPD and CKD who was last seen in our clinic in November. He reportedly has seen Dr. Lior Whitfield for some time and it was recommended that he have a stress test. He has not since followed up. Today he was at his PCPs Dr Gomez when he reported chest pain over the last 8-10 days which is sharp and brief, lasting only 5-6 seconds. He was sent to the ED for further evaluation. He also had some dizziness while laying in bed on his right side last evening at 6:30, and again in the ED. States he did not lay down in between to 2 episodes. His EKG is SR, 1st degree AVB, T wave inversion in precordial leads. Troponin is negative at 0.034, BNP 729, CXR showed mild cardiomegaly without evidence for overt CHF or pneumonia. Dr. Schulz was contacted for observation admission to rule out NH. Hospital Course This is a general summary of the patient's hospital course. For more details refer to the complete medical record. Hospital course: Vertigo Current visit: Yes Status: Acute - worsens on right side. - monitor telemetry for pauses, blocks - Follow up with PCP for further evaluation. - Plan outpatient holter monitor to rule out pauses/blocks Precordial chest pain Current visit: Yes Status: Acute - Last 8-10 days which is sharp and brief, lasting only 5-6 seconds. none today. -EKG: SR, 1st degree AVB, T wave inversion in precordial leads. -Initial troponin is negative at 0.034, trend serial troponin - Monitor cardiac telemetry - 2D echo to check for valvular disease or LV dysfunction. - Plan outpatient stress test Exertional dyspnea Current visit: Yes Status: Chronic - Chronic. Reported SOA when last seen in November. Was recommended to have stress test. patient did not follow up. -O2 saturation 95% on room air, in no distress - 2D echo to check for valvular disease or LV dysfunction. Diastolic CHF Current visit: No Status: Chronic - BNP 729, CXR showed mild cardiomegaly without evidence for overt CHF or pneumonia - 2D echo to check for valvular disease or LV dysfunction. COPD (chronic obstructive pulmonary disease) Current visit: No Status: Chronic - PCP manages HLD (hyperlipidemia) Current visit: No Status: Chronic - takes Lovastatin, PCP manages Coronary artery disease involving autologous vein bypass graft Current visit: No Status: Chronic - continue current medical therapy with routine monitoring Exam Vital signs: Temperature 97.6 F 05/06/18 07:10 Pulse Rate 61 05/06/18 11:53 Respiratory Rate 16 05/06/18 11:53 Blood Pressure 135/66 05/06/18 11:53 Pulse Oximetry 92 05/06/18 11:53 - Constitutional no acute distress, well nourished, cooperative - Routine HEENT Exam Head: Present: normocephalic ENT: Present: mucous membranes moist - Routine Neck Exam Absent: JVD, carotid bruit - Routine Chest/Breast/Axilla Exam Chest wall: Absent: tenderness - Routine Respiratory Exam Present: CTA bilaterally. Absent: dyspnea, rales, crackles - Routine Cardiovascular Exam Present: RRR, no murmur - Routine Abdominal Exam Present: soft, non tender - Routine Extremities Exam Present: edema - Routine Skin Exam Present: intact, dry, warm - Routine Neurological Exam Present: alert - Routine Psychiatric Exam Present: normal affect Results 05/06/18 04:47 05/06/18 04:47 Cardiac Enzymes 05/05/18 Range/Units 20:10 Troponin I 0.022 (0-0.12) ng/ml CBC 05/06/18 Range/Units 04:47 WBC 5.0 (4.5-11.0) T/MM3 RBC 4.13 L (4.50-5.90) M/MM3 Hgb 12.2 L (13.5-17.5) GM/DL Hct 37.2 L (41-53) % Plt Count 131 (130-400) T/MM3 Neut # (Auto) 3.6 (1.8-7.7) T/MM3 Lymph # (Auto) 0.8 L (1-4.8) T/MM3 [place] # (Auto) 0.4 (0-0.8) T/MM3 Eos # (Auto) 0.2 (0-0.5) T/MM3 Baso # (Auto) 0.0 (0-0.2) T/MM3 Comprehensive Metabolic Panel 05/06/18 Range/Units 04:47 Sodium 141 (136-146) MEQ/L Potassium 4.4 (3.6-5) MEQ/L Chloride 110 H (98-107) MEQ/L Carbon Dioxide 24 (22-30) MEQ/L BUN 26.0 H (9-20) MG/DL Creatinine 1.3 D (0.8-1.5) mg/dL Glucose 144 H (75-110) MG/DL Calcium 8.8 (8.4-10.2) MG/DL Intake and Output 05/06/18 05/06/18 05/06/18 06:59 14:59 22:59 Intake Total 236 / 236 890 / 890 180 / 180 Output Total 650 / 650 200 / 200 125 / 125 Balance -414 / -414 690 / 690 55 / 55 Intake: Oral 236 / 236 890 / 890 180 / 180 Output: Urine 650 / 650 200 / 200 125 / 125 Other: Urine Appearance Clear Clear Clear Urine Color Dark Yellow Yellow Yellow Urine Odor Normal Normal Normal Stool Color Jefry Colored Size of Bowel Movement Small Weight 235 lb 10.786 oz Patient Weight 05/07/18 06:59 Weight 235 lb 10.786 oz - Imaging and Cardiology Imaging & Cardiology Narrative: Date of Exam: 05/05/18 Type of Exam(s): US echo doppler complete DATE OF PROCEDURE 05/05/2018 PROCEDURE PERFORMED 2D echocardiography, M-mode assessment, full color spectral Doppler assessment. FINDINGS 1. LEFT VENTRICLE. Left ventricle appears normal in size. There is moderate to severe concentric left ventricular hypertrophy noted. Normal left ventricular systolic function noted. Estimated left ventricular ejection fraction is 60-65%. No regional wall motion abnormalities noted. Diastolic function appears normal for the patient's age. 2. RIGHT VENTRICLE. Right ventricle appears normal in size. Normal right ventricular wall thickness noted. Normal right ventricular systolic function noted. 3. RIGHT ATRIUM. Right atrium appears normal in size. 4. LEFT ATRIUM. Left atrium appears moderately enlarged. 5. MITRAL VALVE. There is moderate posterior annular mitral calcification noted. There is mild to moderate leaflet thickening and calcification of anterior leaflet noted. There is moderate mitral regurgitation noted. Eccentric posterior directed jet noted. No significant mitral stenosis noted. 6. AORTIC VALVE. Aortic valve appears trileaflet. There is mild aortic sclerosis noted. There is mild to moderate aortic regurgitation noted. No significant aortic stenosis noted. 7. TRICUSPID VALVE. Tricuspid valve appears structurally normal. There is mild to moderate tricuspid regurgitation noted. 8. PULMONIC VALVE. Pulmonic valve poorly visualized on today's study. Trivial pulmonic regurgitation noted. 9. INFERIOR VENA CAVA. Inferior vena cava appears normal in size. Normal respirophasic variation noted. 10. PULMONARY ARTERY. Pulmonary artery systolic pressure is mildly increased. Estimated pulmonary artery systolic pressure is 35-40 mmHg. CONCLUSIONS 1. Normal left ventricular systolic function, estimated ejection fraction of 60 -65%. 2. Normal right ventricular systolic function. 3. Moderate mitral regurgitation noted. 4. Mild to moderate aortic regurgitation noted. 5. Mild to moderate tricuspid regurgitation noted. 6. Inferior vena cava appears normal in size with normal respirophasic variation noted. 7. Estimated pulmonary artery systolic pressure is 35-40 mmHg. 05/06/18 16:37 05/06/18 16:37 Date of Exam: 05/05/18 Ordering Provider: Yuri Johnson DO Type of Exam(s): XR chest 1V Reason for Exam(s): pain EXAM: XR chest 1V LOCATION OF DICTATION: [place] HISTORY: pain COMPARISON: August 30, 2017 FINDINGS: Postsurgical changes of median sternotomy and CABG. The heart is mildly enlarged. There are no consolidating opacities or pleural effusions. There is no pneumothorax. The osseous structures are within normal limits for the patient's age. IMPRESSION: Mild cardiomegaly without evidence for overt CHF or pneumonia. 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 . - EKG Interpretation EKG: sinus rhythm Discharge Plan - Med Rec/Dispo Referrals/Follow Up: Bret Schulz MD [Physician] - 2 Weeks Prescriptions: New Meclizine [Antivert] 12.5 mg PO Q6H PRN #30 tab PRN Reason: Vertigo Continue Triamcinolone 0.1% Cream 15 G [Kenalog] 1 applicatio TOP BID PRN PRN Reason: Prn Orders Miconazole Nitrate [Antifungal Cream] 1 applicatio TP PRN PRN PRN Reason: Prn Orders Hydrocortisone 1% Cream [Cortizone-10 Cream] 1 applicatio TOP PRN PRN PRN Reason: Prn Orders Cholecalciferol (Vitamin D3) [Vitamin D3] 1,000 unit PO DAILY Vitamin B Complex Vit C No.4 [Super B Complex] 150 mg PO DAILY Lovastatin [Mevacor] 40 mg PO DAILY Famotidine [Pepcid] 20 mg PO BID PRN PRN Reason: Itching Atenolol [Tenormin] 12.5 mg PO DAILY Furosemide [Lasix] 20 mg PO DAILY Citalopram [Celexa] 20 mg PO DAILY Potassium Chloride 10 meq PO DAILY Calcium Polycarbophil [Fiber] 1,300 mg PO DAILY - Disposition 01 Discharged Home, Self-Care - Dismissal Complete Discharge Instructions are:: Complete
[2018-05-06] MEDS ORDERED: MECLIZINE 12.5 MG TABLET PO PRN (16:38)
[2018-05-06 16:50] VITALS: PULSE 65
[2018-05-06] MEDS ORDERED: ATENOLOL 25 MG TABLET PO SCH (21:00)
== END 2018-05-06 18:22 | disposition home or self-care (01) ==
LOC: EDHOLD 09:29 → ED 09:29 → EDHOLD 12:25 → SRG 12:50
PROVIDERS: ADMIT Internal Medicine Interventional Cardiology; ATTEND Internal Medicine Interventional Cardiology